=== PATIENT | male | born 1970 | race Two or more races ===

== ENCOUNTER 2024-04-06 19:02 | Emergency (ER) | payer OTHER, SELFPAY ==
[2024-04-06 19:03] VITALS: BMI 28.7
--- NOTE | 2024-04-06 19:11 | XR_ITS ---
Examination: PA lateral chest 2 views Technique: Upright AP lateral chest 2 views Exam date and time: April 06, 2019 0950 hrs. Indications: Shortness of breath chest pain today Findings: Moderate enlargement left ventricle Mild elevation right hemidiaphragm No pneumonia or pulmonary edema Impression: Moderate enlargement left ventricle No pneumonia or pulmonary edema
[2024-04-06 19:16] VITALS: BP 144/103; PULSE 73; RESP 21; TEMP 36.4; O2SAT 100
--- NOTE | 2024-04-06 19:19 | XR_ITS ---
Examination: CT abdomen with intravenous contrast CT pelvis with intravenous contrast 2-D coronal reconstructions 2-D sagittal reconstructions Date and time of exam:April 06, 2024 at 1013 hrs. Indications: Onset left lower abdominal pain beginning last week. CTDI: vol (mGy) 9.31 DLP: (mGycm) 626 Technique: Multiple axial sections of the abdomen and pelvis have been obtained. 64 slice high-resolution scanner used. 3 mm axial sections have been obtained, post intravenous injection 60 cc [id number] 2-D sagittal, coronal reconstructions obtained. Low dose protocols were performed. One or more of the following dose reduction techniques were used; automated exposure control, adjustment of the mA and/or KV according to patient size, use of iterative reconstruction technique. Findings: Bibasilar pneumonia Fatty infiltration throughout the liver No gallstones No splenic pancreatic or adrenal mass Abdominal aorta normal size Moderate bilateral renal parenchymal scar formation, no hydronephrosis Fluid distended small bowel loops in the central and left abdomen with significant wall thickening No free air Free fluid in extensive edema involving the small bowel loops Colonic diverticulosis with inflammatory change about the diverticula No dima pelvic abscess Urinary bladder intact Impression: Bibasilar pneumonia Acute diverticulitis pattern, no pelvic abscess Markedly abnormal small bowel loops with fluid distention wall thickening, consider enteritis such as Crohn's disease, clinical correlation advised
--- NOTE | 2024-04-06 19:20 | PD.EDRME ---
Rapid Medical Screening Exam RME Arrival date/time: 04/06/24 19:02 53 yo m present to ED for c/o of LLQ for 1 week, pain worsen today. + sob I have greeted and performed a focused initial assessment of this patient. A comprehensive ED assessment and evaluation of the patient, analysis of all test results, and completion of the medical decision making process will be conducted by additional ED providers. Chief Complaint: Abdominal Pain Time Seen by Provider: 04/06/24 19:08 Vital signs: Vital Signs Temperature 97.6 F 04/06/24 19:16 Pulse Rate 73 04/06/24 19:16 Respiratory Rate 21 H 04/06/24 19:16 Blood Pressure 144/103 H 04/06/24 19:16 Pulse Oximetry (%) 100 04/06/24 19:16 Oxygen Delivery Method Room Air 04/06/24 19:16
[2024-04-06 20:02] LABS: Lactate (Lactic Acid) 2.6 mMol/L (0.4-2.0)
[2024-04-06 20:04] LABS: Basophils % (Auto) 0 % (0-2.5); Eosinophils # (Auto) 0.1 Thou/mm3 (0.0-0.5); Eosinophils % (Auto) 1 % (0-10); Hematocrit 47.2 % (41.0-53.0); Hemoglobin 16.3 g/dL (13.5-16.0); Immature Granulocytes % (Auto) 1 % (0-0); Immature Granulocytes Auto 0.04 Thou/mm3 (0.00-0.00); Lymphocytes # (Auto) 1.6 Thou/mm3 (1.0-4.8); Lymphocytes % (Auto) 18 % (10-50); Mean Corpuscular HGB Conc 34.5 g/dl (31.0-37.0); Mean Corpuscular Hemoglobin 30.3 pg (25.0-35.0); Mean Corpuscular Volume 88 fL (80-100); Monocytes # (Auto) 0.2 Thou/mm3 (0.0-0.8); Monocytes % (Auto) 2 % (0-12); Neutrophils # (Auto) 6.8 Thou/mm3 (1.8-7.7); Neutrophils % (Auto) 78 % (37-80); Nucleated Red Blood Cell % 0 /100 WBC (0); Platelet Count 367 Thou/mm3 (140-440); RDW Standard Deviation 39.7 fL (35.1-43.9); Red Blood Count 5.38 Miln/mm3 (4.50-5.90); White Blood Count 8.7 Thou/mm3 (3.8-10.6)
[2024-04-06 20:21] LABS: B-Type Natriuretic Peptide 25 pg/mL (0-100)
[2024-04-06] MEDS: ONDANSETRON INJ 2 MG/ML INJ 2 ML 4 MG IV (20:26)
[2024-04-06] MEDS: SODIUM CHLORIDE 0.9% 1000 ML 1,000 ML 999 ML IV (20:26)
[2024-04-06] MEDS: MORPHINE SULF INJ 10 MG/ML VIAL 4 MG IVP (20:27)
[2024-04-06 20:28] LABS: Alanine Aminotransferase 42 U/L (10-49); Albumin, Serum 4.6 gm/dL (3.5-5.0); Albumin/Globulin Ratio 1.6 (1.2-2.2); Alkaline Phosphatase 64 U/L (46-116); Anion Gap 11 (7-16); Aspartate Amino Transferase 26 U/L (0-34); BUN/Creatinine Ratio 12 Ratio (12-20); Bilirubin,Total 0.5 mg/dL (0.3-1.2); Blood Urea Nitrogen 11 mg/dL (9-23); Calcium 10.1 mg/dL (8.3-10.6); Calcium (Corrected) 10.1 mg/dL (8.5-10.1); Carbon Dioxide 27.1 mMol/L (20.0-31.0); Chloride 100 mMol/L (98-107); Creatinine (Component) 0.9 mg/dL (0.6-1.3); Globulin 2.9 gm/dL (2.3-3.5); Glucose 155 mg/dL (74-106); Lipase 32 U/L (12-53); Osmolality,Calculated 278 (275-295); Potassium 3.7 mMol/L (3.4-5.1); Sodium 138 mMol/L (136-145); Total Protein 7.5 gm/dL (5.7-8.2); Troponin I < 0.002 ng/mL (0.0-0.045); eGFR > 60 See Note
[2024-04-06] MEDS: KETOROLAC INJ 30 MG/ML VIAL IVP (21:53)
[2024-04-06 22:27] VITALS: BP 123/76; PULSE 118; RESP 21; TEMP 37.3; O2SAT 100
[2024-04-06 23:00] LABS: Reflex Lactate? Y
[2024-04-06 23:14] LABS: Collection Type, Urine Voided; RBC,Urine 0 /hpf (0-3); Squamous Epithelial Cell,Urine 0 /hpf (0-5); WBC,Urine 0 /hpf (0-5)
[2024-04-06 23:17] LABS: Lactic Acid, 3 HR 3.3 mMol/L (0.4-2.0)
[2024-04-06 23:23] LABS: Bilirubin,Urine Negative (Negative); Blood,Urine Negative (Negative); Clarity,Urine Clear (Clear/Hazy); Color,Urine Yellow (Lt Yel-Yel); Glucose, Urine Negative (Negative); Ketones,Urine Negative (Negative); Leukocyte Esterase,Urine Negative (Negative); Nitrite,Urine Negative (Negative); PH,Urine 5.5 (5.0-7.0); Protein,Urine Trace (Neg - Trace); Urobilinogen,Urine Negative mg/dL (0.0-1.0)
[2024-04-06 23:30] LABS: Specific Gravity,Urine > 1.035 (1.001-1.035)
[2024-04-07] MEDS: PIPER/TAZO INJ 3.375 GM in SODIUM CHLORIDE 0.9% (P) 50 ML IV (00:12)
[2024-04-07] MEDS: SODIUM CHLORIDE 0.9% 1000 ML 1,000 ML 999 ML IV (00:13)
[2024-04-07] MEDS: ACETAMINOPHEN IVPB 1,000 MG/100 ML VIAL 250 MG IV (00:37)
[2024-04-07 01:39] LABS: Lactate (Lactic Acid) 2.8 mMol/L (0.4-2.0)
--- NOTE | 2024-04-07 02:24 | EDNOTE_ITS ---
<Statement entered by Maria R Beverly MD - 04/07/24 03:21> As co-signing physician, I was present and available for consult prn. I concur with the plan and care as documented by the midlevel provider. ED Abdominal Pain RME/HPI General Chief Complaint: Abdominal Pain Stated complaint: ABD PAIN, SOB X2 HRS Time seen by provider: 04/06/24 19:08 Arrival date/time: 04/06/24 19:02 53 year old male present to emergency room with c/o of LLQ pain for 1 week. pain was intermittent but return to day with episode of Shortness of breath. LOCATION: LLQ SEVERITY: Symptoms are described as being severe with limitations on activities of daily living QUALITY: Symptoms are described as being cramping CONTEXT: The patient is unable to identify any inciting events. DURATION/TIMING: The symptoms started approximately 7 day ago and have been waxing/waning but always present without ever completely resolving. ASSOCIATED SYMPTOMS: LLQ, SOB MODIFYING FACTORS: The patient is unable to identify any alleviating or aggravating symptoms. PERTINENT ROS: no fevers, no anorexia, no nausea or vomiting, no diarrhea, no ripping or tearing sensations, no syncope or presyncopal symptoms, denies trauma, denies genital pain denies any hematuria, urgency, frequency REVIEW OF SYSTEMS: See History of Present Illness - with the exception of those mentioned in the history of present illness, all other systems reviewed and reported as negative GENERAL: In general the patient is awake, interactive, in an emergency department gurney. HEAD/EYES/EARS/NOSE/THROAT: normo-cephalic, atraumatic, mucus membranes are moist, anicteric, palpebral conjunctiva is pink, trachea is midline. CARDIOVASCULAR: regular rate and regular rhythm, no murmurs, heart sounds are not distant, strong pulses in all four extremities that are equal and symmetric bilateral upper and lower extremities, normal capillary refill. CHEST/PULMONARY: normal chest rise and fall, good air movement, clear to auscultation bilaterally, normal inspiratory to expiratory ratios without evidence of respiratory distress. NECK: No midline/Paraspinal tenderness, no step off ROM/Strenght intact No Kernig and bruzinski sign. No trauma ABDOMEN: soft, LLQ tenderness no flank tenderness no masses appreciated BACK: normal range of motion without pain. NEUROLOGICAL: cranio-facial features are symmetric, moves all four extremities equally without obvious limitations or weakness. EXTREMITY: no tenderness to palpation over the long bones or large joints of the bilateral upper and lower extremities, no joint swelling, no joint erythema, no signs of trauma, no unilateral leg swelling and no peripheral edema. SKIN: warm, dry, well-perfused, no jaundice, no rash, no telangiectasias or petechia. PSYCH: calm, cooperative, no evidence of psychosis or agitation RME / HPI RME / HPI narrative: 04/06/24 19:02 53 yo m present to ED for c/o of LLQ for 1 week, pain worsen today. + sob I have greeted and performed a focused initial assessment of this patient. A comprehensive ED assessment and evaluation of the patient, analysis of all test results, and completion of the medical decision making process will be conducted by additional ED providers. Related Data Previous Rx's ?Medication ?Instructions ?Recorded amoxicillin 875 mg-potassium 1 tab PO Q8H 5 days #15 tabs 04/07/24 clavulanate 125 mg tablet Allergies Allergy/AdvReac Type Severity Reaction Status Date / Time No Known Allergies Allergy Verified 04/06/24 19:05 Course Course Course Narrative: Patient has diverticulitis that is amenable to oral antibiotics. Patient has no peritoneal signs or signs of perforation. Patient?s symptoms not typical for other emergent causes of abdominal pain such as, but not limited to, appendicitis, abdominal aortic aneurysm, surgical biliary disease, acute coronary syndrome, etc. Patient will be discharged with strict return precautions and follow up with primary MD within 12-24 hours for further evaluation. ?Patient understands that they may require admission and IV antibiotics and possibly surgery if they do not improve with oral antibiotics. Quality Measures none Orders Category Date Time Status CT Screening NOW Care 04/06/24 19:20 Active EKG (ED ONLY) *Do not use* NOW Care 04/06/24 19:11 Completed IV [Insert IV] STAT Care 04/06/24 19:[address] abdomen pelvis w con Stat Exams 04/06/24 19:19 Completed EKG (ED Only) Stat Exams 04/06/24 19:11 Ordered XR chest 2V Stat Exams 04/06/24 19:11 Completed BNP [B-Type Natriuretic Peptide] Stat Lab 04/06/24 19:41 Completed Blood Culture (Lab) Stat Lab 04/06/24 19:35 Received CBC Stat Lab 04/06/24 19:41 Completed CMP [Comprehensive Metabolic Panel] Stat Lab 04/06/24 19:41 Completed Lactic Acid [Lactate (Lactic Acid)] Stat Lab 04/06/24 19:41 Completed Lactic Acid [Lactate (Lactic Acid)] Stat Lab 04/07/24 01:30 Results Lactic Acid, 3 HR Stat Lab 04/06/24 23:13 Completed Lipase Stat Lab 04/06/24 19:41 Completed Troponin I Stat Lab 04/06/24 19:41 Completed UA [Urinalysis] Stat Lab 04/06/24 23:00 Completed Acetaminophen Ivpb [Ofirmev Inj] Med 04/07/24 00:17 Discontinued 1,000 mg in 100 ml IV X1 Ketorolac Inj [Toradol Inj] Med 04/06/24 21:38 Discontinued 30 mg IVP X1 ONE Morphine Inj Med 04/06/24 20:03 Discontinued 4 mg IVP X1 ONE Ondansetron Inj [Zofran Inj] Med 04/06/24 20:03 Discontinued 4 mg IV X1 ONE Piper/Tazo Inj [Zosyn Inj] 3.375 gm Med 04/06/24 23:49 Discontinued Sodium Chloride 0.9% (P) [Ns 0.9% (P)] 50 ml IV X1 Sodium Chloride 0.9% 1000 ml [Ns] 1,000 ml Med 04/06/24 19:21 Discontinued IV 999 mls/hr Sodium Chloride 0.9% 1000 ml [Ns] 1,000 ml Med 04/06/24 23:49 Discontinued IV 999 mls/hr Reevaluation(s) Reevaluation #1: pt report pain has improved lactic acid elevated most likely due to pain, 3rd lactic acid was 2.8. vital sign improved. pt is comfortable to go home and has an appointment with PCP next week Vital Signs Vital signs: Vital Signs Temperature 97.6 F 04/06/24 19:16 Pulse Rate 73 04/06/24 19:16 Respiratory Rate 21 H 04/06/24 19:16 Blood Pressure 144/103 H 04/06/24 19:16 Pulse Oximetry (%) 100 04/06/24 19:16 Oxygen Delivery Method Room Air 04/06/24 19:16 Abdominal Pain MDM Patient data External records reviewed:: None Clinical information provided by:: patient Social determinants that could affect healthcare access:: none Patient has the following chronic illnesses:: n/a How is presenting disease/condition affected by chronic disease/condition?: no chronic disease Evaluation data The following diagnostics were reviewed and interpreted by me:: lab results and radiology exam(s) Lab and/or radiology exams considered but not ordered:: none Interpretation Summary: CT: Bibasilar pneumonia Fatty infiltration throughout the liver No gallstones No splenic pancreatic or adrenal mass Abdominal aorta normal size Moderate bilateral renal parenchymal scar formation, no hydronephrosis Fluid distended small bowel loops in the central and left abdomen with significant wall thickening No free air Free fluid in extensive edema involving the small bowel loops Colonic diverticulosis with inflammatory change about the diverticula No dima pelvic abscess Urinary bladder intact Impression: Bibasilar pneumonia Acute diverticulitis pattern, no pelvic abscess Markedly abnormal small bowel loops with fluid distention wall thickening, consider enteritis such as Crohn's disease, clinical correlation advised cbc/cmp/trop wnl urine no infection Medications / Prescriptions Medications or Prescriptions considered but not ordered:: none Medication administrations:: Medication Administration History Discontinued Medications Sodium Chloride (Ns) 1,000 mls @ 999 mls/hr IV .Q1H1M ONE Stop: 04/06/24 20:21 Last Infusion: 04/06/24 21:28 Dose: Infused Documented By: Admin: 04/06/24 20:26 Dose: 999 mls/hr Documented By: KEVIN Sodium Chloride (Ns) 1,000 mls @ 999 mls/hr IV .Q1H1M ONE Stop: 04/07/24 00:49 Last Infusion: 04/07/24 01:32 Dose: Infused Documented By: Admin: 04/07/24 00:13 Dose: 999 mls/hr Documented By: BETTE Piperacillin Sod/Tazobactam (Sod 3.375 gm/ Sodium Chloride) 50 mls @ 100 mls/hr IV X1 ONE Stop: 04/07/24 00:18 Last Infusion: 04/07/24 01:31 Dose: Infused Documented By: Admin: 04/07/24 00:12 Dose: 100 mls/hr Documented By: BETTE Acetaminophen (Ofirmev Inj) 1,000 mg in 100 mls @ 250 mls/hr IV X1 ONE Stop: 04/07/24 00:40 Last Infusion: 04/07/24 01:31 Dose: Infused Documented By: Admin: 04/07/24 00:37 Dose: 250 mls/hr Documented By: EE Ketorolac Tromethamine (Ketorolac Inj 30 Mg/Ml Vial) 30 mg IVP X1 ONE Stop: 04/06/24 21:39 Last Admin: 04/06/24 21:53 Dose: 30 mg Documented By: DD Morphine Sulfate (Morphine Sulf Inj 10 Mg/Ml Vial) 4 mg IVP X1 ONE Stop: 04/06/24 20:04 Last Admin: 04/06/24 20:27 Dose: 4 mg Documented By: DD Ondansetron HCl (Ondansetron Inj 2 Mg/Ml Inj 2 Ml) 4 mg IV X1 ONE; Protocol Stop: 04/06/24 20:04 Last Admin: 04/06/24 20:26 Dose: 4 mg Documented By: DD as stated above Consultations Consultation(s) initiated? (list below): No Diagnosis Differential diagnosis abdominal pain: abdominal pain, acute appendicitis, calcu chu of kidney, diverticulitis, gastroenteritis, pancreatitis and small bowel obstruction Most likely diagnosis given after review of the tests above:: diverticulitis Admission Indicated Admission indicated?: not indicated Admission Request Was there a request for admission?: No Disposition Plan Disposition Plan: Discharge Discharge Attestation Discharge Attestation: The patient and all family members were given an opportunity to ask questions and understood the discharge instructions. Discharge instructions specifically effects, indications for sooner follow up or return to the emergency department, and the expected course of current diagnosis. Patient condition: Stable Discharge Plan Plan Patient Disposition: HOME (Self Care) Health Concerns: Follow with PMD as directed Take tylenol or motrin as need Return to ED if sx worsen Prescriptions/Referrals Prescriptions/Med Rec: New amoxicillin-pot clavulanate 875-125 mg tablet 1 tab PO Q8H 5 Days Qty: 15 0RF Referrals: No Primary/Family,Physician [Primary Care Provider] - In 1 week Problem List Clinical Impression: Diverticulitis Patient/Caregiver Discharge Instructions Education Materials: ED Diverticulitis Print Language: Hebrew Stand Alone Forms: Audra Award Info., Patient Portal Info Letter
[2024-04-07 02:34] VITALS: BP 127/77; PULSE 88; RESP 18; TEMP 37.7; O2SAT 100
[2024-04-07 04:38] LABS: Reflex Lactate? Y
== END 2024-04-07 02:45 | disposition home or self-care (01) ==
PROVIDERS: Physician Assistant; Emergency Provider Emergency Medicine
DX: K57.32 Diverticulitis of large intestine without perforation or abscess without bleeding (principal); J18.9 Pneumonia, unspecified organism; K63.89 Other specified diseases of intestine
CPT/HCPCS: 36415; 71046; 74177; 80053; 81001; 83605; 83690; 83880; 84484; 85025; 87040; 93005; 96361; 96365; 96368; 96375; 99285; A4649; J0131; J1885; J2270; J2405; J2543; J7030; J7050; Q9967

== ENCOUNTER 2024-04-15 17:20 | Inpatient (IN) | payer OTHER, SELFPAY ==
[2024-04-15 17:21] VITALS: BMI 28.7
[2024-04-15 18:18] VITALS: BP 130/88; PULSE 98; RESP 19; TEMP 36.7; O2SAT 98
--- NOTE | 2024-04-15 18:26 | PD.EDRME ---
Rapid Medical Screening Exam RME Arrival date/time: 04/15/24 17:20 53-year-old male recently completed outpatient antibiotics for diverticulitis presents emergency department complaining of abdominal pain and distention and reports was sent by GI specialist Dr. Denton to the ER for IV antibiotics. Chief Complaint: Abdominal Pain Time Seen by Provider: 04/15/24 18:06 Vital signs: Vital Signs Temperature 98.0 F 04/15/24 18:18 Pulse Rate 98 04/15/24 18:18 Respiratory Rate 19 04/15/24 18:18 Blood Pressure 130/88 H 04/15/24 18:18 Pulse Oximetry (%) 98 04/15/24 18:18 Oxygen Delivery Method Room Air 04/15/24 18:18 Vital signs reviewed by provider: Yes
[2024-04-15 19:05] LABS: Basophils # (Auto) 0.1 Thou/mm3 (0.0-0.2); Basophils % (Auto) 0 % (0-2.5); Eosinophils % (Auto) 0 % (0-10); Hematocrit 46.4 % (41.0-53.0); Hemoglobin 15.9 g/dL (13.5-16.0); Immature Granulocytes % (Auto) 2 % (0-0); Immature Granulocytes Auto 0.33 Thou/mm3 (0.00-0.00); Lymphocytes # (Auto) 1.3 Thou/mm3 (1.0-4.8); Lymphocytes % (Auto) 7 % (10-50); Mean Corpuscular HGB Conc 34.3 g/dl (31.0-37.0); Mean Corpuscular Hemoglobin 29.4 pg (25.0-35.0); Mean Corpuscular Volume 86 fL (80-100); Monocytes # (Auto) 1.3 Thou/mm3 (0.0-0.8); Monocytes % (Auto) 7 % (0-12); Neutrophils # (Auto) 15.5 Thou/mm3 (1.8-7.7); Neutrophils % (Auto) 84 % (37-80); Nucleated Red Blood Cell % 0 /100 WBC (0); Platelet Count 617 Thou/mm3 (140-440); RDW Standard Deviation 41.3 fL (35.1-43.9); White Blood Count 18.4 Thou/mm3 (3.8-10.6)
--- NOTE | 2024-04-15 19:27 | XR_ITS ---
Examination: CT abdomen with intravenous contrast CT pelvis with intravenous contrast 2-D coronal reconstructions 2-D sagittal reconstructions Date and time of exam:April 15, 20242 hours Comparison April 06, 2024. INDICATIONS: Left lower abdominal pain this week CTDI: vol (mGy) 8.48 DLP: (mGycm) 595 Technique: Multiple axial sections of the abdomen and pelvis have been obtained. 64 slice high-resolution scanner used. 3 mm axial sections have been obtained, post intravenous injection 30 cc Isovue-300 2-D sagittal, coronal reconstructions obtained. Low dose protocols were performed. One or more of the following dose reduction techniques were used; automated exposure control, adjustment of the mA and/or KV according to patient size, use of iterative reconstruction technique. Findings: Diffuse fatty liver No gallstones Spleen not enlarged No pancreatic mass Bilateral 1 to 2 mm renal calculi Small bowel obstruction Acute diverticulitis Bilobed abscess collection, transverse dimension 18 cm No free air IMPRESSION: Acute diverticulitis Small bowel obstruction Bilobed the lower abdomen pelvic abscess 18 cm transverse dimension
[2024-04-15 19:31] LABS: Alanine Aminotransferase 92 U/L (10-49); Albumin, Serum 4.3 gm/dL (3.5-5.0); Albumin/Globulin Ratio 1.2 (1.2-2.2); Alkaline Phosphatase 141 U/L (46-116); Anion Gap 12 (7-16); Aspartate Amino Transferase 76 U/L (0-34); BUN/Creatinine Ratio 19 Ratio (12-20); Blood Urea Nitrogen 33 mg/dL (9-23); C-Reactive Protein 30.3 mg/dL (0.0-0.9); Calcium 9.5 mg/dL (8.3-10.6); Calcium (Corrected) 9.5 mg/dL (8.5-10.1); Carbon Dioxide 26.7 mMol/L (20.0-31.0); Chloride 93 mMol/L (98-107); Creatinine (Component) 1.7 mg/dL (0.6-1.3); Estimated Creatinine Clearance 58.2 mL/min (>60); Globulin 3.6 gm/dL (2.3-3.5); Glucose 122 mg/dL (74-106); Lipase 35 U/L (12-53); Osmolality,Calculated 272 (275-295); Potassium 3.7 mMol/L (3.4-5.1); Sodium 132 mMol/L (136-145); Total Protein 7.9 gm/dL (5.7-8.2); eGFR 48 See Note
[2024-04-15] MEDS: ONDANSETRON ODT 4 MG TABRAP PO (19:53)
[2024-04-15] MEDS: KETOROLAC INJ 60 MG/2 ML VIAL 30 MG IM (19:54)
[2024-04-15 20:05] LABS: Collection Type, Urine Clean Catch
[2024-04-15 20:30] LABS: Lactate (Lactic Acid) 1.9 mMol/L (0.4-2.0)
[2024-04-15 20:36] LABS: Bacteria,Urine Rare; Bilirubin,Urine Negative (Negative); Blood,Urine Trace (Negative); Clarity,Urine Turbid (Clear/Hazy); Color,Urine Drk-Yellow (Lt Yel-Yel); Glucose, Urine Negative (Negative); Hyaline Casts,Urine < 1 /hpf (0-1); Ketones,Urine Trace (Negative); Leukocyte Esterase,Urine Negative (Negative); Nitrite,Urine Negative (Negative); PH,Urine 5.5 (5.0-7.0); Protein,Urine 1+ (Neg - Trace); RBC,Urine 7 /hpf (0-3); Specific Gravity,Urine 1.024 (1.001-1.035); Squamous Epithelial Cell,Urine 1 /hpf (0-5); WBC,Urine 44 /hpf (0-5)
[2024-04-15 20:59] LABS: Culture Indicated,Urine Yes
[2024-04-15 21:12] LABS: Procalcitonin 1.75 ng/ml (0.0-0.49)
--- NOTE | 2024-04-15 22:15 | PRELIM_ITS ---
CT scan of the abdomen and pelvis with intravenous contrast (axial sections with sagittal and coronal reformats): April 15, 2024 at 2052 hours Clinical History: Rule out diverticulitis abscess. Comparison: No prior study is available for comparison. Findings: Fatty infiltration of the liver is noted. The gallbladder is distended without any evidence of calculus, wall thickening, pericholecystic fluid/fat stranding. There are non-obstructing bilateral renal calculi, the largest measuring 3 mm in the left kidney. Nonspecific perinephric fat stranding is noted bilaterally. The pancreas, spleen and adrenals are unremarkable. There is mild thickening of the distal esophagus, which may be related to reflux esophagitis. The appendix is within normal limits (coronal images 83- 98/155). There is no mesenteric or retroperitoneal adenopathy. There is a multiloculated rim enhancing fluid collection with air loculi, measuring 9 x 17 x 8 cm in the mid and lower abdomen with adjacent ill defined fat stranding (axial image 158/339) between small bowel loops, extending inferiorly to the level of sigmoid colon. There is a rim enhancing fluid col lection measuring 8.4 x 7 x 4.3 cm in the pelvis (axial image 214/339) with possible communication with abscess in the abdomen. There is a another rim enhancing fluid collection measuring 1.2 x 1.5 cm adjacent to the sigmoid colon (axial image 198/339). There is mild wall thickening of proximal and mid sigmoid colon with multiple diverticula. There are fluid filled and dilated and distal small bowel loops with air fluid levels with possible transition in the mid ileum. There is mild wall thickening of the small bowel loops adjacent to the abscess, likely reactive. The urinary bladder is incompletely distended at the time of the examination and appears mildly thick walled with perivesical fat stranding. There is mild ascites. There is no free air. Degenerative changes are identified in the spine. Bibasilar streaky atelectasis is present. There is trace pericardial effusion. Impression: 1. Findings suggestive of large multiloculated abscess in mid and lower abdomen with additional abscess in pelvis with possible communication as described, likely related to perforated complicated sigmoid diverticulitis. 2. Findings suggestive of small bowel obstruction with transition in mid ileum with reactive enteritis as described. 3. Findings suggestive of cystitis as described. 4. Nonobstructing bilateral renal calculi. 5. Other findings as described above. Report Electronically Signed By: Hiren Dinero 04/15/2024 10:15:02 PM [EST]
--- NOTE | 2024-04-15 22:33 | EDNOTE_ITS ---
ED Abdominal Pain RME/HPI General Chief Complaint: Abdominal Pain Stated complaint: LEFT SIDE ABD. PAIN AND DIARRHEA SENT BY MARY Time seen by provider: 04/15/24 18:06 Arrival date/time: 04/15/24 17:20 53-year-old male recently completed outpatient antibiotics for diverticulitis presents emergency department complaining of abdominal pain and distention. Patient reports was sent by GI specialist Dr. Denton to the ER for IV antibiotics. Patient recently was seen in the ER on 04/07/2024 diagnosed with diverticulitis and discharged on oral antibiotics. Patient presents with increased pain, distention, and poor oral intake due to reporting increasing nausea and burning pain. Patient denies any fever, vomiting, rectal bleeding, or any other associated symptom. Mode of arrival: ambulatory Limitations: no limitations RME / HPI RME / HPI narrative: 04/15/24 17:20 53-year-old male recently completed outpatient antibiotics for diverticulitis presents emergency department complaining of abdominal pain and distention and reports was sent by GI specialist Dr. Denton to the ER for IV antibiotics. Related Data Allergies Allergy/AdvReac Type Severity Reaction Status Date / Time No Known Allergies Allergy Verified 04/15/24 17:25 Review of Systems Review of Systems Systems Reviewed: All systems reviewed, normal except as documented Constitutional Constitutional: Reports system reviewed and no additional complaints, except as documented, Denies body ache(s), Denies chills and Denies fever(s) Eyes Eyes: Reports system reviewed and no additional complaints, except as documented and Denies change in vision ENT Ears, Nose, Mouth, and Throat: Reports system reviewed and no additional compla ints, except as documented, Denies disequilibrium, Denies dizziness, Denies sore throat and Denies vertigo Cardiovascular Cardiovascular: Reports system reviewed and no additional complaints, except as documented, Denies chest pain and Denies dyspnea Respiratory Respiratory: Reports system reviewed and no additional complaints, except as documented, Denies chest congestion, Denies cough and Denies dyspnea Gastrointestinal Gastrointestinal: Reports system reviewed and no additional complaints, except as documented, Reports abdominal pain, Reports bloating, Reports nausea and Denies vomiting Musculoskeletal Musculoskeletal: Reports system reviewed and no additional complaints, except as documented, Denies abnormal gait and Denies arthralgias Integumentary/Breasts Skin/Breast: Reports system reviewed and no additional complaints, except as documented, Denies erythema, Denies rash and Denies wounds Neurologic Neurologic: Reports system reviewed and no additional complaints, except as documented, Denies abnormal gait, Denies disequilibrium, Denies dizziness and Denies vertigo Past Medical History Past Medical History CARDIAC: Negative Cardiac Disorders RESPIRATORY: Negative Asthma GENITOURINARY: Negative Renal Disease ENDOCRINE: Negative Diabetes Mellitus Type 2 HEMATOLOGIC: Negative Sickle Cell Disease Social History SMOKING STATUS: Never smoker ED Exam General Limitations: Present no limitations General appearance: Present alert and in no apparent distress Head Head exam: Present atraumatic Eye Eye exam: Present normal appearance, PERRL and EOMI ENT ENT exam: Present normal exam, normal oropharynx and mucous membranes moist Neck Neck exam: Present normal inspection, full ROM and trachea midline Chest Chest inspection: Present normal inspection and symmetric chest wall rise Respiratory Respiratory exam: Present normal lung sounds bilaterally Cardiovascular Cardiovascular exam: Present regular rate, normal rhythm and normal heart sounds Abdominal Exam Abdominal exam: Present soft, distention, tenderness, guarding and normal bowel sounds Abdominal tenderness: Present LLQ Extremities Exam Extremities exam: Present normal inspection and full ROM Back Exam Back exam: Present normal inspection and full ROM Neurological Exam Neurological exam: Present alert, oriented X3 and CN II-XII intact Psychiatric Psychiatric exam: Present normal affect and normal mood Skin Skin exam: Present warm, dry, intact and normal color Course Quality Measures none Orders Category Date Time Status COVID-19 Screening Questionnaire NOW Care 04/15/24 22:[address] Screening NOW Care 04/15/24 19:27 Active Decision to Admit X1 Care 04/15/24 22:30 Active Insert IV NOW Care 04/15/24 19:28 Active Consult to General Surgery Stat Cons 04/15/24 22:[address] abdomen pelvis w con Stat Exams 04/15/24 19:27 Taken Blood Culture (Lab) Stat Lab 04/15/24 20:18 Received CBC Stat Lab 04/15/24 18:44 Completed CMP [Comprehensive Metabolic Panel] Stat Lab 04/15/24 18:44 Completed CRP [C-Reactive Protein] Stat Lab 04/15/24 18:44 Completed Lactic Acid [Lactate (Lactic Acid)] Stat Lab 04/15/24 20:18 Completed Lipase Stat Lab 04/15/24 18:44 Completed Procalcitonin Stat Lab 04/15/24 20:18 Completed Urinalysis, C/S if Indicated Stat Lab 04/15/24 19:45 Completed Urine Culture Stat Lab 04/15/24 19:45 Received Ketorolac Inj [Toradol Inj] Med 04/15/24 18:25 Discontinued 30 mg IM X1 ONE Ondansetron Odt [Zofran Odt] Med 04/15/24 18:26 Discontinued 4 mg PO X1 ONE Sodium Chloride 0.9% 1000 ml [Ns] 1,000 ml Med 04/15/24 22:33 Ordered IV 125 mls/hr cefTRIAXone/D5w 1gm IV premix [Rocephin/D5w 1gm IV Med 04/15/24 22:21 Active premix] 50 ml IV X1 metroNIDAZOLE/NS 500 MG IVPB [Flagyl 500 mg IV] Med 04/15/24 22:22 Active 500 mg in 100 ml IV X1 Vital Signs Vital signs: Vital Signs Temperature 98.0 F 04/15/24 18:18 Pulse Rate 98 04/15/24 18:18 Respiratory Rate 19 04/15/24 18:18 Blood Pressure 130/88 H 04/15/24 18:18 Pulse Oximetry (%) 98 04/15/24 18:18 Oxygen Delivery Method Room Air 04/15/24 18:18 98% room air within normal limits Abdominal Pain MDM MDM Narrative MDM Narrative:: 53-year-old male recently completed outpatient antibiotics for diverticulitis presents emergency department complaining of abdominal pain and distention. Patient reports was sent by GI specialist Dr. Denton to the ER for IV antibiotics. Patient recently was seen in the ER on 04/07/2024 diagnosed with diverticulitis and discharged on oral antibiotics. Patient presents with increased pain, distention, and poor oral intake due to reporting increasing nausea and burning pain. Patient denies any fever, vomiting, rectal bleeding, or any other associated symptom. CBC was remarkable for leukocytosis of 18.4. CMP was remarkable for elevated BUN and creatinine 33?1.7 with elevated LFTs possibly from poor oral intake due to pain. CRP 30.3, procalcitonin 1.75, and normal lactic of 1.9. Abdomen pelvis with contrast impression: Findings suggestive of large multiloculated abscess in mid and lower abdomen with additional abscess in pelvis with possible communication likely related to a perforated complicated sigmoid diverticulitis. Findings suggestive of small bowel obstruction with transition in mid ileum with reactive enteritis as described. On-call general surgeon Dr. Yanez consulted and agrees to admit patient for IV antibiotics and possible abscess drainage. On-call hospitalist Dr. Moss consulted and agrees to admit patient. Patient stable at time of admission. Patient data External records reviewed:: [facility] previous records Clinical information provided by:: patient Social determinants that could affect healthcare access:: none Patient has the following chronic illnesses:: None How is presenting disease/condition affected by chronic disease/condition?: no chronic disease Evaluation data The following diagnostics were reviewed and interpreted by me:: lab results and radiology exam(s) Lab and/or radiology exams considered but not ordered:: Ordered Interpretation Summary: Interpreted by me Medications / Prescriptions Medications or Prescriptions considered but not ordered:: Ordered Medication administrations:: Medication Administration History Ceftriaxone Sodium/Dextrose (Rocephin/D5w 1gm Iv Premix) 50 mls @ 100 mls/hr IV X1 ONE Stop: 04/15/24 22:50 Metronidazole (Flagyl 500 Mg Iv) 500 mg in 100 mls @ 200 mls/hr IV X1 ONE Stop: 04/15/24 22:51 Sodium Chloride (Ns) 1,000 mls @ 125 mls/hr IV .Q8H ONE Stop: 04/16/24 06:32 Discontinued Medications Ketorolac Tromethamine (Ketorolac Inj 60 Mg/2 Ml Vial) 30 mg IM X1 ONE Stop: 04/15/24 18:26 Last Admin: 04/15/24 19:54 Dose: 30 mg Documented By: JUAN Ondansetron HCl (Ondansetron Odt 4 Mg Tabrap) 4 mg PO X1 ONE; Protocol Stop: 04/15/24 18:27 Last Admin: 04/15/24 19:53 Dose: 4 mg Documented By: JUAN Given Consultations Consultation(s) initiated? (list below): Yes Consultation #1 (Physician, Specialty, Details): Dr. Ajay Chahal Diagnosis Differential diagnosis abdominal pain: diverticulitis, small bowel obstruction and other (Perforated bowel, peritonitis) Most likely diagnosis given after review of the tests above:: Perforated sigmoid diverticulitis Small bowel obstruction Admission Indicated Admission indicated?: indicated Admission Request Was there a request for admission?: Yes Admission Attestation Admission request attestation: Discussed case with [Dr. Moss] from Hospitalist service regarding admission. Discussed patients ED course, exam findings, labs, and radiology results. The Hospitalist [agrees] to accept the patient for admission. Disposition Plan Disposition Plan: Admit Discharge Plan Plan Patient Disposition: Admit Acute Care w/in Hospital Disposition Comment: Stable Prescriptions/Referrals Referrals: No Primary/Family,Physician [Primary Care Provider] - In 1 week Problem List Clinical Impression: Perforation of sigmoid colon due to diverticulitis, Small bowel obstruction Patient/Caregiver Discharge Instructions Print Language: Uzbek Stand Alone Forms: Audra Award Info., Patient Portal Info Letter PA/CLINICAL DATA MANAGEMENT DIRECTOR Supervising Physician PA/CLINICAL DATA MANAGEMENT DIRECTOR Supervising Physician: Dr. Purvis
[2024-04-15] MEDS: SODIUM CHLORIDE 0.9% 1000 ML 1,000 ML 125 ML IV (23:00)
[2024-04-15] MEDS: cefTRIAXone/D5w 1gm IV premix 50 ML IV (23:00)
--- NOTE | 2024-04-15 23:04 | EKG_ITS ---
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
[2024-04-15 23:19] VITALS: BP 145/89; PULSE 72; RESP 18; TEMP 36.9; O2SAT 95
[2024-04-15] MEDS: metroNIDAZOLE/NS 500 MG IVPB 500 MG/100 ML BAG 200 MG IV (23:29)
[2024-04-15 23:32] VITALS: PULSE 71; RESP 18; RESP 97
[2024-04-15] MEDS: HEPARIN SOD INJ 5000 UNIT/ML VIAL SC (23:47)
[2024-04-15] MEDS: PIPER/TAZO INJ 4.5 GM in SODIUM CHLORIDE 0.9% (P) 100 ML IV (23:47)
[2024-04-16] VITALS (7 sets, daily range): BP systolic 126–155; BP diastolic 80–100; PULSE 77–123; RESP 16–94; TEMP 35.9–36.9; O2SAT 93–95; BMI 28.9; BMI 28.8
--- NOTE | 2024-04-16 00:16 | ESHP_ITS ---
Documentation for date of: 04/16/24 HPI History of Present Illness Chief complaint: Complicated sigmoid diverticulitis History of present illness: Mr. William is a 53-year-old male who presented to [facility] emergency department on 04/15/24 with a chief complaints of abdominal pain and distention. Patient was recently seen in the ED on 04/07/2024 diagnosed with diverticulitis and was discharged on oral antibiotics. Patient reported that his symptoms did not subside and progressively got worse reports having increased pain, distention and poor oral intake with increasing nausea and burning pain. Patient does report that his symptoms started initially after eating corn from street cart, reported having large bowel movement after. Patient denies any fevers and chills, reports small multiple soft bowel movements on a daily basis for the last week. Patient was seen and evaluated by GI specialist earlier today who advised patient to go to the ER. In the ED CT abdomen pelvis findings suggestive of large multiloculated abscess in mid and lower abdomen with additional abscess in pelvis with possible communication likely secondary to perforated complicated sigmoid diverticulitis. General surgeon was consulted in ED and she recommended admission for further workup. Patient reports having 3 bowel movements a day normally before symptoms started, denies any family or personal history of inflammatory bowel disease. Patient denies any recent travel, sick contacts, diarrhea and vomiting. ED Course: ED Vitals: ED vitals significant for BP 130/88, P98, RR 19, temp 98.0, O2 sat 98 on room air ED Labs: ED labs significant for WBC 18.4, platelets 617, sodium 132, chloride 93, BUN 33, creatinine 1.7, GFR 48, glucose 122, osmolality 272, lactate 1.9, AST 76, ALT 92, alk phos 141, CRP 30.3, globulin 3.6, Pro-Brian 1.75 UA significant for protein 1+, trace ketones trace blood urine RBC 7 urine WBC 44 bacteria rare ED Imaging: Preliminary report for CT abdomen pelvis with IV contrast shows findings suggestive of large multiloculated abscess in the mid abdomen and lower abdomen with additional abscess in the pelvis and possible communication as described. Findings suggestive of small bowel obstruction with transition in mid ileum with reactive enteritis, cystitis, nonobstructing bilateral renal calculi ED Treatment: Patient was given Zofran x 1, Toradol x 1, ceftriaxone and Flagyl x 1 and was started on NS 125 cc/h in ED. General Surgery consulted in ED. Patient admitted to hospital for further management of complicated sigmoid diverticulitis. Review of Systems Review of Systems Narrative Review of Systems: ROS: -CONSTITUTIONAL: Positive for weight loss, denies fever and chills. -HEENT: Denies changes in vision and hearing. -RESPIRATORY: Denies SOB and cough. -CV: Denies palpitations and Chest Pain. -GI: Positive for abdominal pain, nausea, denies vomiting, constipation and diarrhea. -: Denies dysuria and urinary frequency. -MSK: Denies myalgia and joint pain. -SKIN: Denies rash and pruritus. -NEUROLOGICAL: Denies headache and syncope. -PSYCHIATRIC: Denies recent changes in mood. Denies anxiety and depression. Past Medical History Past Medical History Comments PMH COMMENT: PMH: No significant past medical history PSHx: EGD in past, tendon release Allergies: No known allergies Social history: -Smoking: Denies -Alcohol Use: Occasional alcohol use -Illicit Drug Use: Denies Family History: No family history of IBD, no pertinent family history Exam Vital Signs Temp Pulse Resp BP Pulse Ox O2 Del Method 98.4 F 71 18 145/89 H 95 Room Air 04/15/24 23:19 04/15/24 23:32 04/15/24 23:32 04/15/24 23:19 04/15/24 23:19 04/15/24 23:19 Narrative Exam Physical Exam General: Awake and in no acute distress. Conversational and non-toxic appearing. HEENT: Normocephalic, atraumatic, mucous membranes moist. Heart: Sinus tachycardia, no murmurs. Lungs: Clear to auscultation with no wheezing or crackles. Abdomen: Distended, generalized tenderness, positive bowel sounds. Neurologic: Alert and oriented x3, no gross neurological deficit, and patient able to move all 4 extremities. Extremities: No edema. Skin: No rash or ecchymoses. Results: Labs 04/15/24 18:44 04/15/24 18:44 Labs: Short CBC 04/15/24 Range/Units 18:44 WBC 18.4 H (3.8-10.6) Thou/mm3 Hgb 15.9 (13.5-16.0) g/dL Hct 46.4 (41.0-53.0) % Plt Count 617 H D (140-440) Thou/mm3 BMP 04/15/24 18:44 Sodium 132 L Potassium 3.7 Chloride 93 L Carbon Dioxide 26.7 BUN 33 H Creatinine 1.7 H Glucose 122 H Calcium 9.5 Liver Function 04/15/24 Range/Units 18:44 Total Bilirubin 1.0 (0.3-1.2) mg/dL AST 76 H (0-34) U/L ALT 92 H (10-49) U/L Alkaline Phosphatase 141 H (46-116) U/L Albumin 4.3 (3.5-5.0) gm/dL Urine 04/15/24 Range/Units 19:45 Urine Color Drk-Yellow A (Lt Yel-Yel) Urine Clarity Turbid A (Clear/Hazy) Urine pH 5.5 (5.0-7.0) Ur Specific [place] 1.024 (1.001-1.035) Urine Protein 1+ A (Neg - Trace) Urine Glucose (UA) Negative (Negative) Quality Measures Quality Measures none Medications Home Medications and Allergies Home Medications ?Medication ?Instructions ?Recorded ?Confirmed ?Type No Known Home Medications 04/16/2407/05 History Allergies Allergy/AdvReac Type Severity Reaction Status Date / Time No Known Allergies Allergy Verified 04/15/24 17:25 Visit Medications Acetaminophen (Acetaminophen 325 Mg Tablet) 650 mg PO Q6H PRN PRN Reason: Fever >101.5 Stop: 05/15/24 22:58 Heparin Sodium (Porcine) (Heparin Sod Inj 5000 Unit/Ml Vial) 5,000 unit SC Q12H [facility] Stop: 04/29/24 23:14 Last Admin: 04/15/24 23:47 Dose: 5,000 unit Sodium Chloride (Ns) 1,000 mls @ 125 mls/hr IV .Q8H ONE Stop: 04/16/24 06:32 Last Admin: 04/15/24 23:00 Dose: 125 mls/hr Sodium Chloride (Ns) 1,000 mls @ 100 mls/hr IV .Q10H [facility] Stop: 05/15/24 22:59 Piperacillin Sod/Tazobactam (Sod 3.375 gm/ Sodium Chloride) 100 mls @ 25 mls/hr IV Q8HR [facility] Stop: 04/23/24 05:59 Ondansetron HCl (Ondansetron Inj 2 Mg/Ml Inj 2 Ml) 4 mg IV Q6H PRN; Protocol PRN Reason: NAUSEA OR VOMITING Stop: 05/15/24 22:58 Pantoprazole Sodium (Pantoprazole 40 Mg Tablet) 40 mg PO QDAY [facility] Stop: 05/16/24 08:59 Discontinued Medications Ceftriaxone Sodium/Dextrose (Rocephin/D5w 1gm Iv Premix) 50 mls @ 100 mls/hr IV X1 ONE Stop: 04/15/24 22:50 Last Admin: 04/15/24 23:00 Dose: 100 mls/hr Metronidazole (Flagyl 500 Mg Iv) 500 mg in 100 mls @ 200 mls/hr IV X1 ONE Stop: 04/15/24 22:51 Last Admin: 04/15/24 23:29 Dose: 200 mls/hr Piperacillin Sod/Tazobactam (Sod 4.5 gm/ Sodium Chloride) 100 mls @ 200 mls/hr IV X1 ONE Stop: 04/15/24 23:44 Last Admin: 04/15/24 23:47 Dose: 200 mls/hr Ketorolac Tromethamine (Ketorolac Inj 60 Mg/2 Ml Vial) 30 mg IM X1 ONE Stop: 04/15/24 18:26 Last Admin: 04/15/24 19:54 Dose: 30 mg Ondansetron HCl (Ondansetron Odt 4 Mg Tabrap) 4 mg PO X1 ONE; Protocol Stop: 04/15/24 18:27 Last Admin: 04/15/24 19:53 Dose: 4 mg Assessment & Plan Plan Assessment and Plan: Summary: Mr. William is a 53-year-old male who presented to [facility] emergency department on 04/15/24 with a chief complaints of abdominal pain and distention. Patient was recently seen in the ED on 04/07/2024 diagnosed with diverticulitis and was discharged on oral antibiotics. Patient admitted to hospital for further management of complicated sigmoid diverticulitis. # Complicated sigmoid diverticulitis #Abdominal abscesses #Sepsis secondary to abdominal abscess/diverticulitis, SIRS 2/4 Initially presented to ED on 04/07/24 was diagnosed with diverticulitis, was discharged on oral antibiotics had progressive worsening of symptoms. Patient met SIRS criteria patient tachycardic, WBC count 18.[address] abdomen pelvis with IV contrast shows findings suggestive of large multiloculated abscess in the mid abdomen and lower abdomen with additional abscess in the pelvis and possible communication as described. Findings suggestive of small bowel obstruction with transition in mid ileum with reactive enteritis, cystitis, nonobstructing bilateral renal calculi CT significant for fluid collection 9 X 17 X 8 in mid lower abdomen and fluid can collection measuring 8.4 X 7 X 4.3 and pelvis and 1.2X 1.5 cm in sigmoid colon Pro-Brian 1.75, CRP 30.3 Plan: -Patient started on IV Zosyn (04/15- -maintenance fluids IV NS 100 cc/h -Consulted GI and general surgery, appreciate recommendations -Follow-up blood culture, urine culture #?Partial small bowel obstruction Patient reports last bowel movement earlier this morning a.m., reports passing flatus, bowel sounds positive CT abdomen pelvis suggestive of small bowel obstruction Plan: -Strict n.p.o. -General Surgery consulted, appreciate recs- -will hold NG tube insertion for now, monitor patient for nausea #Acute kidney injury On presentation BUN 33, creatinine 1.7, GFR 48 Patient denies CKD history Plan: -Continue IV maintenance fluids NS 100 cc/h -Avoid nephrotoxic agents -Renally dose meds #Urinary tract infection UA significant for rare bacteria, WBC 44, RBC 7 nitrite and leukocyte esterase negative. Plan: -Continue IV Zosyn -Follow urine culture #Bilateral renal calculi Bilateral renal calculi nonobstructing largest measuring 3 mm in the left kidney, perinephric fat stranding bilaterally Plan: -Consider outpatient workup #Mild transaminitis AST 76, ALT 92, alk phos 141 presentation -Monitor CMP in a.m. #Hypochloremic hyponatremia Continue maintenance fluids, monitor in a.m. DVT prophylaxis: Heparin every 12 hours GI prophylaxis: IV Protonix Diet: N.p.o. Lines: Peripheral IV Code status: Full code Case discussed with Attending Dr. Ajay Baires PGY1 Disclaimer: This note was dictated by speech recognition. Minor errors in bottle blower may be present due to voice recognition software. Attending Provider Attestation/Addendum I attest that I was physically present for the evaluation, physical examination, lab and imaging review of the patient with the residents. I discussed the case with the residents and agree with the findings and plans of care as documented above. Patient is a 53 years old male who presented to the ED with complaint of abdominal pain and distention. Patient was recently seen in the ED on 04/07/2024, who was diagnosed with diverticulitis at that time and was discharged on Augmentin. Patient initially felt better on oral antibiotics and his pain started going down. But his pain did not go away completely, he continued to have abdominal distention, poor appetite, nausea. Patient went to see GI, who evaluated him and recommended to visit the ED. Patient also stated that in general, he usually has multiple episodes of small loose stools. And his last bowel movement was 3 PM this afternoon. He has not passed any bowel or gas after that. In the ED, patient is noted to have a pulse of 98, rest of the vitals were within normal limits. Lab results show WBC of 18.4, BUN/creatinine of 33/1.7, lactate 1.9, procalcitonin 1.75. Urinalysis was obtained, showed [address] with rare [address] abdomen pelvis was also done, which showed large multiloculated abscess in the mid abdomen and lower abdomen with additional abscess in pelvis and possible communication. There was also findings suggestive of small bowel obstruction with transition in mid ileum. It also showed cystitis and nonobstructive bilateral renal calculi. Patient received IV Rocephin and Flagyl along with hydration in the ED. General surgery was contacted by ED, who recommended admission in the hospital. We will admit the patient for management of complicated sigmoid diverticulitis with abdominal abscesses and sepsis secondary to the abscess. We will start patient on IV Zosyn, continue with IV hydration. We will continue with antiemetics and bowel rest. General surgery and GI consult will be obtained. Patient states that his nausea is not very severe, we will hold off on NG tube for now. Arturo Moss MD
[2024-04-16] MEDS: SODIUM CHLORIDE 0.9% 1000 ML 1,000 ML 100 ML IV ×3 (01:06→17:06)
[2024-04-16] MEDS: PIPER/TAZO 3.375 GM 50 ML IV ×3 (05:33→21:04)
[2024-04-16 06:22] LABS: Basophils # (Auto) 0.1 Thou/mm3 (0.0-0.2); Basophils % (Auto) 1 % (0-2.5); Eosinophils % (Auto) 0 % (0-10); Hematocrit 43.2 % (41.0-53.0); Hemoglobin 14.9 g/dL (13.5-16.0); Immature Granulocytes % (Auto) 2 % (0-0); Immature Granulocytes Auto 0.22 Thou/mm3 (0.00-0.00); Lymphocytes # (Auto) 0.9 Thou/mm3 (1.0-4.8); Lymphocytes % (Auto) 8 % (10-50); Mean Corpuscular HGB Conc 34.5 g/dl (31.0-37.0); Mean Corpuscular Hemoglobin 30.1 pg (25.0-35.0); Mean Corpuscular Volume 87 fL (80-100); Monocytes # (Auto) 0.9 Thou/mm3 (0.0-0.8); Monocytes % (Auto) 7 % (0-12); Neutrophils # (Auto) 10.2 Thou/mm3 (1.8-7.7); Neutrophils % (Auto) 83 % (37-80); Nucleated Red Blood Cell % 0 /100 WBC (0); Platelet Count 516 Thou/mm3 (140-440); RDW Standard Deviation 42.3 fL (35.1-43.9); Red Blood Count 4.95 Miln/mm3 (4.50-5.90); White Blood Count 12.3 Thou/mm3 (3.8-10.6)
[2024-04-16 06:37] LABS: INR 1.1 (0.9-1.3); Partial Thromboplastin Time 29.4 Seconds (22.0-36.0); Prothrombin Time 11.8 Seconds (9.0-12.2)
[2024-04-16 07:07] LABS: Alanine Aminotransferase 80 U/L (10-49); Albumin/Globulin Ratio 1.2 (1.2-2.2); Alkaline Phosphatase 129 U/L (46-116); Anion Gap 12 (7-16); Aspartate Amino Transferase 60 U/L (0-34); BUN/Creatinine Ratio 28 Ratio (12-20); Bilirubin,Total 0.8 mg/dL (0.3-1.2); Blood Urea Nitrogen 33 mg/dL (9-23); Calcium 9.5 mg/dL (8.3-10.6); Calcium (Corrected) 9.5 mg/dL (8.5-10.1); Carbon Dioxide 26.4 mMol/L (20.0-31.0); Chloride 98 mMol/L (98-107); Creatinine (Component) 1.2 mg/dL (0.6-1.3); Estimated Creatinine Clearance 82.8 mL/min (>60); Globulin 3.3 gm/dL (2.3-3.5); Glucose 98 mg/dL (74-106); Osmolality,Calculated 279 (275-295); Phosphorous 3.6 mg/dL (2.4-5.1); Sodium 136 mMol/L (136-145); Total Protein 7.3 gm/dL (5.7-8.2); eGFR > 60 See Note
[2024-04-16 07:24] LABS: Cardiac Risk Estimate 5.5 RATIO (4.0-6.7); Cholesterol 109 mg/dL (132-200); HDL Cholesterol 20 mg/dL (40-60); LDL Cholesterol,Calculated 65 mg/dL (0-130); Triglycerides 121 mg/dL (30-150)
[2024-04-16] MEDS: PANTOPRAZOLE INJ 40 MG VIAL IVP (08:42)
--- NOTE | 2024-04-16 11:30 | PD.SURCONS ---
HPI Consult details History of present illness: 53M presenting with abdominal pain. Patient reports pain began 10 days ago in the left lower quadrant, he denies any history of similar pain. Pain is associated with loose stools, subjective fever and chills. Patient first presented to the ER when the pain began and at that time had findings of acute diverticulitis but no abscess and he was discharged home with antibiotics, however yesterday he was seen by GI and advised to seek care in ER. While in the ER workup showed WBC 18, and CT indicative of a pelvic abscess Patient reports he has never had a colonoscopy, states that he was feeling very well before pain began 10 days ago. 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 Family history: No known CRC Review of Systems Review of Systems ROS Unobtainable: All systems reviewed & no additional complaints except as documented ENT Ears, Nose, Mouth, and Throat: Denies disequilibrium, Denies dizziness and Denies vertigo Musculoskeletal Musculoskeletal: Denies abnormal gait Neurologic Neurologic: Reports system reviewed and no additional complaints, except as documented, Denies abnormal gait, Denies disequilibrium, Denies dizziness and Denies vertigo Meds Home Medications and Allergies Home Medications ?Medication ?Instructions ?Recorded ?Confirmed ?Type No Known Home Medications 04/16/24 04/16/24 History Allergies Allergy/AdvReac Type Severity Reaction Status Date / Time No Known Allergies Allergy Verified 04/15/24 17:25 Exam Vital Signs Temp Pulse Resp BP Pulse Ox O2 Del Method 98.4 F 123 H 21 H 155/100 H 93 L Room Air 04/16/24 08:00 04/16/24 08:00 04/16/24 08:00 04/16/24 08:00 04/16/24 08:00 04/16/24 08:00 Constitutional Constitutional: no acute distress Routine Respiratory Exam Respiratory: Present no resp distress Routine Abdominal Exam Abdominal: Present soft and tenderness (Moderate left lower quadrant tenderness); Absent distended, rebound or guarding Results Results: Laboratory Laboratory results: results reviewed Results: Imaging CT scan - abdomen: report reviewed and image reviewed Assessment & Plan Plan 53M otherwise healthy presenting with first episode of acute diverticulitis with abscess. I explained that because he is overall clinically well with no signs of peritonitis, the optimal management would be percutaneous drainage. After the procedure patient may be started on a clear liquid diet. All questions were answered and patient is agreeable to this plan
[2024-04-16] MEDS: HYDROmorphone INJ 2 MG/ML VIAL 1 MG IVP ×2 (13:15→20:51)
[2024-04-16] MEDS: ONDANSETRON INJ 2 MG/ML INJ 2 ML 4 MG IV ×2 (13:22→20:53)
--- NOTE | 2024-04-16 13:55 | ESPR_ITS ---
<Statement entered by Darrell Mcpherson MD - 04/16/24 16:05> Agree with plan and examination finding on the note below. Patient seen and examined at bedside today. Labs and imaging reviewed. Patient care discussed with my attending and co-resident . Documentation for date of: 04/16/24 Subjective Subjective Interval history: Patient was seen and examined at bedside this AM. No acute exents overnight. Patient currently n.p.o., adequate urine output and mentation is at baseline. Patient complains of abdominal pain Will schedule patient for IR guided percutaneous drain placement. General Surgery, Dr. Chahal consulted and agreed with above management. Exam Vital Signs Temp Pulse Resp BP Pulse Ox O2 Del Method 98.0 F 84 19 131/80 H 95 Room Air 04/16/24 12:00 04/16/24 12:00 04/16/24 12:00 04/16/24 12:00 04/16/24 12:04/16/24 12:00 Narrative Exam Constitutional Alert, oriented x 3 and in mild distress. Middle-age male HEENT Vision grossly intact. Patent nares. Trachea midline Respiratory Chest normal on inspection and clear auscultation bilaterally Cardiovascular S1 and S2 audible, RRR. No murmurs carotid bruit. No gross JVD. Abdominal Soft, painful to palpation in left lower quadrant, mass palpated. Bowel sounds present Genitourinary No bladder tenderness, no flank pain. Normal to palpation Musculoskeletal Extremities tone within normal limits. No LE edema. Neurological CN II - XII grossly intact. Extremity motor and sensation grossly intact. Skin Warm, dry and intact. No apparent lesions. Psychiatric Patient has good affect, is cooperative Objective Labs 04/16/24 05:32 04/16/24 05:32 Labs: Laboratory Results - last 24 hr 04/15/24 04/15/24 04/15/24 18:44 19:45 20:18 WBC 18.4 H RBC 5.40 Hgb 15.9 Hct 46.4 MCV 86 MCH 29.4 MCHC 34.3 RDW Std Deviation 41.3 Plt Count 617 H D Neut % (Auto) 84 H Lymph % (Auto) 7 L [place] % (Auto) 7 Eos % (Auto) 0 Baso % (Auto) 0 Neut # (Auto) 15.5 H Lymph # (Auto) 1.3 [place] # (Auto) 1.3 H Eos # (Auto) 0.0 Baso # (Auto) 0.1 Immature Gran # (Auto) 0.33 H Absolute Nucleated RBC 0.00 Immature Gran % 2 H Nucleated RBC % 0 PT INR APTT Sodium 132 L Potassium 3.7 Chloride 93 L Carbon Dioxide 26.7 Anion Gap 12 BUN 33 H Creatinine 1.7 H Estim Creat Clear Calc 58.2 L eGFR 48 L BUN/Creatinine Ratio 19 Glucose 122 H Calculated Osmolality 272 L Lactic Acid 1.9 Calcium 9.5 Corrected Calcium 9.5 Phosphorus Magnesium Total Bilirubin 1.0 AST 76 H ALT 92 H Alkaline Phosphatase 141 H C-Reactive Prot, Quant 30.3 H Total Protein 7.9 Albumin 4.3 Globulin 3.6 H Albumin/Globulin Ratio 1.2 Triglycerides Cholesterol LDL Cholesterol, Calc HDL Cholesterol Cholesterol/HDL Ratio Lipase 35 Procalcitonin 1.75 H Ur Collection Type Clean Catch Urine Color Drk-Yellow A Urine Clarity Turbid A Urine pH 5.5 Ur Specific [place] 1.024 Urine Protein 1+ A Urine Glucose (UA) Negative Urine Ketones Trace Urine Blood Trace Urine Nitrite Negative Urine Bilirubin Negative Urine Urobilinogen (Auto) 3.0 Ur Leukocyte Esterase Negative Urine RBC 7 H Urine WBC 44 H Ur Squamous Epith Cells 1 Urine Bacteria Rare Hyaline Casts < 1 Ur Culture Indicated? Yes 04/16/24 05:32 WBC 12.3 H D RBC 4.95 Hgb 14.9 Hct 43.2 MCV 87 MCH 30.1 MCHC 34.5 RDW Std Deviation 42.3 Plt Count 516 H D Neut % (Auto) 83 H Lymph % (Auto) 8 L [place] % (Auto) 7 Eos % (Auto) 0 Baso % (Auto) 1 Neut # (Auto) 10.2 H Lymph # (Auto) 0.9 L [place] # (Auto) 0.9 H Eos # (Auto) 0.0 Baso # (Auto) 0.1 Immature Gran # (Auto) 0.22 H Absolute Nucleated RBC 0.00 Immature Gran % 2 H Nucleated RBC % 0 PT 11.8 INR 1.1 APTT 29.4 Sodium 136 Potassium 4.0 Chloride 98 Carbon Dioxide 26.4 Anion Gap 12 BUN 33 H Creatinine 1.2 D Estim Creat Clear Calc 82.8 eGFR > 60 BUN/Creatinine Ratio 28 H Glucose 98 Calculated Osmolality 279 Lactic Acid Calcium 9.5 Corrected Calcium 9.5 Phosphorus 3.6 Magnesium 2.0 Total Bilirubin 0.8 AST 60 H ALT 80 H Alkaline Phosphatase 129 H C-Reactive Prot, Quant Total Protein 7.3 Albumin 4.0 Globulin 3.3 Albumin/Globulin Ratio 1.2 Triglycerides 121 Cholesterol 109 L LDL Cholesterol, Calc 65 HDL Cholesterol 20 L Cholesterol/HDL Ratio 5.5 Lipase Procalcitonin Ur Collection Type Urine Color Urine Clarity Urine pH Ur Specific [place] Urine Protein Urine Glucose (UA) Urine Ketones Urine Blood Urine Nitrite Urine Bilirubin Urine Urobilinogen (Auto) Ur Leukocyte Esterase Urine RBC Urine WBC Ur Squamous Epith Cells Urine Bacteria Hyaline Casts Ur Culture Indicated? Quality Measures Quality Measures none Assessment & Plan Assessment Current Active Medications: Generic Name Dose Route Start Last Admin Trade Name Freq PRN Reason Stop Dose Admin Acetaminophen 650 mg 04/15/24 22:59 Acetaminophen 325 Mg Tablet PO 05/15/24 22:58 Q6H PRN Fever >101.5 Heparin Sodium (Porcine) 5,000 unit 04/15/24 23:15 04/15/24 23:47 Heparin Sod Inj 5000 Unit/Ml Vial SC 04/29/24 23:14 5,000 unit Q12H ILDEFONSO Administration Hydromorphone HCl 1 mg 04/16/24 13:03 04/16/24 13:15 Hydromorphone Inj 2 Mg/Ml Vial IVP 04/21/24 13:02 1 mg Q4HR PRN Administration PAIN Sodium Chloride 1,000 mls @ 100 mls/hr 04/15/24 23:00 04/16/24 05:40 Ns IV 05/15/24 22:59 100 mls/hr .Q10H ILDEFONSO Administration Piperacillin/Tazobactam/Dextrose 50 mls @ 12.5 mls/hr 04/16/24 06:00 04/16/24 13:15 Zosyn IV 04/23/24 05:59 12.5 mls/hr Q8HR ILDEFONSO Administration Ondansetron HCl 4 mg 04/15/24 22:59 04/16/24 13:22 Ondansetron Inj 2 Mg/Ml Inj 2 Ml IV 05/15/24 22:58 4 mg Q6H PRN Administration NAUSEA OR VOMITING Protocol Pantoprazole Sodium 40 mg 04/16/24 09:00 04/16/24 08:42 Pantoprazole Inj 40 Mg Vial IVP 05/16/24 08:59 40 mg QDAY ILDEFONSO Administration Plan Mr. William is a 53-year-old male who presented to [facility] emergency department on 04/15/24 with a chief complaints of abdominal pain and distention. Patient was recently seen in the ED on 04/07/2024 diagnosed with diverticulitis and was discharged on oral antibiotics. Patient admitted to hospital for further management of complicated sigmoid diverticulitis. 1. Complicated sigmoid diverticulitis with pelvic abscess 2. Sepsis secondary to perforated diverticulitis Initially presented to ED on 04/07/24 was diagnosed with diverticulitis, was discharged on oral antibiotics had progressive worsening of symptoms. Patient met SIRS criteria patient tachycardic, WBC count 18.4. Patient also had endorgan damage of BENEDICT Abdomen/pelvis CT completed on 04/15/2024 findings include: Bilobed pelvic abscess collection, transverse dimension 18 cm Pro-Brian 1.75, CRP 30.3 Plan: ? CT-guided percutaneous drain placement ordered for pelvic abscess - Continue IV Zosyn (04/15- - Maintenance fluids IV NS 100 cc/h ? General Surgery, Dr. Chahal consulted. Recommended IR guided drain placement ? GI, Dr. Denton consulted. Appreciate recommendations 3. Acute kidney injury prerenal versus renal?resolving On presentation BUN 33, creatinine 1.7, GFR 48 BUN improved to 33 and CR 1.2 Plan: -Continue IV maintenance fluids NS 100 cc/h -Avoid nephrotoxic agents -Renally dose meds 4. Urinary tract infection UA significant for rare bacteria, WBC 44, RBC 7 nitrite and leukocyte esterase negative. Plan: - Continue IV Zosyn - Urine culture pending 5. Bilateral renal calculi Bilateral renal calculi nonobstructing largest measuring 3 mm in the left kidney, perinephric fat stranding bilaterally Plan: -Consider outpatient workup 6. Mild transaminitis?resolving AST 76 ---> 60 , ALT 92---> 80, alk phos 141 ---> 129 Plan: ? Continue to monitor on CMP 7. Hypochloremic hyponatremia?resolved Continue maintenance fluids, monitor in a.m. NA 136, CL 98 Health maintenance: Disposition: Pending CT-guided percutaneous drain placement by IR. Diet: N.p.o. Lines: pIVs GI Prophylaxis: Pantoprazole IV Thrombo Prophylaxis: None Code status: FULL CODE Plan of care discussed with Attending Dr. Parks and PGY3 Dr. Ky Montgomery MD PGY 1 Attending Provider Attestation/Addendum I have discussed and was present for the essential components of the history, physical examination, diagnosis, and treatment plan with the resident. I agree with the patient's care as documented by the resident and amended herein by me. Diego Parks, DO. Patient seen and evaluated this AM. Vital signs stable, patient afebrile overnight, BP 155/100, pulse 123, significant labs include a WBC of 12, CRP 30, Pro-Brian 1.75. Will continue Zosyn at this time, drain placement for the patient's peridiverticular abscess is pending, will likely be performed on 04/17 per interventional radiology. Pain control on board, will continue IVF as well for now. Will continue to monitor closely, patient will likely need colonoscopy once the infection resolves to develop further evaluate diverticulosis severity Although this document has been carefully reviewed, there may still be some phonetic and other typographical errors. These errors are purely grammatical due to imperfections in the software program and should not be construed in any way to compromise the substance of the patient's medical care during this visit.
--- NOTE | 2024-04-16 14:56 | PC.SS ---
SS met with patient regarding his d/c plan.? Pt is alert/oriented.? Pt was admitted for Complicated Sigmoid Diverticulitis.? Pt confirmed demographic and contact information is correct on facesheet.? Pt resides with family.? Pt is employed labor relations director.? Pt ambulates independently without assistance or DME.? Pt is ok with all ADLs.? Patient?s pharmacy of choice is [facility].? Pt named his dtr, Lucrecia William, medical decision maker if he is unable.? Patient?s choice is to return home upon d/c.? Pt does not have an advance directive, SS offered, and pt declined.? Pt states not diabetic and is not on dialysis. D/C plan:? Return home Next of Kin:? Lucrecia Perez, phone# [phone] PCP:? ? Leticia, Address:? Correct on facesheet
--- NOTE | 2024-04-16 15:05 | PC.SS ---
SS called Ivana from patient registration to update patient's facesheet with his dtr, Lucrecia's phone#, per patient's request.
--- NOTE | 2024-04-16 21:26 | PD.IMCONS ---
HPI Data of Consult Requesting Physician: Matt Carey Primary Care Provider: Physician No Primary/Family Consult Narrative Reason for consult: Pain abdomen with perforation sigmoid colon causing pelvic abscess History of present illness: 53 years old male sent to the emergency room by me yesterday after evaluation in the office because of the severe onset abdominal pain and outpatient treatment on his study based on 04/06/2024 CAT scan showing acute left-sided diverticulitis Patient had abdominal distention pinpoint tenderness suggestive of worsening diverticulitis patient sent to the emergency room WBC count was 18.4 hemoglobin hematocrit 15.9 and 46.4 with a platelet count 617,000 CT scan of the abdomen pelvis with contrast showed left-sided diverticulitis with 18 cm fluid collection suggestive of microperforation of the colon with leakage cc:: cc: Matt Carey Review of Systems Review of Systems Systems Reviewed: All systems reviewed, normal except as documented Meds Home Medications and Allergies Home Medications ?Medication ?Instructions ?Recorded ?Confirmed ?Type No Known Home Medications 04/16/24 04/16/24 History Allergies Allergy/AdvReac Type Severity Reaction Status Date / Time No Known Allergies Allergy Verified 04/15/24 17:25 Exam Vital Signs Temp Pulse Resp BP Pulse Ox O2 Del Method 96.7 F L 77 18 126/82 95 Room Air 04/16/24 16:00 04/16/24 16:00 04/16/24 16:00 04/16/24 16:00 04/16/24 16:00 04/16/24 16:00 Constitutional Comments: Alert oriented Routine Respiratory Exam Comments: Normal to auscultation Routine Abdominal Exam Comments: Tender active bowel sounds Results Labs 04/16/24 05:32 04/16/24 05:32 Labs: Short CBC 04/16/24 Range/Units 05:32 WBC 12.3 H D (3.8-10.6) Thou/mm3 Hgb 14.9 (13.5-16.0) g/dL Hct 43.2 (41.0-53.0) % Plt Count 516 H D (140-440) Thou/mm3 BMP 04/16/24 05:32 Sodium 136 Potassium 4.0 Chloride 98 Carbon Dioxide 26.4 BUN 33 H Creatinine 1.2 D Glucose 98 Calcium 9.5 Liver Function 04/16/24 Range/Units 05:32 Total Bilirubin 0.8 (0.3-1.2) mg/dL AST 60 H (0-34) U/L ALT 80 H (10-49) U/L Alkaline Phosphatase 129 H (46-116) U/L Albumin 4.0 (3.5-5.0) gm/dL Assessment and Plan Additional Assessment & Plan Additional Plan: # Acute sigmoid diverticulitis # Pelvic abscess 18 cm fluid collection plan Broad-spectrum IV antibiotics IR drainage of the pelvic abscess Will follow the patient Thank you for the opportunity to participate in the care of this patient
[2024-04-17] VITALS (8 sets, daily range): BP systolic 122–135; BP diastolic 76–86; PULSE 72–91; RESP 16–94; TEMP 36.1–37.2; O2SAT 90–100
[2024-04-17] MEDS: SODIUM CHLORIDE 0.9% 1000 ML 1,000 ML 100 ML IV ×3 (03:04→22:18)
[2024-04-17] MEDS: ONDANSETRON INJ 2 MG/ML INJ 2 ML 4 MG IV ×4 (03:09→22:07)
[2024-04-17] MEDS: HYDROmorphone INJ 2 MG/ML VIAL 1 MG IVP ×4 (03:13→22:11)
[2024-04-17] MEDS: PIPER/TAZO 3.375 GM 50 ML IV ×3 (05:13→22:15)
[2024-04-17 05:47] LABS: Basophils # (Auto) 0.1 Thou/mm3 (0.0-0.2); Basophils % (Auto) 1 % (0-2.5); Eosinophils % (Auto) 0 % (0-10); Hematocrit 38.9 % (41.0-53.0); Hemoglobin 13.2 g/dL (13.5-16.0); Immature Granulocytes % (Auto) 1 % (0-0); Immature Granulocytes Auto 0.12 Thou/mm3 (0.00-0.00); Lymphocytes # (Auto) 1.1 Thou/mm3 (1.0-4.8); Lymphocytes % (Auto) 10 % (10-50); Mean Corpuscular HGB Conc 33.9 g/dl (31.0-37.0); Mean Corpuscular Hemoglobin 29.5 pg (25.0-35.0); Mean Corpuscular Volume 87 fL (80-100); Monocytes # (Auto) 1.2 Thou/mm3 (0.0-0.8); Monocytes % (Auto) 11 % (0-12); Neutrophils % (Auto) 76 % (37-80); Nucleated Red Blood Cell % 0 /100 WBC (0); Platelet Count 522 Thou/mm3 (140-440); RDW Standard Deviation 43.6 fL (35.1-43.9); Red Blood Count 4.47 Miln/mm3 (4.50-5.90); White Blood Count 10.5 Thou/mm3 (3.8-10.6)
[2024-04-17 07:06] LABS: Alanine Aminotransferase 68 U/L (10-49); Albumin, Serum 3.5 gm/dL (3.5-5.0); Albumin/Globulin Ratio 1.3 (1.2-2.2); Alkaline Phosphatase 102 U/L (46-116); Anion Gap 9 (7-16); Aspartate Amino Transferase 58 U/L (0-34); BUN/Creatinine Ratio 26 Ratio (12-20); Bilirubin,Total 0.9 mg/dL (0.3-1.2); Blood Urea Nitrogen 21 mg/dL (9-23); Calcium 8.2 mg/dL (8.3-10.6); Calcium (Corrected) 8.6 mg/dL (8.5-10.1); Carbon Dioxide 26.1 mMol/L (20.0-31.0); Chloride 103 mMol/L (98-107); Creatinine (Component) 0.8 mg/dL (0.6-1.3); Estimated Creatinine Clearance 124.1 mL/min (>60); Globulin 2.8 gm/dL (2.3-3.5); Glucose 115 mg/dL (74-106); Magnesium 1.9 mg/dL (1.6-2.6); Osmolality,Calculated 279 (275-295); Phosphorous 2.8 mg/dL (2.4-5.1); Potassium 3.4 mMol/L (3.4-5.1); Sodium 138 mMol/L (136-145); Total Protein 6.3 gm/dL (5.7-8.2); eGFR > 60 See Note
[2024-04-17] MEDS: PANTOPRAZOLE INJ 40 MG VIAL IVP (08:13)
[2024-04-17] MEDS: POTASSIUM CHL 10 mEq IVPB 10 MEQ/100 ML BAG 100 MEQ IV ×2 (08:44→09:43)
--- NOTE | 2024-04-17 09:07 | ESPR_ITS ---
<Statement entered by Boris Lanier MD - 04/17/24 16:59> Patient pending IR abscess drainage, to be done today per Dr. Hayes. I discussed with and supervised the intern product marketing manager physician involved in the care of this patient. Patient assessment and plan was discussed with entire medicine team, including my attending. I agree with the assessment and plan as documented by intern product marketing manager doctor. Patient care was discussed with my attending physician Dr. Kasey Lanier, PGY-2 Documentation for date of: 04/17/24 Subjective Subjective Interval history: Patient was seen and examined at bedside this AM. No acute exents overnight. Patient currently n.p.o., adequate urine output and mentation is at baseline. Patient endorses improvement of abdominal pain Patient was initially scheduled for IR guided drain placement for his pelvic abscess on 04/16/2024. However synapse was down and procedure was unable to be done. Spoke to Dr. Reid today who said patient is on the list for procedure today. Exam Vital Signs Temp Pulse Resp BP Pulse Ox O2 Del Method 97.9 F 73 19 127/79 92 L Room Air 04/17/24 08:00 04/17/24 08:00 04/17/24 08:00 04/17/24 08:00 04/17/24 08:00 04/17/24 04:00 Narrative Exam Constitutional Alert, oriented x 3 and in mild distress. Middle-age male HEENT Vision grossly intact. Patent nares. Trachea midline Respiratory Chest normal on inspection and clear auscultation bilaterally Cardiovascular S1 and S2 audible, RRR. No murmurs carotid bruit. No gross JVD. Abdominal Soft, painful to palpation in left lower quadrant, mass palpated. Bowel sounds present Genitourinary No bladder tenderness, no flank pain. Normal to palpation Musculoskeletal Extremities tone within normal limits. No LE edema. Neurological CN II - XII grossly intact. Extremity motor and sensation grossly intact. Skin Warm, dry and intact. No apparent lesions. Psychiatric Patient has good affect, is cooperative Objective Labs 04/17/24 04:54 04/17/24 04:54 Labs: Laboratory Results - last 24 hr 04/17/24 04:54 WBC 10.5 RBC 4.47 L Hgb 13.2 L Hct 38.9 L MCV 87 MCH 29.5 MCHC 33.9 RDW Std Deviation 43.6 Plt Count 522 H Neut % (Auto) 76 Lymph % (Auto) 10 [place] % (Auto) 11 Eos % (Auto) 0 Baso % (Auto) 1 Neut # (Auto) 8.0 H Lymph # (Auto) 1.1 [place] # (Auto) 1.2 H Eos # (Auto) 0.0 Baso # (Auto) 0.1 Immature Gran # (Auto) 0.12 H Absolute Nucleated RBC 0.00 Immature Gran % 1 H Nucleated RBC % 0 Sodium 138 Potassium 3.4 D Chloride 103 Carbon Dioxide 26.1 Anion Gap 9 BUN 21 Creatinine 0.8 Estim Creat Clear Calc 124.1 eGFR > 60 BUN/Creatinine Ratio 26 H Glucose 115 H Calculated Osmolality 279 Calcium 8.2 L Corrected Calcium 8.6 Phosphorus 2.8 Magnesium 1.9 Total Bilirubin 0.9 AST 58 H ALT 68 H Alkaline Phosphatase 102 D Total Protein 6.3 Albumin 3.5 D Globulin 2.8 Albumin/Globulin Ratio 1.3 Quality Measures Quality Measures none Assessment & Plan Assessment Current Active Medications: Generic Name Dose Route Start Last Admin Trade Name Freq PRN Reason Stop Dose Admin Acetaminophen 650 mg 04/15/24 22:59 Acetaminophen 325 Mg Tablet PO 05/15/24 22:58 Q6H PRN Fever >101.5 Heparin Sodium (Porcine) 5,000 unit 04/15/24 23:15 04/15/24 23:47 Heparin Sod Inj 5000 Unit/Ml Vial SC 04/29/24 23:14 5,000 unit Q12H ILDEFONSO Administration Hydromorphone HCl 1 mg 04/16/24 13:03 04/17/24 03:13 Hydromorphone Inj 2 Mg/Ml Vial IVP 04/21/24 13:02 1 mg Q4HR PRN Administration PAIN Sodium Chloride 1,000 mls @ 100 mls/hr 04/15/24 23:00 04/17/24 03:04 Ns IV 05/15/24 22:59 100 mls/hr .Q10H ILDEFONSO Administration Piperacillin/Tazobactam/Dextrose 50 mls @ 12.5 mls/hr 04/16/24 06:00 04/17/24 05:13 Zosyn IV 04/23/24 05:59 12.5 mls/hr Q8HR ILDEFONSO Administration Potassium Chloride 10 meq in 100 mls @ 100 mls/hr 04/17/24 07:51 04/17/24 08:44 Kcl Ivpb IV 04/17/24 09:50 100 mls/hr Q1H ILDEFONSO Administration Ondansetron HCl 4 mg 04/15/24 22:59 04/17/24 03:09 Ondansetron Inj 2 Mg/Ml Inj 2 Ml IV 05/15/24 22:58 4 mg Q6H PRN Administration NAUSEA OR VOMITING Protocol Pantoprazole Sodium 40 mg 04/16/24 09:00 04/17/24 08:13 Pantoprazole Inj 40 Mg Vial IVP 05/16/24 08:59 40 mg QDAY ILDEFONSO Administration Plan Mr. William is a 53-year-old male who presented to [facility] emergency department on 04/15/24 with a chief complaints of abdominal pain and distention. Patient was recently seen in the ED on 04/07/2024 diagnosed with diverticulitis and was discharged on oral antibiotics. Patient admitted to hospital for further management of complicated sigmoid diverticulitis. 1. Complicated sigmoid diverticulitis with pelvic abscess 2. Sepsis secondary to perforated diverticulitis Initially presented to ED on 04/07/24 was diagnosed with diverticulitis, was discharged on oral antibiotics had progressive worsening of symptoms. Patient met SIRS criteria patient tachycardic, WBC count 18.4. Patient also had endorgan damage of BENEDICT Abdomen/pelvis CT completed on 04/15/2024 findings include: Bilobed pelvic abscess collection, transverse dimension 18 cm Pro-Brian 1.75, CRP 30.3 Plan: ? CT-guided percutaneous drain placement ordered for pelvic abscess - Continue Zosyn 3.375 g IV Q8 hourly [04/15- - Maintenance fluids IV NS 100 cc/h ? General Surgery, Dr. Chahal consulted. Recommended IR guided drain placement ? GI, Dr. Denton consulted. Appreciate recommendations 3. Acute kidney injury prerenal versus renal?resolving On presentation BUN 33, creatinine 1.7, GFR 48 BUN improved to 21 and CR 0.8 Plan: -Continue IV maintenance fluids NS 100 cc/h -Avoid nephrotoxic agents -Renally dose meds 4. Urinary tract infection UA significant for rare bacteria, WBC 44, RBC 7 nitrite and leukocyte esterase negative. Plan: - Continue IV Zosyn - Urine culture pending 5. Bilateral renal calculi Bilateral renal calculi nonobstructing largest measuring 3 mm in the left kidney, perinephric fat stranding bilaterally Plan: -Consider outpatient workup 6. Mild transaminitis?resolving AST 76 ---> 60 , ALT 92---> 80, alk phos 141 ---> 129 Plan: ? Continue to monitor on CMP 7. Hypochloremic hyponatremia?resolved Continue maintenance fluids, monitor in a.m. NA 136, CL 98 Health maintenance: Disposition: Pending CT-guided percutaneous drain placement by IR. Diet: N.p.o. Lines: pIVs GI Prophylaxis: Pantoprazole IV Thrombo Prophylaxis: None Code status: FULL CODE Plan of care discussed with Attending Dr. Parks and PGY2 Dr. Yannick Montgomery MD PGY 1 Attending Provider Attestation/Addendum I have discussed and was present for the essential components of the history, physical examination, diagnosis, and treatment plan with the resident. I agree with the patient's care as documented by the resident and amended herein by me. Diego Parks, DO. Patient seen and evaluated this AM. Vital signs stable, patient afebrile overnight. He states his pain is much better controlled and he feels better than previous day. WBC 10.5, BMP largely unremarkable. Patient scheduled to have drain placed today by IR, will continue Zosyn for now, will continue to follow cultures however NGTD. General surgery and gastroenterology consulted, appreciate recommendations. Although this document has been carefully reviewed, there may still be some phonetic and other typographical errors. These errors are purely grammatical due to imperfections in the software program and should not be construed in any way to compromise the substance of the patient's medical care during this visit.
--- NOTE | 2024-04-17 09:41 | PC.SS ---
Follow up note: Pt is on IV pain meds still has drain. Pt is on IV antibiotic. Pt will return home upon dc.
--- NOTE | 2024-04-17 13:17 | ESPR_ITS ---
Documentation for date of: 04/17/24 Subjective Subjective Interval history: Abdominal pain improving WBC count improving it is down to 10.5 Exam Vital Signs Temp Pulse Resp BP Pulse Ox O2 Del Method 97.6 F 74 17 122/76 90 L Room Air 04/17/24 12:00 04/17/24 12:00 04/17/24 12:00 04/17/24 12:00 04/17/24 12:00 04/17/24 12:00 Constitutional Comments: Alert oriented Routine Respiratory Exam Comments: Normal to auscultation Routine Abdominal Exam Comments: Tender active bowel sounds Objective Labs 04/17/24 04:54 04/17/24 04:54 Labs: Laboratory Results - last 24 hr 04/17/24 04:54 WBC 10.5 RBC 4.47 L Hgb 13.2 L Hct 38.9 L MCV 87 MCH 29.5 MCHC 33.9 RDW Std Deviation 43.6 Plt Count 522 H Neut % (Auto) 76 Lymph % (Auto) 10 [place] % (Auto) 11 Eos % (Auto) 0 Baso % (Auto) 1 Neut # (Auto) 8.0 H Lymph # (Auto) 1.1 [place] # (Auto) 1.2 H Eos # (Auto) 0.0 Baso # (Auto) 0.1 Immature Gran # (Auto) 0.12 H Absolute Nucleated RBC 0.00 Immature Gran % 1 H Nucleated RBC % 0 Sodium 138 Potassium 3.4 D Chloride 103 Carbon Dioxide 26.1 Anion Gap 9 BUN 21 Creatinine 0.8 Estim Creat Clear Calc 124.1 eGFR > 60 BUN/Creatinine Ratio 26 H Glucose 115 H Calculated Osmolality 279 Calcium 8.2 L Corrected Calcium 8.6 Phosphorus 2.8 Magnesium 1.9 Total Bilirubin 0.9 AST 58 H ALT 68 H Alkaline Phosphatase 102 D Total Protein 6.3 Albumin 3.5 D Globulin 2.8 Albumin/Globulin Ratio 1.3 Impressions Impression: # Complicated acute diverticulitis involving left colon with microperforation causing pelvic abscess Waiting for catheter drainage Assessment & Plan A&P Narrative # Acute sigmoid diverticulitis # Pelvic abscess 18 cm fluid collection plan Broad-spectrum IV antibiotics IR drainage of the pelvic abscess Will follow the patient Thank you for the opportunity to participate in the care of this patient Time Spent With Patient Time: Total time spent is greater than 50% in coordination of care (as documented) at patient's floor/unit and/or counseling patient:
--- NOTE | 2024-04-17 14:07 | PC.NURSE ---
Dr. Montgomery called me to follow up with IR for patient procedure. I called IR and no one is answering. Will continue to contact IR.
[2024-04-18] VITALS (12 sets, daily range): BP systolic 115–153; BP diastolic 71–93; PULSE 57–91; RESP 16–18; TEMP 35.9–37.6; O2SAT 91–97; BMI 28.8
[2024-04-18] MEDS: HYDROmorphone INJ 2 MG/ML VIAL 1 MG IVP ×3 (04:24→21:24)
[2024-04-18] MEDS: ONDANSETRON INJ 2 MG/ML INJ 2 ML 4 MG IV ×3 (04:27→21:24)
--- NOTE | 2024-04-18 04:35 | PC.NURSE ---
accessed pt's chart to assist main RN.
[2024-04-18] MEDS: PIPER/TAZO 3.375 GM 50 ML IV ×3 (05:46→21:14)
[2024-04-18 06:04] LABS: Basophils # (Auto) 0.1 Thou/mm3 (0.0-0.2); Basophils % (Auto) 1 % (0-2.5); Eosinophils # (Auto) 0.1 Thou/mm3 (0.0-0.5); Eosinophils % (Auto) 1 % (0-10); Hematocrit 39.2 % (41.0-53.0); Hemoglobin 12.9 g/dL (13.5-16.0); Immature Granulocytes % (Auto) 2 % (0-0); Immature Granulocytes Auto 0.17 Thou/mm3 (0.00-0.00); Lymphocytes # (Auto) 1.3 Thou/mm3 (1.0-4.8); Lymphocytes % (Auto) 14 % (10-50); Mean Corpuscular HGB Conc 32.9 g/dl (31.0-37.0); Mean Corpuscular Volume 91 fL (80-100); Monocytes # (Auto) 1.2 Thou/mm3 (0.0-0.8); Monocytes % (Auto) 13 % (0-12); Neutrophils # (Auto) 6.6 Thou/mm3 (1.8-7.7); Neutrophils % (Auto) 70 % (37-80); Nucleated Red Blood Cell % 0 /100 WBC (0); Platelet Count 449 Thou/mm3 (140-440); RDW Standard Deviation 46.6 fL (35.1-43.9); White Blood Count 9.4 Thou/mm3 (3.8-10.6)
[2024-04-18 06:19] LABS: Anion Gap 9 (7-16); BUN/Creatinine Ratio 19 Ratio (12-20); Blood Urea Nitrogen 15 mg/dL (9-23); Calcium 8.5 mg/dL (8.3-10.6); Carbon Dioxide 27.6 mMol/L (20.0-31.0); Chloride 102 mMol/L (98-107); Creatinine (Component) 0.8 mg/dL (0.6-1.3); Estimated Creatinine Clearance 124.1 mL/min (>60); Glucose 102 mg/dL (74-106); Magnesium 1.8 mg/dL (1.6-2.6); Osmolality,Calculated 278 (275-295); Phosphorous 2.7 mg/dL (2.4-5.1); Potassium 3.9 mMol/L (3.4-5.1); Sodium 139 mMol/L (136-145); eGFR > 60 See Note
--- NOTE | 2024-04-18 08:00 | XR_ITS ---
Examination: CT-guided percutaneous placement abscess drainage catheter lower abdomen abscess CT abdomen without intravenous contrast Date and time of procedure: April 18, 2024 12:30 PM INDICATIONS: Lower abdominal abscess on CT abdomen pelvis April 06, 2024 abdominal pain and nausea this week Informed consent provided. A timeout was completed verifying correct patient, procedure, site and positioning. Technique: Axial 3 mm sections were obtained for localization of the lower anterior abdominal abscess Appropriate area is marked. The patient's site was prepped and draped in sterile fashion Maximal sterile barrier technique utilized, including hand hygiene Local anesthesia was obtained with 1% lidocaine. Low dose protocols were performed. One or more of the following dose reduction techniques were used; automated exposure control, adjustment of the mA and/or KV according to patient size, use of iterative reconstruction technique. Utilizing CT fluoroscopic guidance 5 Upper Sor[place] catheter placed in the anterior abdominal abscess 0.35 wire guide placed through the catheter followed by dilators and a 12 Upper Sor[place] abscess drainage catheter in proper position under fluoroscopic guidance Fluoroscopy 20 seconds. Patient appears in stable condition during this procedure. At completion of the procedure, the patient is in satisfactory condition. Estimated blood loss 2 cc Impression: Successful CT-guided percutaneous placement abscess drainage catheter lower abdominal abscess 20 cc purulent material removed and sent to the laboratory for culture and sensitivity
--- NOTE | 2024-04-18 09:30 | ESPR_ITS ---
<Statement entered by Boris Lanier MD - 04/18/24 21:06> Patient underwent IR guided colonic abscess drainage, initially yielding 20cc fluid after TRACEY placement more than 250cc drained. Will continue with Zosyn. I discussed with and supervised the recruiting internship physician involved in the care of this patient. Patient assessment and plan was discussed with entire medicine team, including my attending. I agree with the assessment and plan as documented by recruiting internship doctor. Patient care was discussed with my attending physician Dr. Kasey Lanier, PGY-2 Documentation for date of: 04/18/24 Subjective Subjective Interval history: Patient was seen and examined at bedside this AM. No acute exents overnight. Patient currently n.p.o., adequate urine output and mentation is at baseline. Patient endorses improvement of abdominal pain Patient was initially scheduled for IR guided drain placement for his pelvic abscess on 04/16/2024. However synapse was down and procedure was unable to be done. Patient was again rescheduled for IR guided drain placement on 04/17/2024 however procedure was again not done. Today I spoke with the nurse at [facility] supervisor who said the did not see the order for IR drain placement on 04/17/2024. I talked her through Looking at the orders and she was able to located eventually. Patient is again confirmed for IR guided drain placement for his pelvic abscess today. Exam Vital Signs Temp Pulse Resp BP Pulse Ox O2 Del Method 98.5 F 83 16 153/88 H 92 L Room Air 04/18/24 08:00 04/18/24 08:00 04/18/24 08:00 04/18/24 08:00 04/18/24 08:00 04/18/24 08:00 Narrative Exam Constitutional Alert, oriented x 3 and in mild distress. Middle-age male HEENT Vision grossly intact. Patent nares. Trachea midline Respiratory Chest normal on inspection and clear auscultation bilaterally Cardiovascular S1 and S2 audible, RRR. No murmurs carotid bruit. No gross JVD. Abdominal Soft, painful to palpation in left lower quadrant, mass palpated. Bowel sounds present Genitourinary No bladder tenderness, no flank pain. Normal to palpation Musculoskeletal Extremities tone within normal limits. No LE edema. Neurological CN II - XII grossly intact. Extremity motor and sensation grossly intact. Skin Warm, dry and intact. No apparent lesions. Psychiatric Patient has good affect, is cooperative Objective Labs 04/18/24 04:21 04/18/24 04:21 Labs: Laboratory Results - last 24 hr 04/18/24 04:21 WBC 9.4 RBC 4.30 L Hgb 12.9 L Hct 39.2 L MCV 91 MCH 30.0 MCHC 32.9 RDW Std Deviation 46.6 H Plt Count 449 H D Neut % (Auto) 70 Lymph % (Auto) 14 [place] % (Auto) 13 H Eos % (Auto) 1 Baso % (Auto) 1 Neut # (Auto) 6.6 Lymph # (Auto) 1.3 [place] # (Auto) 1.2 H Eos # (Auto) 0.1 Baso # (Auto) 0.1 Immature Gran # (Auto) 0.17 H Absolute Nucleated RBC 0.00 Immature Gran % 2 H Nucleated RBC % 0 Sodium 139 Potassium 3.9 D Chloride 102 Carbon Dioxide 27.6 Anion Gap 9 BUN 15 Creatinine 0.8 Estim Creat Clear Calc 124.1 eGFR > 60 BUN/Creatinine Ratio 19 Glucose 102 Calculated Osmolality 278 Calcium 8.5 Phosphorus 2.7 Magnesium 1.8 Quality Measures Quality Measures none Assessment & Plan Assessment Current Active Medications: Generic Name Dose Route Start Last Admin Trade Name Freq PRN Reason Stop Dose Admin Acetaminophen 650 mg 04/15/24 22:59 Acetaminophen 325 Mg Tablet PO 05/15/24 22:58 Q6H PRN Fever >101.5 Heparin Sodium (Porcine) 5,000 unit 04/15/24 23:15 04/15/24 23:47 Heparin Sod Inj 5000 Unit/Ml Vial SC 04/29/24 23:14 5,000 unit Q12H ILDEFONSO Administration Hydromorphone HCl 1 mg 04/16/24 13:03 04/18/24 04:24 Hydromorphone Inj 2 Mg/Ml Vial IVP 04/21/24 13:02 1 mg Q4HR PRN Administration PAIN Sodium Chloride 1,000 mls @ 100 mls/hr 04/15/24 23:00 04/17/24 22:18 Ns IV 05/15/24 22:59 100 mls/hr .Q10H ILDEFONSO Administration Piperacillin/Tazobactam/Dextrose 50 mls @ 12.5 mls/hr 04/16/24 06:00 04/18/24 05:46 Zosyn IV 04/23/24 05:59 12.5 mls/hr Q8HR ILDEFONSO Administration Ondansetron HCl 4 mg 04/15/24 22:59 04/18/24 04:27 Ondansetron Inj 2 Mg/Ml Inj 2 Ml IV 05/15/24 22:58 4 mg Q6H PRN Administration NAUSEA OR VOMITING Protocol Pantoprazole Sodium 40 mg 04/16/24 09:00 04/17/24 08:13 Pantoprazole Inj 40 Mg Vial IVP 05/16/24 08:59 40 mg QDAY ILDEFONSO Administration Plan Mr. William is a 53-year-old male who presented to [facility] emergency department on 04/15/24 with a chief complaints of abdominal pain and distention. Patient was recently seen in the ED on 04/07/2024 diagnosed with diverticulitis and was discharged on oral antibiotics. Patient admitted to hospital for further management of complicated sigmoid diverticulitis. 1. Complicated sigmoid diverticulitis with pelvic abscess 2. Sepsis secondary to perforated diverticulitis Initially presented to ED on 04/07/24 was diagnosed with diverticulitis, was discharged on oral antibiotics had progressive worsening of symptoms. Patient met SIRS criteria patient tachycardic, WBC count 18.4. Patient also had endorgan damage of BENEDICT Abdomen/pelvis CT completed on 04/15/2024 findings include: Bilobed pelvic abscess collection, transverse dimension 18 cm Pro-Brian 1.75, CRP 30.3 Plan: ? CT-guided percutaneous drain placement ordered for pelvic abscess - Continue Zosyn 3.375 g IV Q8 hourly [04/15- - Maintenance fluids IV NS 100 cc/h ? General Surgery, Dr. Chahal consulted. Recommended IR guided drain placement ? GI, Dr. Denton consulted. Appreciate recommendations 3. Acute kidney injury prerenal versus renal?resolved On presentation BUN 33, creatinine 1.7, GFR 48 BUN improved to 21 and CR 0.8 Plan: -Will discontinue IV maintenance fluids NS 100 cc/h after IR guided drain placement -Avoid nephrotoxic agents -Renally dose meds 4. Urinary tract infection UA significant for rare bacteria, WBC 44, RBC 7 nitrite and leukocyte esterase negative. Plan: - Continue IV Zosyn - Urine culture pending 5. Bilateral renal calculi Bilateral renal calculi nonobstructing largest measuring 3 mm in the left kidney, perinephric fat stranding bilaterally Plan: -Consider outpatient workup 6. Mild transaminitis?resolving AST 76 ---> 60 , ALT 92---> 80, alk phos 141 ---> 129 Plan: ? Continue to monitor on CMP 7. Hypochloremic hyponatremia?resolved Continue maintenance fluids, monitor in a.m. NA 136, CL 98 Health maintenance: Disposition: Pending CT-guided percutaneous drain placement by IR. Diet: N.p.o. Lines: pIVs GI Prophylaxis: Pantoprazole IV Thrombo Prophylaxis: None Code status: FULL CODE Plan of care discussed with Attending Dr. Parks and PGY2 Dr. Yannick Montgomery MD PGY 1 Attending Provider Attestation/Addendum I have discussed and was present for the essential components of the history, physical examination, diagnosis, and treatment plan with the resident. I agree with the patient's care as documented by the resident and amended herein by me. Diego Parks, DO. Patient seen and evaluated this AM. Vital signs stable, patient afebrile overnight, the patient was in a significant amount of pain this morning as the drain was not able to be placed yesterday however the patient will go down this morning for aspiration and drain placement for the intra-abdominal abscess likely secondary to diverticulitis. Blood cultures negative thus far, labs unremarkable today, will continue IVF and pain control and also continue the patient on Zosyn for now. Gastroenterology and surgery consulted, appreciate any additional recommendations. Although this document has been carefully reviewed, there may still be some phonetic and other typographical errors. These errors are purely grammatical due to imperfections in the software program and should not be construed in any way to compromise the substance of the patient's medical care during this visit.
[2024-04-18] MEDS: PANTOPRAZOLE INJ 40 MG VIAL IVP (09:47)
[2024-04-18] MEDS: SODIUM CHLORIDE 0.9% 1000 ML 1,000 ML 100 ML IV (10:35)
[2024-04-18] MEDS: fentaNYL CIT INJ 50 mCg/ML AMP 2ML IVP (13:00)
[2024-04-18] MEDS: LIDOCAINE INJ PF 1% 30 ML VIAL 6 ML EPID (13:16)
--- NOTE | 2024-04-18 21:35 | PD.IMPROG ---
Documentation for date of: 04/18/24 Subjective Subjective Interval history: Patient's status post catheter drainage of the pelvic abscess by IR about 20 cc of purulent fluid was removed Exam Vital Signs Temp Pulse Resp BP Pulse Ox O2 Del Method O2 Flow Rate 97.6 F 86 18 115/71 96 Nasal Cannula 2 04/18/24 20:00 04/18/24 20:00 04/18/24 20:00 04/18/24 20:00 04/18/24 20:00 04/18/24 20:00 04/18/24 16:00 Objective Labs 04/18/24 04:21 04/18/24 04:21 Labs: Laboratory Results - last 24 hr 04/18/24 04:21 WBC 9.4 RBC 4.30 L Hgb 12.9 L Hct 39.2 L MCV 91 MCH 30.0 MCHC 32.9 RDW Std Deviation 46.6 H Plt Count 449 H D Neut % (Auto) 70 Lymph % (Auto) 14 [place] % (Auto) 13 H Eos % (Auto) 1 Baso % (Auto) 1 Neut # (Auto) 6.6 Lymph # (Auto) 1.3 [place] # (Auto) 1.2 H Eos # (Auto) 0.1 Baso # (Auto) 0.1 Immature Gran # (Auto) 0.17 H Absolute Nucleated RBC 0.00 Immature Gran % 2 H Nucleated RBC % 0 Sodium 139 Potassium 3.9 D Chloride 102 Carbon Dioxide 27.6 Anion Gap 9 BUN 15 Creatinine 0.8 Estim Creat Clear Calc 124.1 eGFR > 60 BUN/Creatinine Ratio 19 Glucose 102 Calculated Osmolality 278 Calcium 8.5 Phosphorus 2.7 Magnesium 1.8 Impressions Impression: # Acute left-sided diverticulitis # Pelvic abscess status post IR drainage Continue broad-spectrum antibiotics Assessment & Plan A&P Narrative # Acute sigmoid diverticulitis # Pelvic abscess 18 cm fluid collection plan Broad-spectrum IV antibiotics IR drainage of the pelvic abscess Will follow the patient Thank you for the opportunity to participate in the care of this patient Time Spent With Patient Time: Total time spent is greater than 50% in coordination of care (as documented) at patient's floor/unit and/or counseling patient:
[2024-04-19 04:00] VITALS: BP 140/80; PULSE 55; RESP 18; TEMP 36.8; O2SAT 95
[2024-04-19 05:47] LABS: Basophils # (Auto) 0.1 Thou/mm3 (0.0-0.2); Basophils % (Auto) 1 % (0-2.5); Eosinophils # (Auto) 0.2 Thou/mm3 (0.0-0.5); Eosinophils % (Auto) 2 % (0-10); Hematocrit 35.5 % (41.0-53.0); Hemoglobin 12.1 g/dL (13.5-16.0); Immature Granulocytes % (Auto) 3 % (0-0); Immature Granulocytes Auto 0.25 Thou/mm3 (0.00-0.00); Lymphocytes # (Auto) 1.7 Thou/mm3 (1.0-4.8); Lymphocytes % (Auto) 20 % (10-50); Mean Corpuscular HGB Conc 34.1 g/dl (31.0-37.0); Mean Corpuscular Hemoglobin 30.6 pg (25.0-35.0); Mean Corpuscular Volume 90 fL (80-100); Monocytes # (Auto) 1.1 Thou/mm3 (0.0-0.8); Monocytes % (Auto) 13 % (0-12); Neutrophils # (Auto) 5.2 Thou/mm3 (1.8-7.7); Neutrophils % (Auto) 61 % (37-80); Nucleated Red Blood Cell % 0 /100 WBC (0); Platelet Count 423 Thou/mm3 (140-440); RDW Standard Deviation 44.1 fL (35.1-43.9); Red Blood Count 3.96 Miln/mm3 (4.50-5.90); White Blood Count 8.5 Thou/mm3 (3.8-10.6)
[2024-04-19] MEDS: PIPER/TAZO 3.375 GM 50 ML IV ×3 (06:07→21:43)
[2024-04-19 06:14] LABS: Anion Gap 8 (7-16); BUN/Creatinine Ratio 13 Ratio (12-20); Blood Urea Nitrogen 9 mg/dL (9-23); Calcium 8.1 mg/dL (8.3-10.6); Carbon Dioxide 29.4 mMol/L (20.0-31.0); Chloride 99 mMol/L (98-107); Creatinine (Component) 0.7 mg/dL (0.6-1.3); Estimated Creatinine Clearance 141.9 mL/min (>60); Glucose 89 mg/dL (74-106); Magnesium 1.7 mg/dL (1.6-2.6); Osmolality,Calculated 269 (275-295); Phosphorous 2.8 mg/dL (2.4-5.1); Potassium 3.4 mMol/L (3.4-5.1); Sodium 136 mMol/L (136-145); eGFR > 60 See Note
[2024-04-19 08:00] VITALS: BP 135/85; PULSE 56; RESP 17; TEMP 36.1; O2SAT 95
--- NOTE | 2024-04-19 09:29 | PC.SS ---
Follow up note: On IV antibiotic and IV pain meds. Drains are still draining. Pt will return home upon dc.
[2024-04-19] MEDS: PANTOPRAZOLE INJ 40 MG VIAL IVP (09:43)
[2024-04-19] MEDS: HYDROmorphone INJ 2 MG/ML VIAL 1 MG IVP ×3 (09:54→23:11)
[2024-04-19] MEDS: ONDANSETRON INJ 2 MG/ML INJ 2 ML 4 MG IV ×3 (09:54→23:11)
--- NOTE | 2024-04-19 11:44 | ESPR_ITS ---
<Statement entered by Maxwell Jain MD - 04/26/24 09:15> I reviewed above note and agree with findings and plans. I have also personally examined the patient with medicine team and went over assessment and plan with medical team including internship and resident physician. <Statement entered by Boris Lanier MD - 04/20/24 17:29> I discussed with and supervised the internship physician involved in the care of this patient. Patient assessment and plan was discussed with entire medicine team, including my attending. I agree with the assessment and plan as documented by internship doctor. Patient care was discussed with my attending physician Dr. Susy Lanier, PGY-2 Documentation for date of: 04/19/24 Subjective Subjective Interval history: Patient was seen and examined at bedside this AM. No acute exents overnight. Patient currently tolerating clear liquid diet, adequate urine output and mentation is at baseline. Patient endorses improvement of abdominal pain and diarrhea. Patient had IR guided peritoneal drain placed on 04/18/2024. Drained 655 cc purulent fluid in the past 24 hours Exam Vital Signs Temp Pulse Resp BP Pulse Ox O2 Del Method O2 Flow Rate 97 F 56 L 17 135/85 H 95 Room Air 2 04/19/24 08:00 04/19/24 08:00 04/19/24 08:00 04/19/24 08:00 04/19/24 08:00 04/19/24 08:00 04/18/24 16:00 Narrative Exam Constitutional Alert, oriented x 3 and in mild distress. Middle-age male HEENT Vision grossly intact. Patent nares. Trachea midline Respiratory Chest normal on inspection and clear auscultation bilaterally Cardiovascular S1 and S2 audible, RRR. No murmurs carotid bruit. No gross JVD. Abdominal Soft, tender to palpation in left lower quadrant. Bowel sounds present Genitourinary No bladder tenderness, no flank pain. Normal to palpation Musculoskeletal Extremities tone within normal limits. No LE edema. Neurological CN II - XII grossly intact. Extremity motor and sensation grossly intact. Skin Warm, dry and intact. Drain present left lower quadrant with purulence drainage present in bag. Exit site clean Psychiatric Patient has good affect, is cooperative Objective Labs 04/19/24 04:41 04/19/24 04:41 Labs: Laboratory Results - last 24 hr 04/19/24 04:41 WBC 8.5 RBC 3.96 L Hgb 12.1 L Hct 35.5 L MCV 90 MCH 30.6 MCHC 34.1 RDW Std Deviation 44.1 H Plt Count 423 Neut % (Auto) 61 Lymph % (Auto) 20 [place] % (Auto) 13 H Eos % (Auto) 2 Baso % (Auto) 1 Neut # (Auto) 5.2 Lymph # (Auto) 1.7 [place] # (Auto) 1.1 H Eos # (Auto) 0.2 Baso # (Auto) 0.1 Immature Gran # (Auto) 0.25 H Absolute Nucleated RBC 0.00 Immature Gran % 3 H Nucleated RBC % 0 Sodium 136 Potassium 3.4 D Chloride 99 Carbon Dioxide 29.4 Anion Gap 8 BUN 9 Creatinine 0.7 Estim Creat Clear Calc 141.9 eGFR > 60 BUN/Creatinine Ratio 13 Glucose 89 Calculated Osmolality 269 L Calcium 8.1 L Phosphorus 2.8 Magnesium 1.7 Quality Measures Quality Measures none Assessment & Plan Assessment Current Active Medications: Generic Name Dose Route Start Last Admin Trade Name Freq PRN Reason Stop Dose Admin Acetaminophen 650 mg 04/15/24 22:59 Acetaminophen 325 Mg Tablet PO 05/15/24 22:58 Q6H PRN Fever >101.5 Heparin Sodium (Porcine) 5,000 unit 04/15/24 23:15 04/15/24 23:47 Heparin Sod Inj 5000 Unit/Ml Vial SC 04/29/24 23:14 5,000 unit Q12H ILDEFONSO Administration Hydromorphone HCl 1 mg 04/16/24 13:03 04/19/24 09:54 Hydromorphone Inj 2 Mg/Ml Vial IVP 04/21/24 13:02 1 mg Q4HR PRN Administration PAIN Piperacillin/Tazobactam/Dextrose 50 mls @ 12.5 mls/hr 04/16/24 06:00 04/19/24 06:07 Zosyn IV 04/23/24 05:59 12.5 mls/hr Q8HR ILDEFONSO Administration Ondansetron HCl 4 mg 04/15/24 22:59 04/19/24 09:54 Ondansetron Inj 2 Mg/Ml Inj 2 Ml IV 05/15/24 22:58 4 mg Q6H PRN Administration NAUSEA OR VOMITING Protocol Pantoprazole Sodium 40 mg 04/16/24 09:00 04/19/24 09:43 Pantoprazole Inj 40 Mg Vial IVP 05/16/24 08:59 40 mg QDAY ILDEFONSO Administration Plan Mr. William is a 53-year-old male who presented to [facility] emergency department on 04/15/24 with a chief complaints of abdominal pain and distention. Patient was recently seen in the ED on 04/07/2024 diagnosed with diverticulitis and was discharged on oral antibiotics. Patient admitted to hospital for further management of complicated sigmoid diverticulitis. 1. Complicated sigmoid diverticulitis with pelvic abscess s/p peritoneal drain 04/18/2024 2. Sepsis secondary to perforated diverticulitis Initially presented to ED on 04/07/24 was diagnosed with diverticulitis, was discharged on oral antibiotics had progressive worsening of symptoms. Patient met SIRS criteria patient tachycardic, WBC count 18.4. Patient also had endorgan damage of BENEDICT Abdomen/pelvis CT completed on 04/15/2024 findings include: Bilobed pelvic abscess collection, transverse dimension 18 cm Pro-Brian 1.75, CRP 30.3 Patient had IR guided peritoneal drain placed on 04/18/2024. Drained 655 cc purulent fluid in the past 24 hours Plan: ? Clear liquid diet. Graduate as tolerated - Continue Zosyn 3.375 g IV Q8 hourly [04/15- ? General Surgery, Dr. Chahal consulted. Appreciate recommendations ? GI, Dr. Denton consulted. Appreciate recommendations 3. Acute kidney injury prerenal versus renal?resolved On presentation BUN 33, creatinine 1.7, GFR 48 BUN improved to 21 and CR 0.8 Plan: -Will discontinue IV maintenance fluids NS 100 cc/h after IR guided drain placement -Avoid nephrotoxic agents -Renally dose meds 4. Urinary tract infection - resolving UA significant for rare bacteria, WBC 44, RBC 7 nitrite and leukocyte esterase negative. Plan: - Continue IV Zosyn - Urine culture pending 5. Bilateral renal calculi Bilateral renal calculi nonobstructing largest measuring 3 mm in the left kidney, perinephric fat stranding bilaterally Plan: -Consider outpatient workup 6. Mild transaminitis?resolving AST 76 ---> 60 , ALT 92---> 80, alk phos 141 ---> 129 Plan: ? Continue to monitor on CMP 7. Hypochloremic hyponatremia?resolved Continue maintenance fluids, monitor in a.m. NA 136, CL 98 Health maintenance: Disposition: Drainage of pelvic abscess Diet: Clear liquid diet Lines: pIVs GI Prophylaxis: Pantoprazole IV Thrombo Prophylaxis: None Code status: FULL CODE Plan of care discussed with Attending Dr. Jain and PGY2 Dr. Yannick Montgomery MD PGY 1
[2024-04-19] MEDS: HEPARIN SOD INJ 5000 UNIT/ML VIAL SC ×2 (11:45→23:16)
[2024-04-19 12:00] VITALS: BP 134/83; PULSE 58; RESP 17; TEMP 36.1; O2SAT 95
[2024-04-19 16:00] VITALS: BP 130/78; PULSE 58; RESP 16; TEMP 36.6; O2SAT 95
[2024-04-19 16:17] VITALS: PULSE 85; RESP 16; RESP 95
[2024-04-19 20:00] VITALS: BP 131/82; PULSE 60; RESP 16; TEMP 36.2; O2SAT 98
--- NOTE | 2024-04-19 20:40 | ESPR_ITS ---
Documentation for date of: 04/19/24 Subjective Subjective Interval history: Patient evaluated WBC count trending downwards to 8.5 patient status post placement of a IR drainage catheter Culture and sensitivity has been sent Exam Vital Signs Temp Pulse Resp BP Pulse Ox O2 Del Method O2 Flow Rate 98 F 85 16 130/78 95 Room Air 2 04/19/24 16:00 04/19/24 16:17 04/19/24 16:17 04/19/24 16:00 04/19/24 16:00 04/19/24 16:00 04/18/24 16:00 Objective Labs 04/19/24 04:41 04/19/24 04:41 Labs: Laboratory Results - last 24 hr 04/19/24 04:41 WBC 8.5 RBC 3.96 L Hgb 12.1 L Hct 35.5 L MCV 90 MCH 30.6 MCHC 34.1 RDW Std Deviation 44.1 H Plt Count 423 Neut % (Auto) 61 Lymph % (Auto) 20 [place] % (Auto) 13 H Eos % (Auto) 2 Baso % (Auto) 1 Neut # (Auto) 5.2 Lymph # (Auto) 1.7 [place] # (Auto) 1.1 H Eos # (Auto) 0.2 Baso # (Auto) 0.1 Immature Gran # (Auto) 0.25 H Absolute Nucleated RBC 0.00 Immature Gran % 3 H Nucleated RBC % 0 Sodium 136 Potassium 3.4 D Chloride 99 Carbon Dioxide 29.4 Anion Gap 8 BUN 9 Creatinine 0.7 Estim Creat Clear Calc 141.9 eGFR > 60 BUN/Creatinine Ratio 13 Glucose 89 Calculated Osmolality 269 L Calcium 8.1 L Phosphorus 2.8 Magnesium 1.7 Impressions Impression: # Acute sigmoid diverticulitis with microperforation leading to pelvic abscess Continue present treatment Assessment & Plan A&P Narrative # Acute sigmoid diverticulitis # Pelvic abscess 18 cm fluid collection plan Broad-spectrum IV antibiotics IR drainage of the pelvic abscess Will follow the patient Thank you for the opportunity to participate in the care of this patient Time Spent With Patient Time: Total time spent is greater than 50% in coordination of care (as documented) at patient's floor/unit and/or counseling patient:
[2024-04-20] VITALS: BP 140/87; PULSE 65; RESP 16; TEMP 36.2; O2SAT 91
[2024-04-20] MEDS: HYDROmorphone INJ 2 MG/ML VIAL 0.5 MG IVP (00:22)
[2024-04-20] MEDS: HYDROmorphone INJ 2 MG/ML VIAL 1 MG IVP ×4 (03:25→22:22)
[2024-04-20 04:00] VITALS: BP 147/93; PULSE 60; RESP 20; TEMP 36.2; O2SAT 93
[2024-04-20] MEDS: PIPER/TAZO 3.375 GM 50 ML IV ×3 (05:33→21:04)
[2024-04-20 05:45] LABS: Basophils # (Auto) 0.1 Thou/mm3 (0.0-0.2); Basophils % (Auto) 1 % (0-2.5); Eosinophils # (Auto) 0.1 Thou/mm3 (0.0-0.5); Eosinophils % (Auto) 1 % (0-10); Hematocrit 37.3 % (41.0-53.0); Hemoglobin 12.7 g/dL (13.5-16.0); Immature Granulocytes % (Auto) 2 % (0-0); Immature Granulocytes Auto 0.24 Thou/mm3 (0.00-0.00); Lymphocytes # (Auto) 1.1 Thou/mm3 (1.0-4.8); Lymphocytes % (Auto) 11 % (10-50); Mean Corpuscular Hemoglobin 29.8 pg (25.0-35.0); Mean Corpuscular Volume 88 fL (80-100); Monocytes % (Auto) 10 % (0-12); Neutrophils # (Auto) 7.8 Thou/mm3 (1.8-7.7); Neutrophils % (Auto) 76 % (37-80); Nucleated Red Blood Cell % 0 /100 WBC (0); Platelet Count 429 Thou/mm3 (140-440); Red Blood Count 4.26 Miln/mm3 (4.50-5.90); White Blood Count 10.3 Thou/mm3 (3.8-10.6)
[2024-04-20 06:09] LABS: Anion Gap 6 (7-16); BUN/Creatinine Ratio 10 Ratio (12-20); Blood Urea Nitrogen 11 mg/dL (9-23); Calcium 8.3 mg/dL (8.3-10.6); Carbon Dioxide 30.7 mMol/L (20.0-31.0); Chloride 96 mMol/L (98-107); Creatinine (Component) 1.1 mg/dL (0.6-1.3); Estimated Creatinine Clearance 90.3 mL/min (>60); Glucose 104 mg/dL (74-106); Magnesium 1.7 mg/dL (1.6-2.6); Osmolality,Calculated 265 (275-295); Potassium 3.5 mMol/L (3.4-5.1); Sodium 133 mMol/L (136-145); eGFR > 60 See Note
[2024-04-20] MEDS: ONDANSETRON INJ 2 MG/ML INJ 2 ML 4 MG IV (07:42)
[2024-04-20 07:50] VITALS: BP 161/92; PULSE 104; RESP 20; TEMP 36.2; O2SAT 97
[2024-04-20] MEDS: PANTOPRAZOLE INJ 40 MG VIAL IVP (09:53)
[2024-04-20 11:06] VITALS: BMI 28.8
[2024-04-20 12:00] VITALS: BP 164/92; PULSE 94; RESP 20; TEMP 36.2; O2SAT 97
[2024-04-20] MEDS: HYDROcodone/APAP 5/325 TABLET 1 TAB PO (13:28)
--- NOTE | 2024-04-20 13:59 | ESPR_ITS ---
Documentation for date of: 04/20/24 Subjective Subjective Interval history: Patient evaluated still has abdominal pain IR catheter drainage in place Exam Vital Signs Temp Pulse Resp BP Pulse Ox O2 Del Method O2 Flow Rate 97.2 F 94 20 164/92 H 97 Room Air 2 04/20/24 12:00 04/20/24 12:00 04/20/24 12:00 04/20/24 12:00 04/20/24 12:00 04/20/24 12:00 04/18/24 16:00 Objective Labs 04/20/24 04:42 04/20/24 04:42 Labs: Laboratory Results - last 24 hr 04/20/24 04:42 WBC 10.3 RBC 4.26 L Hgb 12.7 L Hct 37.3 L MCV 88 MCH 29.8 MCHC 34.0 RDW Std Deviation 42.0 Plt Count 429 Neut % (Auto) 76 Lymph % (Auto) 11 [place] % (Auto) 10 Eos % (Auto) 1 Baso % (Auto) 1 Neut # (Auto) 7.8 H Lymph # (Auto) 1.1 [place] # (Auto) 1.0 H Eos # (Auto) 0.1 Baso # (Auto) 0.1 Immature Gran # (Auto) 0.24 H Absolute Nucleated RBC 0.00 Immature Gran % 2 H Nucleated RBC % 0 Sodium 133 L Potassium 3.5 Chloride 96 L Carbon Dioxide 30.7 Anion Gap 6 L BUN 11 Creatinine 1.1 Estim Creat Clear Calc 90.3 eGFR > 60 BUN/Creatinine Ratio 10 L Glucose 104 Calculated Osmolality 265 L Calcium 8.3 Phosphorus 4.0 Magnesium 1.7 Impressions Impression: # Acute left-sided diverticulitis # Pelvic abscess requiring IR drainage Continue current management Assessment & Plan A&P Narrative # Acute sigmoid diverticulitis # Pelvic abscess 18 cm fluid collection plan Broad-spectrum IV antibiotics IR drainage of the pelvic abscess Will follow the patient Thank you for the opportunity to participate in the care of this patient Time Spent With Patient Time: Total time spent is greater than 50% in coordination of care (as documented) at patient's floor/unit and/or counseling patient:
[2024-04-20] MEDS: POLYETHYLENE GLYCOL 17 GM PACKET PO ×2 (14:54→21:04)
[2024-04-20 15:43] VITALS: BP 120/96; PULSE 88; RESP 20; TEMP 36.2; O2SAT 97
--- NOTE | 2024-04-20 19:51 | ESPR_ITS ---
<Statement entered by Maxwell Jain MD - 04/29/24 15:01> I reviewed above note and agree with findings and plans. I have also personally examined the patient with medicine team and went over assessment and plan with medical team including geotechnical intern and resident physician. Documentation for date of: 04/20/24 Subjective Subjective Interval history: Patient still complaining of abdominal pain, started patient on [place] with Dilaudid in between breakthrough for pain. Patient had close to 250 cc drainage over last 24 hours. Labs and vitals within normal limits. Patient with no bowel movements, started on regimen. Exam Vital Signs Temp Pulse Resp BP Pulse Ox O2 Del Method O2 Flow Rate 97.2 F 88 20 120/96 H 97 Room Air 2 04/20/24 15:43 04/20/24 15:43 04/20/24 15:43 04/20/24 15:43 04/20/24 15:43 04/20/24 15:43 04/18/24 16:00 Narrative Exam Constitutional Alert, oriented x 3 and in mild distress. Middle-age male HEENT Vision grossly intact. Patent nares. Trachea midline Respiratory Chest normal on inspection and clear auscultation bilaterally Cardiovascular S1 and S2 audible, RRR. No murmurs carotid bruit. No gross JVD. Abdominal Soft, tender to palpation in left lower quadrant. Bowel sounds present Genitourinary No bladder tenderness, no flank pain. Normal to palpation Musculoskeletal Extremities tone within normal limits. No LE edema. Neurological CN II - XII grossly intact. Extremity motor and sensation grossly intact. Skin Warm, dry and intact. Drain present left lower quadrant with purulence drainage present in bag. Exit site clean Psychiatric Patient has good affect, is cooperative Objective Labs 04/20/24 04:42 04/20/24 04:42 Labs: Laboratory Results - last 24 hr 04/20/24 04:42 WBC 10.3 RBC 4.26 L Hgb 12.7 L Hct 37.3 L MCV 88 MCH 29.8 MCHC 34.0 RDW Std Deviation 42.0 Plt Count 429 Neut % (Auto) 76 Lymph % (Auto) 11 [place] % (Auto) 10 Eos % (Auto) 1 Baso % (Auto) 1 Neut # (Auto) 7.8 H Lymph # (Auto) 1.1 [place] # (Auto) 1.0 H Eos # (Auto) 0.1 Baso # (Auto) 0.1 Immature Gran # (Auto) 0.24 H Absolute Nucleated RBC 0.00 Immature Gran % 2 H Nucleated RBC % 0 Sodium 133 L Potassium 3.5 Chloride 96 L Carbon Dioxide 30.7 Anion Gap 6 L BUN 11 Creatinine 1.1 Estim Creat Clear Calc 90.3 eGFR > 60 BUN/Creatinine Ratio 10 L Glucose 104 Calculated Osmolality 265 L Calcium 8.3 Phosphorus 4.0 Magnesium 1.7 Quality Measures Quality Measures none Assessment & Plan Assessment Current Active Medications: Generic Name Dose Route Start Last Admin Trade Name Freq PRN Reason Stop Dose Admin Acetaminophen 650 mg 04/15/24 22:59 Acetaminophen 325 Mg Tablet PO 05/15/24 22:58 Q6H PRN Fever >101.5 Hydrocodone Bitart/Acetaminophen 1 tab 04/20/24 12:25 04/20/24 13:28 Hydrocodone/Apap 5/325 Tablet PO 04/25/24 12:23 1 tab Q8HR PRN Administration PAIN SCALE 4-6 (Moderate Heparin Sodium (Porcine) 5,000 unit 04/20/24 21:00 Heparin Sod Inj 5000 Unit/Ml Vial SC 04/29/24 23:14 Q12HR ILDEFONSO Hydromorphone HCl 1 mg 04/20/24 13:20 04/20/24 18:05 Hydromorphone Inj 2 Mg/Ml Vial IVP 04/21/24 13:02 1 mg Q4HR PRN Administration PAIN SCALE 7-10 (Severe Piperacillin/Tazobactam/Dextrose 50 mls @ 12.5 mls/hr 04/16/24 06:00 04/20/24 14:49 Zosyn IV 04/23/24 05:59 12.5 mls/hr Q8HR ILDEFONSO Administration Naloxone HCl 2 mg 04/19/24 23:53 Naloxone Inj 1 Mg/Ml Syringe 2 Ml IM 05/19/24 23:52 Q3M PRN OPIATE REVERSAL Ondansetron HCl 4 mg 04/15/24 22:59 04/20/24 07:42 Ondansetron Inj 2 Mg/Ml Inj 2 Ml IV 05/15/24 22:58 4 mg Q6H PRN Administration NAUSEA OR VOMITING Protocol Pantoprazole Sodium 40 mg 04/16/24 09:00 04/20/24 09:53 Pantoprazole Inj 40 Mg Vial IVP 05/16/24 08:59 40 mg QDAY ILDEFONSO Administration Polyethylene Glycol 17 gm 04/20/24 14:45 04/20/24 14:54 Polyethylene Glycol 17 Gm Packet PO 05/20/24 14:44 17 gm BID ILDEFONSO Administration Plan Mr. William is a 53-year-old male who presented to [facility] emergency department on 04/15/24 with a chief complaints of abdominal pain and distention. Patient was recently seen in the ED on 04/07/2024 diagnosed with diverticulitis and was discharged on oral antibiotics. Patient admitted to hospital for further management of complicated sigmoid diverticulitis. 1. Complicated sigmoid diverticulitis with pelvic abscess s/p peritoneal drain 04/18/2024 2. Sepsis secondary to perforated diverticulitis Initially presented to ED on 04/07/24 was diagnosed with diverticulitis, was discharged on oral antibiotics had progressive worsening of symptoms. Patient met SIRS criteria patient tachycardic, WBC count 18.4. Patient also had endorgan damage of BENEDICT Abdomen/pelvis CT completed on 04/15/2024 findings include: Bilobed pelvic abscess collection, transverse dimension 18 cm Pro-Brian 1.75, CRP 30.3 Patient had IR guided peritoneal drain placed on 04/18/2024. Drained 655 cc purulent fluid in the past 24 hours Plan: ? Clear liquid diet. Graduate as tolerated - Continue Zosyn 3.375 g IV Q8 hourly [04/15- ? General Surgery, Dr. Chahal consulted. Appreciate recommendations ? GI, Dr. Denton consulted. Appreciate recommendations 3. Acute kidney injury prerenal versus renal?resolved On presentation BUN 33, creatinine 1.7, GFR 48 BUN improved to 21 and CR 0.8 Plan: -Will discontinue IV maintenance fluids NS 100 cc/h after IR guided drain placement -Avoid nephrotoxic agents -Renally dose meds 4. Urinary tract infection - resolving UA significant for rare bacteria, WBC 44, RBC 7 nitrite and leukocyte esterase negative. Plan: - Continue IV Zosyn - Urine culture pending 5. Bilateral renal calculi Bilateral renal calculi nonobstructing largest measuring 3 mm in the left kidney, perinephric fat stranding bilaterally Plan: -Consider outpatient workup 6. Mild transaminitis?resolving AST 76 ---> 60 , ALT 92---> 80, alk phos 141 ---> 129 Plan: ? Continue to monitor on CMP 7. Hypochloremic hyponatremia?resolved Continue maintenance fluids, monitor in a.m. NA 136, CL 98 Health maintenance: Disposition: Drainage of pelvic abscess Diet: Clear liquid diet Lines: pIVs GI Prophylaxis: Pantoprazole IV Thrombo Prophylaxis: None Code status: FULL CODE This patient care was discussed with my attending Dr. Susy Lanier MD PGY-2 Disclaimer: Minor errors in eradicator may be present since this note was dictated by speech recognition software.
[2024-04-20 20:00] VITALS: BP 127/74; PULSE 85; RESP 20; TEMP 36.2; O2SAT 98
[2024-04-20] MEDS: HEPARIN SOD INJ 5000 UNIT/ML VIAL SC (21:04)
[2024-04-21] VITALS (7 sets, daily range): BP systolic 125–162; BP diastolic 63–98; PULSE 66–89; RESP 16–18; TEMP 36.1–36.4; O2SAT 93–98
[2024-04-21] MEDS: HYDROmorphone INJ 2 MG/ML VIAL 1 MG IVP ×2 (05:30→09:30)
[2024-04-21] MEDS: PIPER/TAZO 3.375 GM 50 ML IV ×3 (05:30→21:15)
--- NOTE | 2024-04-21 07:48 | XR_ITS ---
Examination: CT abdomen and pelvis without contrast. Coronal 3-D reconstructions. Sagittal 2-D reconstructions. Date and time of exam:April 21, 2024 10:18 AM Comparison April 18, 2024 Indications: History diverticulitis, CT-guided placement percutaneous drainage tube April 18, 2024 CTDI: vol (mGy): 9.74 DLP: (mGycm): 565 Technique: Axial images of the abdomen have been obtained, 3 mm slice thickness Intravenous contrast material has not been administered. Low dose protocols were performed. One or more of the following dose reduction techniques were used; automated exposure control, adjustment of the mA and/or KV according to patient size, use of iterative reconstruction technique. Findings: Atelectasis versus pneumonia right base Minimal bilateral pleural fluid Fatty infiltration throughout the liver Spleen is not enlarged No pancreatic or adrenal mass 6 mm left renal calculus 4 mm left renal calculus Mild left hydronephrosis Marked decrease in size of anterior abdominal wall abscess Consider removing the drainage catheter Acute diverticulitis However new abscess in the pelvis posterior to the urinary bladder, 7 x 6.8 cm Impression: Marked decrease in size of the anterior abdominal wall abscess, recommend removing the abscess drainage catheter However, new abscess in the posterior pelvis 7.0 x 6.8 cm, this is amenable to catheter drainage placement CT-guided
[2024-04-21 08:31] LABS: Basophils # (Auto) 0.1 Thou/mm3 (0.0-0.2); Basophils % (Auto) 0 % (0-2.5); Eosinophils # (Auto) 0.1 Thou/mm3 (0.0-0.5); Eosinophils % (Auto) 1 % (0-10); Hematocrit 43.5 % (41.0-53.0); Immature Granulocytes % (Auto) 2 % (0-0); Immature Granulocytes Auto 0.29 Thou/mm3 (0.00-0.00); Lymphocytes # (Auto) 1.2 Thou/mm3 (1.0-4.8); Lymphocytes % (Auto) 9 % (10-50); Mean Corpuscular HGB Conc 34.5 g/dl (31.0-37.0); Mean Corpuscular Hemoglobin 29.9 pg (25.0-35.0); Mean Corpuscular Volume 87 fL (80-100); Monocytes # (Auto) 0.8 Thou/mm3 (0.0-0.8); Monocytes % (Auto) 6 % (0-12); Neutrophils % (Auto) 82 % (37-80); Nucleated Red Blood Cell % 0 /100 WBC (0); Platelet Count 503 Thou/mm3 (140-440); RDW Standard Deviation 40.9 fL (35.1-43.9); Red Blood Count 5.01 Miln/mm3 (4.50-5.90); White Blood Count 13.4 Thou/mm3 (3.8-10.6)
[2024-04-21 08:43] LABS: Anion Gap 9 (7-16); BUN/Creatinine Ratio 8 Ratio (12-20); Blood Urea Nitrogen 11 mg/dL (9-23); Calcium 8.5 mg/dL (8.3-10.6); Carbon Dioxide 30.2 mMol/L (20.0-31.0); Chloride 94 mMol/L (98-107); Creatinine (Component) 1.3 mg/dL (0.6-1.3); Estimated Creatinine Clearance 76.4 mL/min (>60); Glucose 96 mg/dL (74-106); Osmolality,Calculated 265 (275-295); Potassium 3.5 mMol/L (3.4-5.1); Sodium 133 mMol/L (136-145); eGFR > 60 See Note
[2024-04-21] MEDS: PANTOPRAZOLE INJ 40 MG VIAL IVP (09:18)
[2024-04-21] MEDS: POLYETHYLENE GLYCOL 17 GM PACKET PO ×2 (09:18→20:42)
[2024-04-21] MEDS: HEPARIN SOD INJ 5000 UNIT/ML VIAL SC ×2 (09:18→20:37)
--- NOTE | 2024-04-21 12:34 | PC.NURSE ---
PATIENTS ABDOMINAL DRAIN REMOVED BY DR. PISANO. PATIENT WILL HAVE ANOTHER DRAIN INSERTED TOMORROW FOR AN ABSCESS BEHIND THE BLADDER A PELVIS DRAIN. WILL CONTINUE TO MONITOR PATIENT.
--- NOTE | 2024-04-21 12:49 | PD.SURPROG ---
Documentation for date of: 04/21/24 Subjective Subjective Brief History: 53M presenting with abdominal pain. Patient reports pain began 10 days ago in the left lower quadrant, he denies any history of similar pain. Pain is associated with loose stools, subjective fever and chills. Patient first presented to the ER when the pain began and at that time had findings of acute diverticulitis but no abscess and he was discharged home with antibiotics, however yesterday he was seen by GI and advised to seek care in ER. While in the ER workup showed WBC 18, and CT indicative of a pelvic abscess Patient reports he has never had a colonoscopy, states that he was feeling very well before pain began 10 days ago. 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 Family history: No known CRC Narrative: Pain controlled, no nausea, tolerating diet, CT today showed previous abscess was drained but there is now a new pelvic abscess that is amenable to drainage Exam Vital Signs Temp Pulse Resp BP Pulse Ox O2 Del Method O2 Flow Rate 97.6 F 66 18 152/96 H 98 Room Air 2 04/21/24 11:54 04/21/24 11:54 04/21/24 11:54 04/21/24 11:54 04/21/24 11:54 04/21/24 11:54 04/18/24 16:00 Constitutional Constitutional: no acute distress Routine Respiratory Exam Respiratory: Present no resp distress Routine Abdominal Exam Abdominal: Present soft; Absent tenderness or distended Results Results: Laboratory Laboratory results: results reviewed Results: Imaging CT scan - abdomen: report reviewed and image reviewed Assessment & Plan Plan 53M otherwise healthy presenting with first episode of acute diverticulitis with abscess, s/p percutaneous drain / which has resolved that abscess but pt will now require placement of a pelvic catheter Drain removed today Percutaneous drainage tomorrow
--- NOTE | 2024-04-21 13:45 | PC.NURSE ---
Had to call Dr. Chahal patient had no pain meds on board. [place] was put on schedule with Tramadol. Patient upset they took the dilaudid off med rec. I educated the patient on pain medications. Will continue to monitor patient.
--- NOTE | 2024-04-21 14:18 | PD.IMPROG ---
Documentation for date of: 04/21/24 Subjective Subjective Interval history: New abscess under the urinary bladder in the pelvis 7 x 7 cm Patient will need a new catheter drainage tomorrow The old abscess has decreased in size and the catheter has been pulled Exam Vital Signs Temp Pulse Resp BP Pulse Ox O2 Del Method O2 Flow Rate 97.6 F 66 18 152/96 H 98 Room Air 2 04/21/24 11:54 04/21/24 11:54 04/21/24 11:54 04/21/24 11:54 04/21/24 11:54 04/21/24 11:54 04/18/24 16:00 Objective Labs 04/21/24 08:10 04/21/24 08:10 Labs: Laboratory Results - last 24 hr 04/21/24 08:10 WBC 13.4 H RBC 5.01 Hgb 15.0 D Hct 43.5 MCV 87 MCH 29.9 MCHC 34.5 RDW Std Deviation 40.9 Plt Count 503 H D Neut % (Auto) 82 H Lymph % (Auto) 9 L [place] % (Auto) 6 Eos % (Auto) 1 Baso % (Auto) 0 Neut # (Auto) 11.0 H Lymph # (Auto) 1.2 [place] # (Auto) 0.8 Eos # (Auto) 0.1 Baso # (Auto) 0.1 Immature Gran # (Auto) 0.29 H Absolute Nucleated RBC 0.00 Immature Gran % 2 H Nucleated RBC % 0 Sodium 133 L Potassium 3.5 Chloride 94 L Carbon Dioxide 30.2 Anion Gap 9 BUN 11 Creatinine 1.3 Estim Creat Clear Calc 76.4 eGFR > 60 BUN/Creatinine Ratio 8 L Glucose 96 Calculated Osmolality 265 L Calcium 8.5 Impressions Impression: # New pelvic abscess underneath the bladder IR drainage tomorrow Assessment & Plan A&P Narrative # Acute sigmoid diverticulitis # Pelvic abscess 18 cm fluid collection plan Broad-spectrum IV antibiotics IR drainage of the pelvic abscess Will follow the patient Thank you for the opportunity to participate in the care of this patient Time Spent With Patient Time: Total time spent is greater than 50% in coordination of care (as documented) at patient's floor/unit and/or counseling patient:
--- NOTE | 2024-04-21 14:22 | ESPR_ITS ---
<Statement entered by Maxwell Jain MD - 04/29/24 15:02> I reviewed above note and agree with findings and plans. I have also personally examined the patient with medicine team and went over assessment and plan with medical team including web marketing intern and resident physician. <Statement entered by Darrell Mcpherson MD - 04/22/24 16:30> Agree with plan and examination finding on the note below. Patient seen and examined at bedside today. Labs and imaging reviewed. Patient care discussed with my attending Dr. Jain and co-resident . Documentation for date of: 04/21/24 Subjective Subjective Interval history: LPatient was seen and examined at bedside this AM. No acute exents overnight. Patient tolerating diet, adequate urine output and mentation is at baseline. Patient still complains of abdominal pain. Peritoneal catheter drained 30 cc of purulent fluid in past 24 hours. Repeat abdomen/pelvis CT ordered which showed resolution of initial abscess and a new 7 x 6.8 cm posterior pelvic abscess amenable to drainage. General surgery, Dr. Chahal consulted. She will remove current peritoneal drain and advise for repeat drain placement tomorrow. Exam Vital Signs Temp Pulse Resp BP Pulse Ox O2 Del Method O2 Flow Rate 97.6 F 66 18 152/96 H 98 Room Air 2 04/21/24 11:54 04/21/24 11:54 04/21/24 11:54 04/21/24 11:54 04/21/24 11:54 04/21/24 11:54 04/18/24 16:00 Narrative Exam Constitutional Alert, oriented x 3 and in mild distress. Middle-age male HEENT Vision grossly intact. Patent nares. Trachea midline Respiratory Chest normal on inspection and clear auscultation bilaterally Cardiovascular S1 and S2 audible, RRR. No murmurs carotid bruit. No gross JVD. Abdominal Soft, tender to palpation in left lower quadrant. Bowel sounds present Genitourinary No bladder tenderness, no flank pain. Normal to palpation Musculoskeletal Extremities tone within normal limits. No LE edema. Neurological CN II - XII grossly intact. Extremity motor and sensation grossly intact. Skin Warm, dry and intact. Drain present left lower quadrant with purulence drainage present in bag. Exit site clean Psychiatric Patient has good affect, is cooperative Objective Labs 04/21/24 08:10 04/21/24 08:10 Labs: Laboratory Results - last 24 hr 04/21/24 08:10 WBC 13.4 H RBC 5.01 Hgb 15.0 D Hct 43.5 MCV 87 MCH 29.9 MCHC 34.5 RDW Std Deviation 40.9 Plt Count 503 H D Neut % (Auto) 82 H Lymph % (Auto) 9 L [place] % (Auto) 6 Eos % (Auto) 1 Baso % (Auto) 0 Neut # (Auto) 11.0 H Lymph # (Auto) 1.2 [place] # (Auto) 0.8 Eos # (Auto) 0.1 Baso # (Auto) 0.1 Immature Gran # (Auto) 0.29 H Absolute Nucleated RBC 0.00 Immature Gran % 2 H Nucleated RBC % 0 Sodium 133 L Potassium 3.5 Chloride 94 L Carbon Dioxide 30.2 Anion Gap 9 BUN 11 Creatinine 1.3 Estim Creat Clear Calc 76.4 eGFR > 60 BUN/Creatinine Ratio 8 L Glucose 96 Calculated Osmolality 265 L Calcium 8.5 Quality Measures Quality Measures none Assessment & Plan Assessment Current Active Medications: Generic Name Dose Route Start Last Admin Trade Name Freq PRN Reason Stop Dose Admin Acetaminophen 650 mg 04/15/24 22:59 Acetaminophen 325 Mg Tablet PO 05/15/24 22:58 Q6H PRN Fever >101.5 Hydrocodone Bitart/Acetaminophen 1 tab 04/21/24 12:49 Hydrocodone/Apap 5/325 Tablet PO 04/25/24 12:24 Q4HR PRN PAIN SCALE 4-6 (Moderate Heparin Sodium (Porcine) 5,000 unit 04/20/24 21:00 04/21/24 09:18 Heparin Sod Inj 5000 Unit/Ml Vial SC 04/29/24 23:14 5,000 unit Q12HR ILDEFONSO Administration Piperacillin/Tazobactam/Dextrose 50 mls @ 12.5 mls/hr 04/16/24 06:00 04/21/24 13:57 Zosyn IV 04/23/24 05:59 12.5 mls/hr Q8HR ILDEFONSO Administration Magnesium Hydroxide 30 ml 04/21/24 10:50 Milk Of Magnesia Susp 30 Ml Udc PO 05/21/24 10:49 QDAY PRN CONSTIPATION Protocol Naloxone HCl 2 mg 04/19/24 23:53 Naloxone Inj 1 Mg/Ml Syringe 2 Ml IM 05/19/24 23:52 Q3M PRN OPIATE REVERSAL Ondansetron HCl 4 mg 04/15/24 22:59 04/20/24 07:42 Ondansetron Inj 2 Mg/Ml Inj 2 Ml IV 05/15/24 22:58 4 mg Q6H PRN Administration NAUSEA OR VOMITING Protocol Pantoprazole Sodium 40 mg 04/16/24 09:00 04/21/24 09:18 Pantoprazole Inj 40 Mg Vial IVP 05/16/24 08:59 40 mg QDAY ILDEFONSO Administration Polyethylene Glycol 17 gm 04/20/24 14:45 04/21/24 09:18 Polyethylene Glycol 17 Gm Packet PO 05/20/24 14:44 17 gm BID ILDEFONSO Administration Plan Mr. William is a 53-year-old male who presented to [facility] emergency department on 04/15/24 with a chief complaints of abdominal pain and distention. Patient was recently seen in the ED on 04/07/2024 diagnosed with diverticulitis and was discharged on oral antibiotics. Patient admitted to hospital for further management of complicated sigmoid diverticulitis. 1. Complicated sigmoid diverticulitis with pelvic abscess s/p peritoneal drain 04/18/2024 2. Sepsis secondary to perforated diverticulitis - resolving Initially presented to ED on 04/07/24 was diagnosed with diverticulitis, was discharged on oral antibiotics had progressive worsening of symptoms. Patient met SIRS criteria patient tachycardic, WBC count 18.4. Patient also had endorgan damage of BENEDICT Sepsis due to [perforated sigmoid diverticulitis] with acute sepsis-related organ dysfunction as evidence by [acute kidney injury, creatinine of 1.7 on admission]. Abdomen/pelvis CT completed on 04/15/2024 findings include: Bilobed pelvic abscess collection, transverse dimension 18 cm Abdomen/pelvis CT completed on 04/21/2024 findings include: Marked decrease in size of anterior abdominal wall abscess. New abscess in posterior pelvis 7 x 6.8 cm amenable to catheter drainage placement. Pro-Brian 1.75, CRP 30.3 Patient had IR guided peritoneal drain placed on 04/18/2024. Drained 30 cc purulent fluid in the past 24 hours Plan: ? Graduated to regular diet - Continue Zosyn 3.375 g IV Q8 hourly [04/15- - General surgery, Dr. Chahal consulted. She will remove current peritoneal drain and advise for repeat drain placement tomorrow. ? General Surgery, Dr. Chahal consulted. Appreciate recommendations ? GI, Dr. Denton consulted. Appreciate recommendations 3. Acute kidney injury prerenal versus renal?resolved On presentation BUN 33, creatinine 1.7, GFR 48 BUN improved to 21 and CR 0.8 Plan: -Avoid nephrotoxic agents -Renally dose meds 4. Urinary tract infection - resolving UA significant for rare bacteria, WBC 44, RBC 7 nitrite and leukocyte esterase negative. Plan: - Continue IV Zosyn - Urine culture pending 5. Bilateral renal calculi Bilateral renal calculi nonobstructing largest measuring 3 mm in the left kidney, perinephric fat stranding bilaterally Plan: -Consider outpatient workup 6. Mild transaminitis?resolving AST 76 ---> 60 , ALT 92---> 80, alk phos 141 ---> 129 Plan: ? Continue to monitor on CMP 7. Hypochloremic hyponatremia?resolved Continue maintenance fluids, monitor in a.m. NA 136, CL 98 Health maintenance: Disposition: Pending IR guided peritoneal drain placement on 04/22/2024. IV antibiotics Diet: Regular Lines: pIVs GI Prophylaxis: None Thrombo Prophylaxis: None Code status: FULL CODE Plan of care discussed with Attending Dr. Jain and PGY3 Dr. Ky Montgomery MD PGY 1
[2024-04-21] MEDS: HYDROcodone/APAP 5/325 TABLET 1 TAB PO ×2 (16:29→20:36)
[2024-04-22] VITALS (12 sets, daily range): BP systolic 136–169; BP diastolic 84–99; PULSE 56–80; RESP 12–20; TEMP 36.1–36.9; O2SAT 92–99
[2024-04-22] MEDS: HYDROcodone/APAP 5/325 TABLET 1 TAB PO ×2 (01:30→05:22)
[2024-04-22] MEDS: PIPER/TAZO 3.375 GM 50 ML IV ×3 (05:22→21:54)
--- NOTE | 2024-04-22 07:49 | ESPR_ITS ---
<Statement entered by Maxwell Jain MD - 04/29/24 15:03> I reviewed above note and agree with findings and plans. I have also personally examined the patient with medicine team and went over assessment and plan with medical team including customer experience intern and resident physician. <Statement entered by Darrell Mcpherson MD - 04/23/24 17:15> Agree with plan and examination finding on the note below. Patient seen and examined at bedside today. Labs and imaging reviewed. Patient care discussed with my attending Dr. Jain and co-resident Dr. Montgomery. Documentation for date of: 04/22/24 Subjective Subjective Interval history: LPatient was seen and examined at bedside this AM. No acute exents overnight. Patient npo, adequate urine output and mentation is at baseline. Patient still complains of abdominal pain. Will restart Hydromorphone Patient Scheduled for IR guided placement of peritoneal drain today. Exam Vital Signs Temp Pulse Resp BP Pulse Ox O2 Del Method O2 Flow Rate 98.0 F 58 L 15 137/86 H 93 L Room Air 2 04/22/24 04:00 04/22/24 04:00 04/22/24 04:00 04/22/24 04:00 04/22/24 04:00 04/22/24 04:00 04/18/24 16:00 Narrative Exam Constitutional Alert, oriented x 3 and in mild distress. Middle-age male HEENT Vision grossly intact. Patent nares. Trachea midline Respiratory Chest normal on inspection and clear auscultation bilaterally Cardiovascular S1 and S2 audible, RRR. No murmurs carotid bruit. No gross JVD. Abdominal Soft, tender to palpation in left lower quadrant. Bowel sounds present Genitourinary No bladder tenderness, no flank pain. Normal to palpation Musculoskeletal Extremities tone within normal limits. No LE edema. Neurological CN II - XII grossly intact. Extremity motor and sensation grossly intact. Skin Warm, dry and intact. Psychiatric Patient has good affect, is cooperative Objective Labs 04/21/24 08:10 04/21/24 08:10 Labs: Laboratory Results - last 24 hr 04/21/24 08:10 WBC 13.4 H RBC 5.01 Hgb 15.0 D Hct 43.5 MCV 87 MCH 29.9 MCHC 34.5 RDW Std Deviation 40.9 Plt Count 503 H D Neut % (Auto) 82 H Lymph % (Auto) 9 L [place] % (Auto) 6 Eos % (Auto) 1 Baso % (Auto) 0 Neut # (Auto) 11.0 H Lymph # (Auto) 1.2 [place] # (Auto) 0.8 Eos # (Auto) 0.1 Baso # (Auto) 0.1 Immature Gran # (Auto) 0.29 H Absolute Nucleated RBC 0.00 Immature Gran % 2 H Nucleated RBC % 0 Sodium 133 L Potassium 3.5 Chloride 94 L Carbon Dioxide 30.2 Anion Gap 9 BUN 11 Creatinine 1.3 Estim Creat Clear Calc 76.4 eGFR > 60 BUN/Creatinine Ratio 8 L Glucose 96 Calculated Osmolality 265 L Calcium 8.5 Quality Measures Quality Measures none Assessment & Plan Assessment Current Active Medications: Generic Name Dose Route Start Last Admin Trade Name Freq PRN Reason Stop Dose Admin Acetaminophen 650 mg 04/15/24 22:59 Acetaminophen 325 Mg Tablet PO 05/15/24 22:58 Q6H PRN Fever >101.5 Hydrocodone Bitart/Acetaminophen 1 tab 04/21/24 12:49 04/22/24 05:22 Hydrocodone/Apap 5/325 Tablet PO 04/25/24 12:24 1 tab Q4HR PRN Administration PAIN SCALE 4-6 (Moderate Heparin Sodium (Porcine) 5,000 unit 04/20/24 21:00 04/21/24 20:37 Heparin Sod Inj 5000 Unit/Ml Vial SC 04/29/24 23:14 5,000 unit Q12HR ILDEFONSO Administration Piperacillin/Tazobactam/Dextrose 50 mls @ 12.5 mls/hr 04/16/24 06:00 04/22/24 05:22 Zosyn IV 04/23/24 05:59 12.5 mls/hr Q8HR ILDEFONSO Administration Ketorolac Tromethamine 15 mg 04/21/24 16:19 Ketorolac Inj 30 Mg/Ml Vial IVP 04/26/24 16:18 Q6HR PRN PAIN Protocol Magnesium Hydroxide 30 ml 04/21/24 10:50 Milk Of Magnesia Susp 30 Ml Udc PO 05/21/24 10:49 QDAY PRN CONSTIPATION Protocol Naloxone HCl 2 mg 04/19/24 23:53 Naloxone Inj 1 Mg/Ml Syringe 2 Ml IM 05/19/24 23:52 Q3M PRN OPIATE REVERSAL Ondansetron HCl 4 mg 04/15/24 22:59 02/08/25 07:42 Ondansetron Inj 2 Mg/Ml Inj 2 Ml IV 05/15/24 22:58 4 mg Q6H PRN Administration NAUSEA OR VOMITING Protocol Pantoprazole Sodium 40 mg 04/16/24 09:00 04/21/24 09:18 Pantoprazole Inj 40 Mg Vial IVP 05/16/24 08:59 40 mg QDAY ILDEFONSO Administration Polyethylene Glycol 17 gm 04/20/24 14:45 04/21/24 20:42 Polyethylene Glycol 17 Gm Packet PO 05/20/24 14:44 17 gm BID ILDEFONSO Administration Plan Mr. William is a 53-year-old male who presented to [facility] ([facility] emergency department on 04/15/24 with a chief complaints of abdominal pain and distention. Patient was recently seen in the ED on 04/07/2024 diagnosed with diverticulitis and was discharged on oral antibiotics. Patient admitted to hospital for further management of complicated sigmoid diverticulitis. 1. Complicated sigmoid diverticulitis with pelvic abscess s/p peritoneal drain 04/22/2024 2. Sepsis secondary to perforated diverticulitis - resolving Initially presented to ED on 04/07/24 was diagnosed with diverticulitis, was discharged on oral antibiotics had progressive worsening of symptoms. Patient met SIRS criteria patient tachycardic, WBC count 18.4. Patient also had endorgan damage of BENEDICT Sepsis due to [perforated sigmoid diverticulitis] with acute sepsis-related organ dysfunction as evidence by [acute kidney injury, creatinine of 1.7 on admission]. Abdomen/pelvis CT completed on 04/15/2024 findings include: Bilobed pelvic abscess collection, transverse dimension 18 cm Abdomen/pelvis CT completed on 04/21/2024 findings include: Marked decrease in size of anterior abdominal wall abscess. New abscess in posterior pelvis 7 x 6.8 cm amenable to catheter drainage placement. Pro-Brian 1.75, CRP 30.3 Patient had IR guided peritoneal drain placed on 04/18/2024 and removal on 04/21/2024 Plan: ? NPO - Continue Zosyn 3.375 g IV Q8 hourly [04/15- - For placement of IR guided peritoneal drain today ? General Surgery, Dr. Chahal consulted. Appreciate recommendations ? GI, Dr. Denton consulted. Appreciate recommendations 3. Acute kidney injury prerenal versus renal?resolved On presentation BUN 33, creatinine 1.7, GFR 48 BUN improved to 21 and CR 0.8 4. Urinary tract infection - resolving UA significant for rare bacteria, WBC 44, RBC 7 nitrite and leukocyte esterase negative. Plan: - Continue IV Zosyn - Urine culture pending 5. Bilateral renal calculi Bilateral renal calculi nonobstructing largest measuring 3 mm in the left kidney, perinephric fat stranding bilaterally Plan: -Consider outpatient workup 6. Mild transaminitis?resolving AST 76 ---> 60 , ALT 92---> 80, alk phos 141 ---> 129 Plan: ? Continue to monitor on CMP 7. Hypochloremic hyponatremia?resolved Continue maintenance fluids, monitor in a.m. NA 136, CL 98 Health maintenance: Disposition: IR guided peritoneal drain placement on 04/22/2024. IV antibiotics Diet: Regular Lines: pIVs GI Prophylaxis: None Thrombo Prophylaxis: None Code status: FULL CODE Plan of care discussed with Attending Dr. Jain and PGY3 Dr. Ky Montgomery MD PGY 1
--- NOTE | 2024-04-22 08:00 | XR_ITS ---
Examination: CT-guided percutaneous placement abscess drainage catheter pelvic abscess CT pelvis without intravenous contrast Date and time of procedure: April 22, 2024 1032 hours INDICATIONS: Post diverticulitis, large abscess in the pelvis on CT abdomen pelvis April 21, 2024. Informed consent provided. A timeout was completed verifying correct patient, procedure, site and positioning. Technique: Axial 3 mm sections were obtained for localization of the pelvic abscess Appropriate area is marked. The patient's site was prepped and draped in sterile fashion Maximal sterile barrier technique utilized, including hand hygiene Local anesthesia was obtained with 1% lidocaine. Low dose protocols were performed. One or more of the following dose reduction techniques were used; automated exposure control, adjustment of the mA and/or KV according to patient size, use of iterative reconstruction technique. Utilizing CT fluoroscopic guidance 5 Armenian catheter placed in the pelvic abscess followed by 7 Armenian dilator and 6 Armenian pigtail abscess drainage catheter Patient appears in stable condition during this procedure. At completion of the procedure, the patient is in satisfactory condition. Estimated blood loss 0 cc Complete culture and sensitivity report to follow. Impression: Successful CT-guided percutaneous placement abscess drainage catheter in pelvic abscess
[2024-04-22 08:47] LABS: INR 1.1 (0.9-1.3); Partial Thromboplastin Time 26.5 Seconds (22.0-36.0); Prothrombin Time 11.7 Seconds (9.0-12.2)
--- NOTE | 2024-04-22 09:13 | PC.SS ---
Follow up note: Pt developed another abscess and will have another drained placed. Pt will return home upon dc.
[2024-04-22] MEDS: fentaNYL CIT INJ 50 mCg/ML AMP 2ML 100 MCG IVP (10:51)
[2024-04-22] MEDS: PANTOPRAZOLE INJ 40 MG VIAL IVP (11:49)
[2024-04-22] MEDS: POLYETHYLENE GLYCOL 17 GM PACKET PO ×2 (11:50→21:54)
[2024-04-22] MEDS: HEPARIN SOD INJ 5000 UNIT/ML VIAL SC ×2 (11:52→21:56)
[2024-04-22] MEDS: HYDROmorphone INJ 2 MG/ML VIAL 1 MG IVP ×3 (12:04→22:11)
--- NOTE | 2024-04-22 20:20 | PD.IMPROG ---
Documentation for date of: 04/22/24 Subjective Subjective Interval history: White blood cell count trending upwards Patient status post placement of a IR catheter in the pelvic abscess today Exam Vital Signs Temp Pulse Resp BP Pulse Ox O2 Del Method O2 Flow Rate 98.4 F 80 18 158/94 H 94 L Room Air 3 04/22/24 16:00 04/22/24 16:00 04/22/24 16:00 04/22/24 16:00 04/22/24 16:00 04/22/24 16:00 04/22/24 11:15 Objective Labs 04/21/24 08:10 04/21/24 08:10 Labs: Laboratory Results - last 24 hr 04/22/24 07:34 PT 11.7 INR 1.1 APTT 26.5 Impressions Impression: # Pelvic abscess status post IR drainage catheter placement via CT-guided by IR # Acute left-sided diverticulitis Continue current management Assessment & Plan A&P Narrative # Acute sigmoid diverticulitis # Pelvic abscess 18 cm fluid collection plan Broad-spectrum IV antibiotics IR drainage of the pelvic abscess Will follow the patient Thank you for the opportunity to participate in the care of this patient Time Spent With Patient Time: Total time spent is greater than 50% in coordination of care (as documented) at patient's floor/unit and/or counseling patient:
[2024-04-23] VITALS: BP 146/92; PULSE 57; RESP 16; TEMP 36.3; O2SAT 97
[2024-04-23 04:00] VITALS: BP 138/75; PULSE 63; RESP 18; TEMP 36.2; O2SAT 95
[2024-04-23] MEDS: HYDROmorphone INJ 2 MG/ML VIAL 1 MG IVP ×4 (05:15→20:49)
[2024-04-23 05:30] LABS: Basophils # (Auto) 0.1 Thou/mm3 (0.0-0.2); Basophils % (Auto) 1 % (0-2.5); Eosinophils # (Auto) 0.1 Thou/mm3 (0.0-0.5); Eosinophils % (Auto) 1 % (0-10); Hematocrit 38.3 % (41.0-53.0); Hemoglobin 12.9 g/dL (13.5-16.0); Immature Granulocytes % (Auto) 1 % (0-0); Immature Granulocytes Auto 0.16 Thou/mm3 (0.00-0.00); Lymphocytes # (Auto) 1.2 Thou/mm3 (1.0-4.8); Lymphocytes % (Auto) 11 % (10-50); Mean Corpuscular HGB Conc 33.7 g/dl (31.0-37.0); Mean Corpuscular Hemoglobin 29.5 pg (25.0-35.0); Mean Corpuscular Volume 88 fL (80-100); Monocytes # (Auto) 0.8 Thou/mm3 (0.0-0.8); Monocytes % (Auto) 7 % (0-12); Neutrophils # (Auto) 8.8 Thou/mm3 (1.8-7.7); Neutrophils % (Auto) 79 % (37-80); Nucleated Red Blood Cell % 0 /100 WBC (0); Platelet Count 500 Thou/mm3 (140-440); RDW Standard Deviation 41.1 fL (35.1-43.9); Red Blood Count 4.37 Miln/mm3 (4.50-5.90); White Blood Count 11.1 Thou/mm3 (3.8-10.6)
[2024-04-23 06:09] LABS: Anion Gap 10 (7-16); BUN/Creatinine Ratio 12 Ratio (12-20); Blood Urea Nitrogen 12 mg/dL (9-23); Carbon Dioxide 28.3 mMol/L (20.0-31.0); Chloride 95 mMol/L (98-107); Estimated Creatinine Clearance 99.3 mL/min (>60); Glucose 85 mg/dL (74-106); Osmolality,Calculated 265 (275-295); Potassium 3.7 mMol/L (3.4-5.1); Sodium 133 mMol/L (136-145); eGFR > 60 See Note
[2024-04-23 07:49] VITALS: BP 146/97; PULSE 68; RESP 17; TEMP 36.2; O2SAT 94
--- NOTE | 2024-04-23 08:50 | ESPR_ITS ---
<Statement entered by Maxwell Jain MD - 04/29/24 15:03> I reviewed above note and agree with findings and plans. I have also personally examined the patient with medicine team and went over assessment and plan with medical team including agriculture internship and resident physician. <Statement entered by Darrell Mcpherson MD - 04/25/24 10:43> Agree with plan and examination finding on the note below. Patient seen and examined at bedside today. Labs and imaging reviewed. Patient care discussed with my attending and co-resident Dr. Montgomery. Documentation for date of: 04/23/24 Subjective Subjective Interval history: Patient was seen and examined at bedside this AM. No acute exents overnight. Patient tolerating diet, adequate urine output and mentation is at baseline. Patient complains of abdominal pain. Relieved by pain medication Patient had IR guided peritoneal drain placement yesterday. 160 cc purulent fluid drainage in the past 24 hours. Patient wound culture 04/18/2024 grew E. coli and Bacteroides. Started on ceftriaxone 2 g IV daily and metronidazole 500 Mg IV twice daily Exam Vital Signs Temp Pulse Resp BP Pulse Ox O2 Del Method O2 Flow Rate 97.2 F 68 17 146/97 H 94 L Room Air 3 04/23/24 07:49 04/23/24 07:49 04/23/24 07:49 04/23/24 07:49 04/23/24 07:49 04/23/24 07:49 04/22/24 11:15 Narrative Exam Constitutional Alert, oriented x 3 and in mild distress. Middle-age male HEENT Vision grossly intact. Patent nares. Trachea midline Respiratory Chest normal on inspection and clear auscultation bilaterally Cardiovascular S1 and S2 audible, RRR. No murmurs carotid bruit. No gross JVD. Abdominal Soft, tender to palpation in left lower quadrant. Peritoneal drain located left lower quadrant. Exit site clean. Bowel sounds present Genitourinary No bladder tenderness, no flank pain. Normal to palpation Musculoskeletal Extremities tone within normal limits. No LE edema. Neurological CN II - XII grossly intact. Extremity motor and sensation grossly intact. Skin Warm, dry and intact. Psychiatric Patient has good affect, is cooperative Objective Labs 04/23/24 04:36 04/23/24 04:36 Labs: Laboratory Results - last 24 hr 04/23/24 04:36 WBC 11.1 H RBC 4.37 L Hgb 12.9 L D Hct 38.3 L MCV 88 MCH 29.5 MCHC 33.7 RDW Std Deviation 41.1 Plt Count 500 H Neut % (Auto) 79 Lymph % (Auto) 11 [place] % (Auto) 7 Eos % (Auto) 1 Baso % (Auto) 1 Neut # (Auto) 8.8 H Lymph # (Auto) 1.2 [place] # (Auto) 0.8 Eos # (Auto) 0.1 Baso # (Auto) 0.1 Immature Gran # (Auto) 0.16 H Absolute Nucleated RBC 0.00 Immature Gran % 1 H Nucleated RBC % 0 Sodium 133 L Potassium 3.7 Chloride 95 L Carbon Dioxide 28.3 Anion Gap 10 BUN 12 Creatinine 1.0 Estim Creat Clear Calc 99.3 eGFR > 60 BUN/Creatinine Ratio 12 Glucose 85 Calculated Osmolality 265 L Calcium 9.0 Quality Measures Quality Measures none Assessment & Plan Assessment Current Active Medications: Generic Name Dose Route Start Last Admin Trade Name Freq PRN Reason Stop Dose Admin Acetaminophen 650 mg 04/22/24 09:10 Acetaminophen 325 Mg Tablet PO 05/15/24 22:58 Q6H PRN Fever >100.3 or pain Protocol Hydrocodone Bitart/Acetaminophen 1 tab 04/22/24 09:10 Hydrocodone/Apap 5/325 Tablet PO 04/25/24 12:24 Q4HR PRN PAIN SCALE 7-10 (Severe Heparin Sodium (Porcine) 5,000 unit 04/20/24 21:00 04/22/24 21:56 Heparin Sod Inj 5000 Unit/Ml Vial SC 04/29/24 23:14 5,000 unit Q12HR ILDEFONSO Administration Hydromorphone HCl 1 mg 04/22/24 09:08 04/23/24 05:15 Hydromorphone Inj 2 Mg/Ml Vial IVP 04/27/24 09:07 1 mg Q4HR PRN Administration BREAKTHROUGH PAIN Protocol Ceftriaxone Sodium 2 gm/ 50 mls @ 100 mls/hr 04/23/24 09:00 Sodium Chloride IV 04/30/24 08:59 QDAY ILDEFONSO Metronidazole 500 mg in 100 mls @ 200 mls/hr 04/23/24 09:00 Flagyl 500 Mg Iv IV 04/30/24 08:59 Q12HR [facility] Ketorolac Tromethamine 15 mg 04/22/24 09:10 Ketorolac Inj 30 Mg/Ml Vial IVP 04/26/24 16:18 Q6HR PRN PAIN 4-6 (MODERATE) Magnesium Hydroxide 30 ml 04/21/24 10:50 Milk Of Magnesia Susp 30 Ml Udc PO 05/21/24 10:49 QDAY PRN CONSTIPATION Protocol Naloxone HCl 2 mg 04/19/24 23:53 Naloxone Inj 1 Mg/Ml Syringe 2 Ml IM 05/19/24 23:52 Q3M PRN OPIATE REVERSAL Ondansetron HCl 4 mg 04/15/24 22:59 04/20/24 07:42 Ondansetron Inj 2 Mg/Ml Inj 2 Ml IV 05/15/24 22:58 4 mg Q6H PRN Administration NAUSEA OR VOMITING Protocol Pantoprazole Sodium 40 mg 04/16/24 09:00 04/22/24 11:49 Pantoprazole Inj 40 Mg Vial IVP 05/16/24 08:59 40 mg QDAY ILDEFONSO Administration Polyethylene Glycol 17 gm 04/20/24 14:45 04/22/24 21:54 Polyethylene Glycol 17 Gm Packet PO 05/20/24 14:44 17 gm BID ILDEFONSO Administration Plan Mr. William is a 53-year-old male who presented to [facility] emergency department on 04/15/24 with a chief complaints of abdominal pain and distention. Patient was recently seen in the ED on 04/07/2024 diagnosed with diverticulitis and was discharged on oral antibiotics. Patient admitted to hospital for further management of complicated sigmoid diverticulitis. 1. Complicated sigmoid diverticulitis with pelvic abscess s/p peritoneal drain 04/22/2024 2. Sepsis secondary to perforated diverticulitis - resolving Initially presented to ED on 04/07/24 was diagnosed with diverticulitis, was discharged on oral antibiotics had progressive worsening of symptoms. Patient met SIRS criteria patient tachycardic, WBC count 18.4. Patient also had endorgan damage of BENEDICT Sepsis due to [perforated sigmoid diverticulitis] with acute sepsis-related organ dysfunction as evidence by [acute kidney injury, creatinine of 1.7 on admission]. Abdomen/pelvis CT completed on 04/15/2024 findings include: Bilobed pelvic abscess collection, transverse dimension 18 cm Abdomen/pelvis CT completed on 04/21/2024 findings include: Marked decrease in size of anterior abdominal wall abscess. New abscess in posterior pelvis 7 x 6.8 cm amenable to catheter drainage placement. Pro-Brian 1.75, CRP 30.3 Patient had IR guided peritoneal drain placed on 04/18/2024 and removal on 04/21/2024 Patient received 9 days of Zosyn 3.375 g IV Q8 hourly from [04/15 - 04/23] Plan: ? Regular diet ? Started on ceftriaxone 2 g IV daily on [04/23? ? Started on metronidazole 500 Mg IV Q8 hourly on [04/23? ? General Surgery, Dr. Chahal consulted. Appreciate recommendations ? GI, Dr. Denton consulted. Appreciate recommendations 3. Acute kidney injury prerenal versus renal?resolved On presentation BUN 33, creatinine 1.7, GFR 48 BUN improved to 21 and CR 0.8 4. Urinary tract infection - treated UA significant for rare bacteria, WBC 44, RBC 7 nitrite and leukocyte esterase negative. Patient received 9 days Zosyn and still currently on IV antibiotic. 5. Bilateral renal calculi Bilateral renal calculi nonobstructing largest measuring 3 mm in the left kidney, perinephric fat stranding bilaterally Plan: -Consider outpatient workup 6. Mild transaminitis?resolving AST 76 ---> 60 , ALT 92---> 80, alk phos 141 ---> 129 Plan: ? Continue to monitor on CMP 7. Hypochloremic hyponatremia?resolved Continue maintenance fluids, monitor in a.m. NA 136, CL 98 Health maintenance: Disposition: Drainage of abdominal abscess. Diet: Regular Lines: pIVs GI Prophylaxis: None Thrombo Prophylaxis: None Code status: FULL CODE Plan of care discussed with Attending Dr. Jain and PGY3 Dr. Ky Montgomery MD PGY 1
--- NOTE | 2024-04-23 08:52 | ESPR_ITS ---
Documentation for date of: 04/23/24 Subjective Subjective Interval history: Patient evaluated WBC count is coming down to 11.1 Exam Vital Signs Temp Pulse Resp BP Pulse Ox O2 Del Method O2 Flow Rate 97.2 F 68 17 146/97 H 94 L Room Air 3 04/23/24 07:49 04/23/24 07:49 04/23/24 07:49 04/23/24 07:49 04/23/24 07:49 04/23/24 07:49 04/22/24 11:15 Objective Labs 04/23/24 04:36 04/23/24 04:36 Labs: Laboratory Results - last 24 hr 04/23/24 04:36 WBC 11.1 H RBC 4.37 L Hgb 12.9 L D Hct 38.3 L MCV 88 MCH 29.5 MCHC 33.7 RDW Std Deviation 41.1 Plt Count 500 H Neut % (Auto) 79 Lymph % (Auto) 11 [place] % (Auto) 7 Eos % (Auto) 1 Baso % (Auto) 1 Neut # (Auto) 8.8 H Lymph # (Auto) 1.2 [place] # (Auto) 0.8 Eos # (Auto) 0.1 Baso # (Auto) 0.1 Immature Gran # (Auto) 0.16 H Absolute Nucleated RBC 0.00 Immature Gran % 1 H Nucleated RBC % 0 Sodium 133 L Potassium 3.7 Chloride 95 L Carbon Dioxide 28.3 Anion Gap 10 BUN 12 Creatinine 1.0 Estim Creat Clear Calc 99.3 eGFR > 60 BUN/Creatinine Ratio 12 Glucose 85 Calculated Osmolality 265 L Calcium 9.0 Impressions Impression: # Pelvic abscess in the setting of acute left-sided diverticulitis status post IR drainage # Leukocytosis improving Continue current management Assessment & Plan A&P Narrative # Acute sigmoid diverticulitis # Pelvic abscess 18 cm fluid collection plan Broad-spectrum IV antibiotics IR drainage of the pelvic abscess Will follow the patient Thank you for the opportunity to participate in the care of this patient Time Spent With Patient Time: Total time spent is greater than 50% in coordination of care (as documented) at patient's floor/unit and/or counseling patient:
[2024-04-23] MEDS: PANTOPRAZOLE INJ 40 MG VIAL IVP (09:49)
[2024-04-23] MEDS: POLYETHYLENE GLYCOL 17 GM PACKET PO ×2 (09:50→20:35)
[2024-04-23] MEDS: HEPARIN SOD INJ 5000 UNIT/ML VIAL SC ×2 (09:50→20:39)
[2024-04-23] MEDS: cefTRIAXone 2 GM in SODIUM CHLORIDE 0.9% (P) 50 ML IV (09:51)
[2024-04-23] MEDS: metroNIDAZOLE/NS 500 MG IVPB 500 MG/100 ML BAG 200 MG IV ×2 (09:52→22:25)
[2024-04-23 11:43] VITALS: BP 139/87; PULSE 60; RESP 16; TEMP 36.4; O2SAT 98
[2024-04-23 12:30] VITALS: BMI 28.8
--- NOTE | 2024-04-23 14:23 | PD.SURCONPRO ---
Documented by User: Matt Carey 04/23/24 14:45 Documentation for date of: 04/23/24 Subjective Subjective Brief History: 53 year old male with pmh of SBO and sigmoid perforation from diverticulitis presenting post op after IR drainage of abscess. Narrative: Patient states he is doing well after drainage and states that 800 ml was drained earlier. He states that his urinary urgency and frequency is much improved. He states his pain is well controlled and received dilaudid this morning at 10 am. Patient is now on a regular diet, but states that his appetite is poor and only able to consume one jello cup during the day. He is drinking water without issue and produced 200 ml of urine this morning. He states that he also had two bowel movements with morning with well formed stools and is passing flatus. Exam Vital Signs Temp Pulse Resp BP Pulse Ox O2 Del Method O2 Flow Rate 97.6 F 60 16 139/87 H 98 Room Air 3 04/23/24 11:43 04/23/24 11:43 04/23/24 11:43 04/23/24 11:43 04/23/24 11:43 04/23/24 11:43 04/22/24 11:15 Constitutional Constitutional: no acute distress and cooperative Routine Respiratory Exam Respiratory: Present no resp distress; Absent accessory muscle use Routine Abdominal Exam Abdominal: Present distended (slightly, but much improved from previous ) Results Results: Laboratory Laboratory results: results reviewed Assessment & Plan Diagnosis (1) Small bowel obstruction: Status: Acute (2) Perforation of sigmoid colon due to diverticulitis: Status: Acute Assessment Additional comments: 53 year old male presenting after IR drainage of abscess located above bladder. Abscess has much decreased in size following the drainage and amount of drainage is continuing to trend down. WBCs are elevated, but are trending downwards. Plan Continue patient on antibiotics for the abscess and continue to monitor his symptoms. Repeat imaging will be needed to access the abscess. Patient is going to be given information on elective surgery and will be followed as outpatient. Documented by User: Chandni Chahal MD 04/24/24 10:49 Exam Vital Signs Temp Pulse Resp BP Pulse Ox O2 Del Method O2 Flow Rate 97.6 F 60 16 139/87 H 98 Room Air 3 04/23/24 11:43 04/23/24 11:43 04/23/24 11:43 04/23/24 11:43 04/23/24 11:43 04/23/24 11:43 04/22/24 11:15 Assessment & Plan Diagnosis (1) Small bowel obstruction: Status: Acute (2) Perforation of sigmoid colon due to diverticulitis: Status: Acute Assessment Additional comments: 53 year old male presenting with diverticulitis with associated abscesses now s/p IR drainage of pelvic abscess 04/22/24, WBCs are trending downwards. Plan Continue patient on antibiotics for the abscess and continue to monitor his symptoms. Repeat imaging will be needed to access the abscess when drain output <20cc/24h, will discuss elective sigmoidectomy as outpt
[2024-04-23 15:57] VITALS: BP 151/93; PULSE 77; RESP 17; TEMP 36.2; O2SAT 94
--- NOTE | 2024-04-23 18:45 | PC.NURSE ---
20 cc of the drainage output from the drain
[2024-04-23 20:00] VITALS: BP 123/75; PULSE 65; RESP 17; TEMP 36.1; O2SAT 95
[2024-04-24] VITALS: BP 150/85; PULSE 59; RESP 17; TEMP 36.1; O2SAT 96
[2024-04-24 04:00] VITALS: BP 136/88; PULSE 63; RESP 16; TEMP 36.2; O2SAT 95
[2024-04-24] MEDS: HYDROmorphone INJ 2 MG/ML VIAL 1 MG IVP ×5 (04:06→23:23)
[2024-04-24] MEDS: metroNIDAZOLE/NS 500 MG IVPB 500 MG/100 ML BAG 200 MG IV ×2 (05:47→14:20)
[2024-04-24 07:47] VITALS: BP 143/96; PULSE 86; RESP 16; TEMP 36.2; O2SAT 97
[2024-04-24] MEDS: cefTRIAXone 2 GM in SODIUM CHLORIDE 0.9% (P) 50 ML IV (09:22)
--- NOTE | 2024-04-24 09:26 | PC.SS ---
Follow up note: drain is still draining. Will get CT scan. Pt will return home upon dc.
[2024-04-24] MEDS: HEPARIN SOD INJ 5000 UNIT/ML VIAL SC ×2 (09:29→21:30)
[2024-04-24] MEDS: POLYETHYLENE GLYCOL 17 GM PACKET PO ×2 (09:29→21:30)
--- NOTE | 2024-04-24 09:33 | XR_ITS ---
Examination: CT abdomen with intravenous contrast CT pelvis with intravenous contrast 2-D coronal reconstructions 2-D sagittal reconstructions Date and time of exam:April 24, 2024 1340 hours INDICATIONS: History abdominal abscesses,. Status post catheter placement for pelvic abscess February 19, 2025, history abscess catheter placement large anterior pelvic wall abscess April 18, 2024 CTDI: vol (mGy) 7.18 DLP: (mGycm) 469 Technique: Multiple axial sections of the abdomen and pelvis have been obtained. 64 slice high-resolution scanner used. 3 mm axial sections have been obtained, post intravenous injection 60 cc [id number] 2-D sagittal, coronal reconstructions obtained. Low dose protocols were performed. One or more of the following dose reduction techniques were used; automated exposure control, adjustment of the mA and/or KV according to patient size, use of iterative reconstruction technique. Findings: The pelvic abscess has completely resolved, the catheter can be removed as clinically warranted The anterior abdominal wall abscess no longer has a drainage catheter. It is much smaller measuring 7.5 cm in transverse dimension by consider limited insertion of a catheter and drainage of the small remaining abscess follow-up There is 1 additional adjacent abscess in the mid abdomen, 3 cm surrounded by bowel which is not amenable to catheter drainage IMPRESSION: Pelvic abscess has completely resolved Much smaller anterior abdomen abscess with recommendations as above
--- NOTE | 2024-04-24 11:00 | PD.SURPROG ---
Documentation for date of: 04/24/24 Subjective Subjective Brief History: 53M presenting with abdominal pain. Patient reports pain began 10 days ago in the left lower quadrant, he denies any history of similar pain. Pain is associated with loose stools, subjective fever and chills. Patient first presented to the ER when the pain began and at that time had findings of acute diverticulitis but no abscess and he was discharged home with antibiotics, however yesterday he was seen by GI and advised to seek care in ER. While in the ER workup showed WBC 18, and CT indicative of a pelvic abscess Patient reports he has never had a colonoscopy, states that he was feeling very well before pain began 10 days ago. 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 Percutaneous drain had 10 cc output overnight Exam Vital Signs Temp Pulse Resp BP Pulse Ox O2 Del Method O2 Flow Rate 97.1 F 86 16 143/96 H 97 Room Air 3 04/24/24 07:47 04/24/24 07:47 04/24/24 07:47 04/24/24 07:47 04/24/24 07:47 04/24/24 07:47 04/22/24 11:15 Constitutional Constitutional: no acute distress Routine Respiratory Exam Respiratory: Present no resp distress Routine Abdominal Exam Abdominal: Present soft and drain (Percutaneous drain with minimal purulent output); Absent tenderness or distended Results Results: Laboratory Laboratory results: results reviewed Assessment & Plan Plan 53M otherwise healthy presenting with first episode of acute diverticulitis with abscess, s/p percutaneous drain 04/18 which has resolved that abscess, patient additionally noted to have a pelvic abscess which was drained 04/22, recovering well CT today to evaluate pelvic abscess
--- NOTE | 2024-04-24 11:35 | PD.IMPROG ---
Documentation for date of: 04/24/24 Subjective Subjective Interval history: Patient evaluated Exam Vital Signs Temp Pulse Resp BP Pulse Ox O2 Del Method O2 Flow Rate 97.1 F 86 16 143/96 H 97 Room Air 3 04/24/24 07:47 04/24/24 07:47 04/24/24 07:47 04/24/24 07:47 04/24/24 07:47 04/24/24 07:47 04/22/24 11:15 Objective Labs 04/25/24 04:55 04/25/24 04:55 Impressions Impression: # Pelvic abscess status post IR drainage # acute left-sided diverticulitis Assessment & Plan A&P Narrative # Acute sigmoid diverticulitis # Pelvic abscess 18 cm fluid collection plan Broad-spectrum IV antibiotics IR drainage of the pelvic abscess Will follow the patient Thank you for the opportunity to participate in the care of this patient Time Spent With Patient Time: Total time spent is greater than 50% in coordination of care (as documented) at patient's floor/unit and/or counseling patient:
[2024-04-24 11:48] VITALS: BP 141/83; PULSE 63; RESP 18; TEMP 36.3; O2SAT 95
--- NOTE | 2024-04-24 13:26 | ESPR_ITS ---
<Statement entered by Boris Lanier MD - 04/25/24 17:50> Per Dr. Chahal, patient needs drainage for anterior diverticular abscess. I discussed with and supervised the international exchange coordinator physician involved in the care of this patient. Patient assessment and plan was discussed with entire medicine team, including my attending. I agree with the assessment and plan as documented by international exchange coordinator doctor. Patient care was discussed with my attending physician Dr. Dom Lanier, PGY-2 Documentation for date of: 04/24/24 Subjective Subjective Interval history: Patient was seen and examined at bedside this AM. No acute exents overnight. Patient tolerating diet, adequate urine output and mentation is at baseline. Patient complains of abdominal pain. Relieved by pain medication Peritoneal drain had 10 cc of drainage in past [address] abdomen pelvis with contrast ordered. Exam Vital Signs Temp Pulse Resp BP Pulse Ox O2 Del Method O2 Flow Rate 97.4 F 63 18 141/83 H 95 Room Air 3 04/24/24 11:48 04/24/24 11:48 04/24/24 11:48 04/24/24 11:48 04/24/24 11:48 04/24/24 11:48 04/22/24 11:15 Narrative Exam Constitutional Alert, oriented x 3 and in mild distress. Middle-age male HEENT Vision grossly intact. Patent nares. Trachea midline Respiratory Chest normal on inspection and clear auscultation bilaterally Cardiovascular S1 and S2 audible, RRR. No murmurs carotid bruit. No gross JVD. Abdominal Soft, tender to palpation in left lower quadrant. Peritoneal drain located left lateral buttock. Exit site clean. Bowel sounds present Genitourinary No bladder tenderness, no flank pain. Normal to palpation Musculoskeletal Extremities tone within normal limits. No LE edema. Neurological CN II - XII grossly intact. Extremity motor and sensation grossly intact. Skin Warm, dry and intact. Psychiatric Patient has good affect, is cooperative Objective Labs 04/25/24 04:55 04/26/24 08:29 Quality Measures Quality Measures none Assessment & Plan Assessment Current Active Medications: Generic Name Dose Route Start Last Admin Trade Name Freq PRN Reason Stop Dose Admin Acetaminophen 650 mg 04/22/24 09:10 Acetaminophen 325 Mg Tablet PO 05/15/24 22:58 Q6H PRN Fever >100.3 or pain Protocol Hydrocodone Bitart/Acetaminophen 1 tab 02/10/25 09:10 Hydrocodone/Apap 5/325 Tablet PO 04/25/24 12:24 Q4HR PRN PAIN SCALE 7-10 (Severe Heparin Sodium (Porcine) 5,000 unit 04/20/24 21:00 04/24/24 09:29 Heparin Sod Inj 5000 Unit/Ml Vial SC 04/29/24 23:14 5,000 unit Q12HR ILDEFONSO Administration Hydromorphone HCl 1 mg 04/22/24 09:08 04/24/24 09:54 Hydromorphone Inj 2 Mg/Ml Vial IVP 04/27/24 09:07 1 mg Q4HR PRN Administration BREAKTHROUGH PAIN Protocol Metronidazole 500 mg in 100 mls @ 200 mls/hr 04/23/24 22:00 04/24/24 05:47 Flagyl 500 Mg Iv IV 04/30/24 21:59 200 mls/hr Q8HR ILDEFONSO Administration Ceftriaxone Sodium/Dextrose 2 gm in 50 mls @ 100 mls/hr 04/25/24 09:00 Rocephin/D5w 2gm IV 04/30/24 08:59 QDAY ILDEFONSO Ketorolac Tromethamine 15 mg 04/22/24 09:10 Ketorolac Inj 30 Mg/Ml Vial IVP 04/26/24 16:18 Q6HR PRN PAIN 4-6 (MODERATE) Magnesium Hydroxide 30 ml 04/21/24 10:50 Milk Of Magnesia Susp 30 Ml Udc PO 05/21/24 10:49 QDAY PRN CONSTIPATION Protocol Naloxone HCl 2 mg 04/19/24 23:53 Naloxone Inj 1 Mg/Ml Syringe 2 Ml IM 05/19/24 23:52 Q3M PRN OPIATE REVERSAL Ondansetron HCl 4 mg 04/15/24 22:59 04/20/24 07:42 Ondansetron Inj 2 Mg/Ml Inj 2 Ml IV 05/15/24 22:58 4 mg Q6H PRN Administration NAUSEA OR VOMITING Protocol Polyethylene Glycol 17 gm 04/20/24 14:45 04/24/24 09:29 Polyethylene Glycol 17 Gm Packet PO 05/20/24 14:44 17 gm BID ILDEFONSO Administration Plan Mr. William is a 53-year-old male who presented to [facility] emergency department on 04/15/24 with a chief complaints of abdominal pain and distention. Patient was recently seen in the ED on 04/07/2024 diagnosed with diverticulitis and was discharged on oral antibiotics. Patient admitted to hospital for further management of complicated sigmoid diverticulitis. 1. Complicated sigmoid diverticulitis with pelvic abscess s/p peritoneal drain 04/22/2024 2. Sepsis secondary to perforated diverticulitis - resolving Initially presented to ED on 04/07/24 was diagnosed with diverticulitis, was discharged on oral antibiotics had progressive worsening of symptoms. Patient met SIRS criteria patient tachycardic, WBC count 18.4. Patient also had endorgan damage of BENEDICT Sepsis due to [perforated sigmoid diverticulitis] with acute sepsis-related organ dysfunction as evidence by [acute kidney injury, creatinine of 1.7 on admission]. Abdomen/pelvis CT completed on 04/15/2024 findings include: Bilobed pelvic abscess collection, transverse dimension 18 cm Abdomen/pelvis CT completed on 04/21/2024 findings include: Marked decrease in size of anterior abdominal wall abscess. New abscess in posterior pelvis 7 x 6.8 cm amenable to catheter drainage placement. Abdomen/pelvis CT completed on 04/24/2024 findings include posterior pelvic abscess resolved. Anterior abdominal wall abscess 7.5 cm in transverse diameter, consider insertion of catheter and drainage. 1 additional 3 cm abscess mid abdomen not amenable to drainage. Pro-Brian 1.75, CRP 30.3 Patient had IR guided peritoneal drain placed on 04/18/2024 and removal on 04/21/2024 Patient received 9 days of Zosyn 3.375 g IV Q8 hourly from [04/15 - 04/23] Patient received 1 day of ceftriaxone 1 g IV daily and metronidazole 500mg IV q8hrly [04/23-04/24] Plan: ? Regular diet ? Discontinued ceftriaxone 2 g IV daily on [04/23?04/24] ? Discontinue metronidazole 500 Mg IV Q8 hourly on [04/23?04/24] ? Started on Zosyn 3.375 g IV every 6 hourly on [04/24 ? General Surgery, Dr. Chahal recommended to monitor a.m. labs and possible IR guided aspiration of remaining abscess collection. ? General Surgery, Dr. Chahal consulted. Appreciate recommendations ? GI, Dr. Denton consulted. Appreciate recommendations 3. Acute kidney injury prerenal versus renal?resolved On presentation BUN 33, creatinine 1.7, GFR 48 BUN improved to 21 and CR 0.8 4. Urinary tract infection - treated UA significant for rare bacteria, WBC 44, RBC 7 nitrite and leukocyte esterase negative. Patient received 9 days Zosyn and still currently on IV antibiotic. 5. Bilateral renal calculi Bilateral renal calculi nonobstructing largest measuring 3 mm in the left kidney, perinephric fat stranding bilaterally Plan: -Consider outpatient workup 6. Mild transaminitis?resolving AST 76 ---> 60 , ALT 92---> 80, alk phos 141 ---> 129 Plan: ? Continue to monitor on CMP 7. Hypochloremic hyponatremia?resolved Continue maintenance fluids, monitor in a.m. NA 136, CL 98 Health maintenance: Disposition: Possible aspiration of Abdominal abscess tomorrow Diet: Regular Lines: pIVs GI Prophylaxis: None Thrombo Prophylaxis: None Code status: FULL CODE Attending Provider Attestation/Addendum I attest that I was physically present for the evaluation, physical examination, lab and imaging review of the patient with the residents. I discussed the case with the residents and agree with the findings and plans of care as documented above. At bedside today, patient appears comfortable. He underwent CT abdomen/pelvis, which showed resolution of posterior pelvic abscess. Patient still has anterior abdominal wall abscess 7.5 cm as per the CT. Discussed with general surgery, patient planned for IR guided aspiration tomorrow for the anterior abdominal wall abscess. Continues to be on IV Zosyn, we will discontinue metronidazole and ceftriaxone. Arturo Moss MD
[2024-04-24 16:00] VITALS: BP 127/82; PULSE 90; RESP 18; TEMP 36.3; O2SAT 95
[2024-04-24] MEDS: PIPER/TAZO 3.375 GM 50 ML IV ×2 (19:17→22:32)
--- NOTE | 2024-04-24 19:31 | PC.NURSE ---
Spoke to Betsey in pharmacy, Zosyn ordered at 1515 but not administered, I just administered at this time, and the next dose will be at 2200, asked pharmacy Betsey if still okay to administer at 2200 per Betsey it is fine.
[2024-04-24 20:00] VITALS: BP 143/95; PULSE 82; RESP 18; TEMP 36.1; O2SAT 94
[2024-04-25] VITALS (13 sets, daily range): BP systolic 128–166; BP diastolic 77–105; PULSE 49–92; RESP 14–22; TEMP 35.9–36.6; O2SAT 93–100
[2024-04-25] MEDS: PIPER/TAZO 3.375 GM 50 ML IV ×3 (05:16→22:13)
[2024-04-25] MEDS: HYDROmorphone INJ 2 MG/ML VIAL 1 MG IVP ×3 (05:27→21:37)
[2024-04-25 06:07] LABS: Partial Thromboplastin Time 28.2 Seconds (22.0-36.0); Prothrombin Time 11.4 Seconds (9.0-12.2)
[2024-04-25 06:23] LABS: Basophils # (Auto) 0.1 Thou/mm3 (0.0-0.2); Basophils % (Auto) 1 % (0-2.5); Eosinophils # (Auto) 0.1 Thou/mm3 (0.0-0.5); Eosinophils % (Auto) 2 % (0-10); Hematocrit 38.8 % (41.0-53.0); Hemoglobin 13.3 g/dL (13.5-16.0); Immature Granulocytes % (Auto) 1 % (0-0); Immature Granulocytes Auto 0.09 Thou/mm3 (0.00-0.00); Lymphocytes # (Auto) 0.8 Thou/mm3 (1.0-4.8); Lymphocytes % (Auto) 9 % (10-50); Mean Corpuscular HGB Conc 34.3 g/dl (31.0-37.0); Mean Corpuscular Hemoglobin 29.6 pg (25.0-35.0); Mean Corpuscular Volume 86 fL (80-100); Monocytes # (Auto) 0.6 Thou/mm3 (0.0-0.8); Monocytes % (Auto) 6 % (0-12); Neutrophils # (Auto) 7.3 Thou/mm3 (1.8-7.7); Neutrophils % (Auto) 82 % (37-80); Nucleated Red Blood Cell % 0 /100 WBC (0); Platelet Count 497 Thou/mm3 (140-440); RDW Standard Deviation 39.8 fL (35.1-43.9); Red Blood Count 4.49 Miln/mm3 (4.50-5.90); White Blood Count 8.9 Thou/mm3 (3.8-10.6)
[2024-04-25 06:40] LABS: Anion Gap 8 (7-16); BUN/Creatinine Ratio 12 Ratio (12-20); Blood Urea Nitrogen 11 mg/dL (9-23); Calcium 8.8 mg/dL (8.3-10.6); Carbon Dioxide 29.2 mMol/L (20.0-31.0); Chloride 101 mMol/L (98-107); Creatinine (Component) 0.9 mg/dL (0.6-1.3); Estimated Creatinine Clearance 110.3 mL/min (>60); Glucose 107 mg/dL (74-106); Osmolality,Calculated 275 (275-295); Potassium 3.7 mMol/L (3.4-5.1); Sodium 138 mMol/L (136-145); eGFR > 60 See Note
--- NOTE | 2024-04-25 08:16 | XR_ITS ---
Examination: CT guided percutaneous catheter drainage anterior abdominal abscess CT abdomen without intravenous contrast Date and time of procedure: April 25, 2024 1409 hours INDICATIONS: History lower abdominal abscess the last 2 weeks Informed consent provided. A timeout was completed verifying correct patient, procedure, site and positioning. Technique: Axial 3 mm sections were obtained for localization of the anterior lower abdominal abscess Appropriate area is marked. The patient's site was prepped and draped in sterile fashion Maximal sterile barrier technique utilized, including hand hygiene Local anesthesia was obtained with 1% lidocaine. Low dose protocols were performed. One or more of the following dose reduction techniques were used; automated exposure control, adjustment of the mA and/or KV according to patient size, use of iterative reconstruction technique. Utilizing CT fluoroscopic guidance 5 Cypriot catheter placed in the lower anterior abdominal abscess 50 cc grossly. A material removed Patient appears in stable condition during this procedure. At completion of the procedure, the patient is in satisfactory condition. Estimated blood loss 0 cc Complete pathology report to follow. Impression: Successful CT-guided catheter drainage anterior lower abdominal abscess
[2024-04-25] MEDS: KETOROLAC INJ 30 MG/ML VIAL 15 MG IVP (09:10)
[2024-04-25] MEDS: VANCOMYCIN/WATER 1250 MG IVPB 250 ML 120 MG IV ×2 (10:45→21:15)
--- NOTE | 2024-04-25 10:56 | ESPR_ITS ---
<Statement entered by Boris Lanier MD - 04/25/24 18:10> Patient started on Vanc as peritoneal fluid culture grew GPC along with GNR. Patient to undergo CT guided drainage for anterior abscess. I discussed with and supervised the restaurant management internship physician involved in the care of this patient. Patient assessment and plan was discussed with entire medicine team, including my attending. I agree with the assessment and plan as documented by restaurant management internship doctor. Patient care was discussed with my attending physician Dr. Dom Lanier, PGY-2 Documentation for date of: 04/25/24 Subjective Subjective Interval history: Patient was seen and examined at bedside this AM. This morning patient tripped over his peritoneal drain and it became dislodged. Patient NPO, adequate urine output and mentation is at baseline. Patient complains of abdominal pain. Ketorolac 15 Mg IV x 1 given Patient was scheduled for removal of peritoneal drain today by general surgeon Dr. Chahal. Drain already removed Patient currently n.p.o. and pending placement of anterior peritoneal drain for abscess. Abscess culture from 04/22 grew GPC preliminary. Started patient on vancomycin IV Exam Vital Signs Temp Pulse Resp BP Pulse Ox O2 Del Method O2 Flow Rate 97.3 F 92 17 134/86 H 95 Room Air 3 04/25/24 07:55 04/25/24 07:55 04/25/24 07:55 04/25/24 07:55 04/25/24 07:55 04/25/24 07:55 04/22/24 11:15 Narrative Exam Constitutional Alert, oriented x 3 and in mild distress. Middle-age male HEENT Vision grossly intact. Patent nares. Trachea midline Respiratory Chest normal on inspection and clear auscultation bilaterally Cardiovascular S1 and S2 audible, RRR. No murmurs carotid bruit. No gross JVD. Abdominal Soft, tender to palpation in left lower quadrant. Bowel sounds present Genitourinary No bladder tenderness, no flank pain. Normal to palpation Musculoskeletal Extremities tone within normal limits. No LE edema. Neurological CN II - XII grossly intact. Extremity motor and sensation grossly intact. Skin Warm, dry and intact. Psychiatric Patient has good affect, is cooperative Objective Labs 04/25/24 04:55 04/26/24 08:29 Labs: Laboratory Results - last 24 hr 04/25/24 04/25/24 04:55 04:57 WBC 8.9 RBC 4.49 L Hgb 13.3 L Hct 38.8 L MCV 86 MCH 29.6 MCHC 34.3 RDW Std Deviation 39.8 Plt Count 497 H Neut % (Auto) 82 H Lymph % (Auto) 9 L [place] % (Auto) 6 Eos % (Auto) 2 Baso % (Auto) 1 Neut # (Auto) 7.3 Lymph # (Auto) 0.8 L [place] # (Auto) 0.6 Eos # (Auto) 0.1 Baso # (Auto) 0.1 Immature Gran # (Auto) 0.09 H Absolute Nucleated RBC 0.00 Immature Gran % 1 H Nucleated RBC % 0 PT 11.4 INR 1.0 APTT 28.2 Sodium 138 Potassium 3.7 Chloride 101 Carbon Dioxide 29.2 Anion Gap 8 BUN 11 Creatinine 0.9 Estim Creat Clear Calc 110.3 eGFR > 60 BUN/Creatinine Ratio 12 Glucose 107 H Calculated Osmolality 275 Calcium 8.8 Quality Measures Quality Measures none Assessment & Plan Assessment Current Active Medications: Generic Name Dose Route Start Last Admin Trade Name Freq PRN Reason Stop Dose Admin Acetaminophen 650 mg 04/22/24 09:10 Acetaminophen 325 Mg Tablet PO 05/15/24 22:58 Q6H PRN Fever >100.3 or pain Protocol Hydrocodone Bitart/Acetaminophen 1 tab 04/22/24 09:10 Hydrocodone/Apap 5/325 Tablet PO 04/30/24 09:09 Q4HR PRN PAIN SCALE 7-10 (Severe Heparin Sodium (Porcine) 5,000 unit 04/20/24 21:00 04/25/24 09:06 Heparin Sod Inj 5000 Unit/Ml Vial SC 04/29/24 23:14 Not Given Q12HR ILDEFONSO Hydromorphone HCl 1 mg 04/22/24 09:08 04/25/24 10:53 Hydromorphone Inj 2 Mg/Ml Vial IVP 04/30/24 09:07 1 mg Q4HR PRN Administration BREAKTHROUGH PAIN Protocol Piperacillin/Tazobactam/Dextrose 50 mls @ 12.5 mls/hr 04/24/24 22:00 04/25/24 05:16 Zosyn IV 05/01/24 21:59 12.5 mls/hr Q8HR ILDEFONSO Administration Vancomycin HCl 250 mls @ 120 mls/hr 04/25/24 10:00 04/25/24 10:45 Vancomycin/Water 1250 Mg Ivpb IV 05/02/24 09:59 120 mls/hr BID@1000,2200 ILDEFONSO Administration Protocol Ketorolac Tromethamine 15 mg 04/22/24 09:10 04/25/24 09:10 Ketorolac Inj 30 Mg/Ml Vial IVP 04/26/24 16:18 15 mg Q6HR PRN Administration PAIN 4-6 (MODERATE) Magnesium Hydroxide 30 ml 04/21/24 10:50 Milk Of Magnesia Susp 30 Ml Udc PO 05/21/24 10:49 QDAY PRN CONSTIPATION Protocol Naloxone HCl 2 mg 04/19/24 23:53 Naloxone Inj 1 Mg/Ml Syringe 2 Ml IM 05/19/24 23:52 Q3M PRN OPIATE REVERSAL Ondansetron HCl 4 mg 04/15/24 22:59 04/20/24 07:42 Ondansetron Inj 2 Mg/Ml Inj 2 Ml IV 05/15/24 22:58 4 mg Q6H PRN Administration NAUSEA OR VOMITING Protocol Pharmacy Consult 1 each 04/25/24 09:00 Vancomycin Pharmacy To Dose 1 Each Each IV 05/25/24 08:59 QDAY PRN CONSULT Polyethylene Glycol 17 gm 04/20/24 14:45 04/25/24 09:07 Polyethylene Glycol 17 Gm Packet PO 05/20/24 14:44 Not Given BID ILDEFONSO Plan Mr. William is a 53-year-old male who presented to [facility] emergency department on 04/15/24 with a chief complaints of abdominal pain and distention. Patient was recently seen in the ED on 04/07/2024 diagnosed with diverticulitis and was discharged on oral antibiotics. Patient admitted to hospital for further management of complicated sigmoid diverticulitis. 1. Complicated sigmoid diverticulitis with pelvic abscess s/p peritoneal drain 04/22/2024 2. Sepsis secondary to perforated diverticulitis - resolving Initially presented to ED on 04/07/24 was diagnosed with diverticulitis, was discharged on oral antibiotics had progressive worsening of symptoms. Patient met SIRS criteria patient tachycardic, WBC count 18.4. Patient also had endorgan damage of BENEDICT Sepsis due to [perforated sigmoid diverticulitis] with acute sepsis-related organ dysfunction as evidence by [acute kidney injury, creatinine of 1.7 on admission]. Abdomen/pelvis CT completed on 04/15/2024 findings include: Bilobed pelvic abscess collection, transverse dimension 18 cm Abdomen/pelvis CT completed on 04/21/2024 findings include: Marked decrease in size of anterior abdominal wall abscess. New abscess in posterior pelvis 7 x 6.8 cm amenable to catheter drainage placement. Abdomen/pelvis CT completed on 04/24/2024 findings include posterior pelvic abscess resolved. Anterior abdominal wall abscess 7.5 cm in transverse diameter, consider insertion of catheter and drainage. 1 additional 3 cm abscess mid abdomen not amenable to drainage. Pro-Brian 1.75, CRP 30.3 Peritoneal abscess culture 04/18 grew E. coli and Bacteroides sensitive to Zosyn. Peritoneal abscess culture from 04/22 grew GPC preliminary. Patient had IR guided peritoneal drain placed on 04/18/2024 and removal on 04/21/2024 Patient received 9 days of Zosyn 3.375 g IV Q8 hourly from [04/15 - 04/23] Patient received 1 day of ceftriaxone 1 g IV daily and metronidazole 500mg IV q8hrly [04/23-04/24] Plan: ? Regular diet ? Started vancomycin IV pharmacy to dose on [04/25? ? Continue Zosyn 3.375 g IV every 6 hourly on [04/24 ? General Surgery, Dr. Chahal consulted. Appreciate recommendations ? GI, Dr. Denton consulted. Appreciate recommendations 3. Acute kidney injury prerenal versus renal?resolved On presentation BUN 33, creatinine 1.7, GFR 48 BUN improved to 21 and CR 0.8 4. Urinary tract infection - treated UA significant for rare bacteria, WBC 44, RBC 7 nitrite and leukocyte esterase negative. Patient received 9 days Zosyn and still currently on IV antibiotic. 5. Bilateral renal calculi Bilateral renal calculi nonobstructing largest measuring 3 mm in the left kidney, perinephric fat stranding bilaterally Plan: -Consider outpatient workup 6. Mild transaminitis?resolving AST 76 ---> 60 , ALT 92---> 80, alk phos 141 ---> 129 Plan: ? Continue to monitor on CMP 7. Hypochloremic hyponatremia?resolved Continue maintenance fluids, monitor in a.m. NA 136, CL 98 Health maintenance: Disposition: CT-guided peritoneal drain by IR. IV antibiotics Diet: NPO Lines: pIVs GI Prophylaxis: None Thrombo Prophylaxis: None Code status: FULL CODE Plan of care discussed with Attending Dr. Moss and PGY2 Dr. Yannick Montgomery MD PGY 1 Attending Provider Attestation/Addendum I attest that I was physically present for the evaluation, physical examination, lab and imaging review of the patient with the residents. I discussed the case with the residents and agree with the findings and plans of care as documented above. At bedside today, patient is stated he is in pain as he accidentally tripped over and dislodged his peritoneal drain. Peritoneal culture from 04/22/2024 grew GPCs, IV vancomycin added. Patient undergoing IR abscess drainage for his anterior abdominal wall abscess. We will also continue with IV Zosyn. Arturo Moss MD
[2024-04-25] MEDS: fentaNYL CIT INJ 50 mCg/ML AMP 2ML 100 MCG IVP (14:25)
--- NOTE | 2024-04-25 14:28 | PD.SURPROG ---
Documentation for date of: 04/25/24 Subjective Subjective Brief History: 53M presenting with abdominal pain. Patient reports pain began 10 days ago in the left lower quadrant, he denies any history of similar pain. Pain is associated with loose stools, subjective fever and chills. Patient first presented to the ER when the pain began and at that time had findings of acute diverticulitis but no abscess and he was discharged home with antibiotics, however yesterday he was seen by GI and advised to seek care in ER. While in the ER workup showed WBC 18, and CT indicative of a pelvic abscess Patient reports he has never had a colonoscopy, states that he was feeling very well before pain began 10 days ago. 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 Family history: No known CRC Narrative: Pt went for aspiration of abdominal abscess, accidentally pulled out pelvic catheter but it was due to be removed Exam Vital Signs Temp Pulse Resp BP Pulse Ox O2 Del Method O2 Flow Rate 97.8 F 50 L 14 141/91 H 98 Room Air 3 04/25/24 13:56 04/25/24 13:56 04/25/24 13:56 04/25/24 13:56 04/25/24 13:56 04/25/24 13:56 04/22/24 11:15 Results Results: Laboratory Laboratory results: results reviewed Results: Imaging CT scan - abdomen: report reviewed and image reviewed Assessment & Plan Plan 53M otherwise healthy presenting with first episode of acute diverticulitis with abscess, s/p percutaneous drain 04/18 which has resolved that abscess, patient additionally noted to have a pelvic abscess which was drained 04/22, both drains since removed now undergoing aspiration of additional abscess Trend WBC Possible dc tomorrow pending labs and overall clinical status
[2024-04-25] MEDS: HEPARIN SOD INJ 5000 UNIT/ML VIAL SC (21:22)
[2024-04-25] MEDS: POLYETHYLENE GLYCOL 17 GM PACKET PO (21:23)
--- NOTE | 2024-04-25 21:24 | ESPR_ITS ---
Documentation for date of: 04/25/24 Subjective Subjective Interval history: Patient evaluated the catheter came out accidentally Patient will have a new catheter drainage today Exam Vital Signs Temp Pulse Resp BP Pulse Ox O2 Del Method O2 Flow Rate 96.8 F 58 L 18 128/77 96 Room Air 3 04/25/24 20:00 04/25/24 20:00 04/25/24 20:00 04/25/24 20:00 04/25/24 20:00 04/25/24 20:00 04/25/24 14:40 Objective Labs 04/25/24 04:55 04/25/24 04:55 Labs: Laboratory Results - last 24 hr 04/25/24 04/25/24 04:55 04:57 WBC 8.9 RBC 4.49 L Hgb 13.3 L Hct 38.8 L MCV 86 MCH 29.6 MCHC 34.3 RDW Std Deviation 39.8 Plt Count 497 H Neut % (Auto) 82 H Lymph % (Auto) 9 L [place] % (Auto) 6 Eos % (Auto) 2 Baso % (Auto) 1 Neut # (Auto) 7.3 Lymph # (Auto) 0.8 L [place] # (Auto) 0.6 Eos # (Auto) 0.1 Baso # (Auto) 0.1 Immature Gran # (Auto) 0.09 H Absolute Nucleated RBC 0.00 Immature Gran % 1 H Nucleated RBC % 0 PT 11.4 INR 1.0 APTT 28.2 Sodium 138 Potassium 3.7 Chloride 101 Carbon Dioxide 29.2 Anion Gap 8 BUN 11 Creatinine 0.9 Estim Creat Clear Calc 110.3 eGFR > 60 BUN/Creatinine Ratio 12 Glucose 107 H Calculated Osmolality 275 Calcium 8.8 Impressions Impression: # Pelvic abscess will have placement of a IR catheter drainage today Assessment & Plan A&P Narrative # Acute sigmoid diverticulitis # Pelvic abscess 18 cm fluid collection plan Broad-spectrum IV antibiotics IR drainage of the pelvic abscess Will follow the patient Thank you for the opportunity to participate in the care of this patient Time Spent With Patient Time: Total time spent is greater than 50% in coordination of care (as documented) at patient's floor/unit and/or counseling patient:
[2024-04-26] VITALS: BP 129/81; PULSE 49; RESP 16; TEMP 35.8; O2SAT 97
[2024-04-26 04:00] VITALS: BP 134/76; PULSE 57; RESP 16; TEMP 36.2; O2SAT 95
[2024-04-26] MEDS: HYDROmorphone INJ 2 MG/ML VIAL 1 MG IVP ×2 (04:08→09:26)
[2024-04-26] MEDS: PIPER/TAZO 3.375 GM 50 ML IV (05:05)
[2024-04-26 07:37] VITALS: BP 169/91; PULSE 59; RESP 16; TEMP 36.2; O2SAT 98
--- NOTE | 2024-04-26 08:24 | PD.SURPROG ---
Documentation for date of: 04/26/24 Subjective Subjective Brief History: 53M presenting with abdominal pain. Patient reports pain began 10 days ago in the left lower quadrant, he denies any history of similar pain. Pain is associated with loose stools, subjective fever and chills. Patient first presented to the ER when the pain began and at that time had findings of acute diverticulitis but no abscess and he was discharged home with antibiotics, however yesterday he was seen by GI and advised to seek care in ER. While in the ER workup showed WBC 18, and CT indicative of a pelvic abscess Patient reports he has never had a colonoscopy, states that he was feeling very well before pain began 10 days ago. 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 Family history: No known CRC Narrative: Pain controlled, underwent percutaneous drainage of another abscess yesterday, feeling well overall Exam Vital Signs Temp Pulse Resp BP Pulse Ox O2 Del Method O2 Flow Rate 97.1 F 59 L 16 169/91 H 98 Room Air 3 04/26/24 07:37 04/26/24 07:37 04/26/24 07:37 04/26/24 07:37 04/26/24 07:37 04/26/24 07:37 04/25/24 14:40 Constitutional Constitutional: no acute distress Routine Respiratory Exam Respiratory: Present no resp distress Routine Abdominal Exam Abdominal: Present soft; Absent tenderness or distended Results Results: Laboratory Laboratory results: results reviewed Results: Imaging CT scan - abdomen: report reviewed and image reviewed Assessment & Plan Plan 53M otherwise healthy presenting with first episode of acute diverticulitis with abscess, s/p percutaneous drain 04/18 and another 04/22, followed by aspiration of remaining abscess 04/25 recovering well. OK for dc from my standpoint Will follow up as outpt to discuss elective sigmoidectomy
--- NOTE | 2024-04-26 09:16 | PC.SS ---
Follow up note: Pt will be switched to oral antibiotic and will return home upon dc.
[2024-04-26] MEDS: POLYETHYLENE GLYCOL 17 GM PACKET PO (09:18)
[2024-04-26] MEDS: HEPARIN SOD INJ 5000 UNIT/ML VIAL SC (09:18)
[2024-04-26 09:22] LABS: Alanine Aminotransferase 27 U/L (10-49); Albumin, Serum 3.7 gm/dL (3.5-5.0); Albumin/Globulin Ratio 1.2 (1.2-2.2); Alkaline Phosphatase 67 U/L (46-116); Anion Gap 6 (7-16); Aspartate Amino Transferase 32 U/L (0-34); BUN/Creatinine Ratio 11 Ratio (12-20); Bilirubin,Total 0.4 mg/dL (0.3-1.2); Blood Urea Nitrogen 9 mg/dL (9-23); Calcium (Corrected) 9.2 mg/dL (8.5-10.1); Carbon Dioxide 30.2 mMol/L (20.0-31.0); Chloride 101 mMol/L (98-107); Creatinine (Component) 0.8 mg/dL (0.6-1.3); Estimated Creatinine Clearance 124.1 mL/min (>60); Glucose 109 mg/dL (74-106); Osmolality,Calculated 273 (275-295); Potassium 4.2 mMol/L (3.4-5.1); Sodium 137 mMol/L (136-145); Total Protein 6.7 gm/dL (5.7-8.2); eGFR > 60 See Note
[2024-04-26 12:00] VITALS: BP 143/97; PULSE 60; RESP 16; TEMP 36.6; O2SAT 96
--- NOTE | 2024-04-26 18:36 | ESDS_ITS ---
<Statement entered by Boris Lanier MD - 04/27/24 16:52> I discussed with and supervised the internal controls specialist physician involved in the care of this patient. Patient assessment and plan was discussed with entire medicine team, including my attending. I agree with the assessment and plan as documented by internal controls specialist doctor. Patient care was discussed with my attending physician Dr. Ajay Lanier, PGY-2 Planned Discharge Date 04/26/24 DS: Providers Provider Date of admission: 04/15/24 22:59 Primary care physician: Physician Amparo Primary/Family Admitting Provider: Arturo Moss MD Attending Provider on Admission: Matt Carey Consults: 04/15/24 22:31 Consult to General Surgery Stat Comment: Consulting Provider: Chandni Chahal 04/15/24 23:04 Consult to Gastroenterology Routine Comment: Complicated sigmoid diverticulitis Consulting Provider: Bhupendra Denton 04/16/24 01:42 Referral Registered Dietitian Routine Comment: Attending Provider on DC: Boris Lanier MD Discharging Provider: Borsi Lanier MD DS: Diagnosis Problem List Completed Was Problem List Reviewed/Reconciled?: Yes Hospital Course Hospital Course Hospital course: Mr. William a 53-year-old male who presented to [facility] emergency department on 04/15/24 with a chief complaints of abdominal pain and distention. Patient was recently seen in the ED on 04/07/2024 diagnosed with diverticulitis and was discharged on oral antibiotics. Patient reported that his symptoms did not subside and progressively got worse reports having increased pain, distention and poor oral intake with increasing nausea and burning pain. Patient was seen and evaluated by GI specialist earlier today who advised patient to go to the ER. In the ED CT abdomen pelvis findings suggestive of large multiloculated abscess in mid and lower abdomen with additional abscess in pelvis with possible communication likely secondary to perforated complicated sigmoid diverticulitis. General surgeon Dr. Chahal was consulted while patient was in hospital. Patient underwent abscess drainage and received IV antibiotics while in hospital. Over time patient's symptoms improved, was tolerating p.o. intake and had multiple bowel movements. Patient was deemed safe to be discharged home on oral antibiotics Doxycycline and [place] as needed for pain. Discharge summary was reviewed with my attending Dr. Ajay Lanier, PGY-2 Status at Discharge Overall status at discharge: patient is progressing back to baseline Time Spent with Patient Time attestation: Total time spent providing and/or coordinating discharge services: Time spent: Greater than 30 minutes Exam Vital Signs Temp Pulse Resp BP Pulse Ox O2 Del Method O2 Flow Rate 97.8 F 60 16 143/97 H 96 Room Air 3 04/26/24 12:00 04/26/24 12:00 04/26/24 12:04/26/24 12:04/26/24 12:04/26/24 12:04/25/24 14:40 Narrative Exam Constitutional Alert, oriented x 3 and in mild distress. Middle-age male HEENT Vision grossly intact. Patent nares. Trachea midline Respiratory Chest normal on inspection and clear auscultation bilaterally Cardiovascular S1 and S2 audible, RRR. No murmurs carotid bruit. No gross JVD. Abdominal Soft, tender to palpation in left lower quadrant. Bowel sounds present Genitourinary No bladder tenderness, no flank pain. Normal to palpation Musculoskeletal Extremities tone within normal limits. No LE edema. Neurological CN II - XII grossly intact. Extremity motor and sensation grossly intact. Skin Warm, dry and intact. Psychiatric Patient has good affect, is cooperative Discharge Plan Plan Patient Disposition: HOME (Self Care) Disposition Comment: Stable Care Plan Goals: Please follow up with PCP and general surgeon within x1 week Please complete course of antibiotics as prescribed If fever, chills, worsening pain, please go to your nearest hospital/ED Prescriptions/Referrals Prescriptions/Med Rec: New doxycycline hyclate 100 mg capsule 100 mg PO BID Qty: 10 0RF hydrocodone-acetaminophen 5-325 mg tablet 1 tab PO Q8H MDD 15 PRN (Reason: pain) Qty: 15 0RF Referrals: Chandni Chahal MD [Physician] - (You will receive a phone call to confirm a follow-up appointment with me in 2 weeks) No Primary/Family,Physician [Primary Care Provider] - Outpatient Orders (i.e. Home Health, Labs, Imaging): Acetaminophen (Routine) Location: None Selected Ordered By: Boris Lanier Patient/Caregiver Discharge Instructions Discharge Activity: activity as tolerated Other Discharge Diet Instructions: Please follow up with PCP and general surgeon within x1 week Please complete course of antibiotics as prescribed If fever, chills, worsening pain, please go to your nearest hospital/ED Education Materials: Diverticulosis Diverticulitis, Anatomy of the Digestive System, How the Colon Works Print Language: Surinamese Stand Alone Forms: Audra Award Info., Patient Portal Info Letter Discharge Order Discharge Orders: Discharge (Routine); Ordered 04/26/24 Ordered By: Boris Lanier Quality Discharge Quality Measures VTE prophylaxis MD Attestestation MD Attestation I attest that I was physically present for the evaluation, physical examination, lab and imaging review of the patient with the residents. I discussed the case with the residents and agree with the findings and plans of care as documented above. Arturo Moss MD
== END 2024-04-26 13:03 | disposition home or self-care (01) | DRG 871 ==
LOC: SERX 22:45 → SERHOLD 23:25 → S3SX 04-16 01:29
PROVIDERS: Radiology Diagnostic Radiology; Admitting Provider Student in an Organized Health Care Education/Training Program; Emergency Provider Emergency Medicine
DX: A41.9 Sepsis, unspecified organism (principal); K65.1 Peritoneal abscess; K57.20 Diverticulitis of large intestine with perforation and abscess without bleeding; E87.1 Hypo-osmolality and hyponatremia; N17.9 Acute kidney failure, unspecified; N20.0 Calculus of kidney; E87.8 Other disorders of electrolyte and fluid balance, not elsewhere classified; R65.20 Severe sepsis without septic shock; N30.90 Cystitis, unspecified without hematuria; R74.01 Elevation of levels of liver transaminase levels
CPT/HCPCS: 36415; 74176; 74177; 77012; 80048; 80053; 80061; 80202; 81001; 83605; 83690; 83735; 84100; 84145; 85025; 85610; 85730; 86140; 87040; 87070; 87075; 87076; 87077; 87086; 87186; 87205; 93005; 94664; 96361; 96365; 96367; 96372; A4649; C1729; C1769; J0696; J1643; J1885; J2405; J2470; J2543; J3010; J3372; J3480; J3490; J7030; J7050; Q0162; Q9967; A9270; J1836

== ENCOUNTER → 2024-05-06 | Outpatient (CLI) | payer OTHER, SELFPAY ==
[2024-05-06 12:21] LABS: Basophils # (Auto) 0.1 Thou/mm3 (0.0-0.2); Basophils % (Auto) 2 % (0-2.5); Eosinophils # (Auto) 0.2 Thou/mm3 (0.0-0.5); Eosinophils % (Auto) 3 % (0-10); Hematocrit 42.1 % (41.0-53.0); Hemoglobin 14.2 g/dL (13.5-16.0); Immature Granulocytes % (Auto) 1 % (0-0); Immature Granulocytes Auto 0.03 Thou/mm3 (0.00-0.00); Lymphocytes # (Auto) 1.6 Thou/mm3 (1.0-4.8); Lymphocytes % (Auto) 32 % (10-50); Mean Corpuscular HGB Conc 33.7 g/dl (31.0-37.0); Mean Corpuscular Hemoglobin 29.2 pg (25.0-35.0); Mean Corpuscular Volume 86 fL (80-100); Monocytes # (Auto) 0.4 Thou/mm3 (0.0-0.8); Monocytes % (Auto) 8 % (0-12); Neutrophils # (Auto) 2.7 Thou/mm3 (1.8-7.7); Neutrophils % (Auto) 55 % (37-80); Nucleated Red Blood Cell % 0 /100 WBC (0); Platelet Count 433 Thou/mm3 (140-440); RDW Standard Deviation 40.5 fL (35.1-43.9); Red Blood Count 4.87 Miln/mm3 (4.50-5.90); White Blood Count 4.9 Thou/mm3 (3.8-10.6)
[2024-05-06 12:42] LABS: Alanine Aminotransferase 42 U/L (10-49); Albumin, Serum 4.3 gm/dL (3.5-5.0); Albumin/Globulin Ratio 1.5 (1.2-2.2); Alkaline Phosphatase 73 U/L (46-116); Anion Gap 7 (7-16); Aspartate Amino Transferase 19 U/L (0-34); BUN/Creatinine Ratio 13 Ratio (12-20); Bilirubin,Total 0.5 mg/dL (0.3-1.2); Blood Urea Nitrogen 10 mg/dL (9-23); Calcium 9.8 mg/dL (8.3-10.6); Calcium (Corrected) 9.8 mg/dL (8.5-10.1); Carbon Dioxide 30.2 mMol/L (20.0-31.0); Chloride 100 mMol/L (98-107); Creatinine (Component) 0.8 mg/dL (0.6-1.3); Globulin 2.9 gm/dL (2.3-3.5); Glucose 103 mg/dL (74-106); Osmolality,Calculated 272 (275-295); Potassium 4.9 mMol/L (3.4-5.1); Sodium 137 mMol/L (136-145); Total Protein 7.2 gm/dL (5.7-8.2); eGFR > 60 See Note
== END | disposition home or self-care (01) ==
LOC: COPL 11:06
PROVIDERS: PCP Internal Medicine; Referring Provider Specialist; Visit Provider Specialist
DX: K92.2 Gastrointestinal hemorrhage, unspecified (principal); R10.32 Left lower quadrant pain; R10.31 Right lower quadrant pain
CPT/HCPCS: 36415; 80053; 85025

== ENCOUNTER → 2024-05-07 | Outpatient (CLI) | payer OTHER, SELFPAY ==
--- NOTE | 2024-05-07 16:06 | XR_ITS ---
Examination: CT abdomen with intravenous contrast CT pelvis with intravenous contrast 2-D coronal reconstructions 2-D sagittal reconstructions Date and time of exam:May 07, 2024 1615 hrs. Indications: History upper and lower abdominal pain with distention today, history CT-guided catheter drainage anterior lower abdominal abscess April 25, 2024. CTDI: vol (mGy) 7.84 DLP: (mGycm) 486 Technique: Multiple axial sections of the abdomen and pelvis have been obtained. 64 slice high-resolution scanner used. 3 mm axial sections have been obtained, post intravenous injection 60 cc [id number] 2-D sagittal, coronal reconstructions obtained. Low dose protocols were performed. One or more of the following dose reduction techniques were used; automated exposure control, adjustment of the mA and/or KV according to patient size, use of iterative reconstruction technique. Findings: No focal liver or splenic lesions Contracted gallbladder No pancreatic or adrenal mass No hydronephrosis Normal appendix Inflammatory change in the pelvis The lower anterior pelvic abscess is no longer identified There is a small fluid collection anterior to the rectum, 33 mm that is too small for successful placement of a drainage catheter The bladder is intact Impression: The lower anterior abdominal abscess noted on the April 25, 2024 exam is no longer identified There is a small fluid collection anterior to the rectum, 33 mm, that is too small for successful placement of a drainage catheter
== END | disposition home or self-care (01) ==
PROVIDERS: Referring Provider Specialist; Visit Provider Specialist
DX: L02.211 Cutaneous abscess of abdominal wall (principal)
CPT/HCPCS: 74177; A4649; Q9967

== ENCOUNTER 2024-05-27 09:23 | Outpatient (AMB) | payer OTHER, SELFPAY ==
--- NOTE | 2024-05-27 09:28 | GSCOFFNT_ITS ---
Vital Signs - [facility] 05/27/24 09:29 Height 1.78 m Height Method Stated Weight 84.822 kg Weight Measurement Method Standing Scale BMI 26.7 BP 129/85 H Blood Pressure Source Automatic Cuff Blood Pressure Location Left Upper Arm Position Sitting Respiration 18 Pulse 60 Pulse Source Monitor Temp 96.1 F L Temp Source Temporal Artery Scan Pulse Oximetry (%) 99 Oxygen Delivery Method Room Air Med/Allergies Allergies & Medications Allergies No Known Allergies Allergy (Verified 05/27/24 09:29) Medication Reconciliation doxycycline hyclate 100 mg capsule 100 mg PO BID #10 caps 04/26/24 [Rx Confirmed 05/27/24] hydrocodone 5 mg-acetaminophen 325 mg tablet 1 tab PO Q8H PRN pain #15 tabs 04/26/24 [Rx Confirmed 05/27/24] MA Intake Visit Data Collection New Patient or Established: Established Patient (seen at [facility] within 3 years) Seen by Clinical Staff ONLY (RN/MA): No Reason for Visit:: FOLLOW UP Pain Present Currently: No Secret Code Expert Required: No PCP or OBGYN visit in last 3 months: Yes Hx Now: No Do You Feel Safe at Home: Yes Authorities Contacted: N/A Smoking Status Smoking Status: Never smoker Immunization / Flu Flu Vaccine in the Last 12 Months: No Flu Vaccine Exclusion Criteria: Refused by Patient Past Medical History Past Medical History CARDIAC: Negative Cardiac Disorders or Congestive Heart Failure RESPIRATORY: Negative Chronic Obstructive Pulmonary Disease (COPD) or Asthma GENITOURINARY: Negative Renal Disease MUSCULOSKELETAL: Negative Carpal Tunnel Syndrome ENDOCRINE: Negative Diabetes Mellitus Type 1 or Diabetes Mellitus Type 2 HEMATOLOGIC: Negative Sickle Cell Disease Family History FAMILY HISTORY: Negative Family Gastrointestinal Problems Social History SMOKING STATUS: Smoking status: Never smoker SECOND HAND EXPOSURE: second hand exposure: No ALCOHOL: Alcohol Intake: Never HOUSING: Housing: House LIVES WITH: Lives With: Family HPI HPI Narrative 53M admitted 04/16-04/26/24 with diverticulitis and associated abscesses here for another follow up. Pt reports that he feels better than at last visit, with less abdominal pain, no difficulty urinating and his appetite now around 75% of his baseline. He is drinking plenty of water, taking fiber and stool softeners and having regular BMs. Pt does not some LLQ and LUQ discomfort which tends to improve after he has a BM. He underwent a repeat CT 2/25 which showed a small fluid collection anterior to the rectum not amenable to drainage ROS Review of Systems Systems Reviewed: All systems reviewed, normal except as documented Objective/Exam General General Appearance: alert, cooperative and well groomed Resp Respiratory exam: Absent respiratory distress Results CT reviewed Assessment & Plan Diagnosis / Problem List (1) Perforation of sigmoid colon due to diverticulitis: Status: Acute Assessment & Plan: 53M otherwise healthy treated for complicated diverticulitis Apr 2024, gradually recovering. Pt is following up with Dr Denton and will have elective colonoscopy in the next few months. I explained that sigmoidectomy would provide definitive treatment and that it is best undertaken in a minimally invasive fashion which could be done by specialists in [place] or [place]. Pt prefers to pursue this route, will follow up after his colonoscopy for referral Office Procedures GNS Level of Care Nursing/Assessment Patient Status: Established Patient Nursing Assessment/Reassesment: Medication Reconciliation, Update PMH in EMR and Vital Signs Coordination of Care: Complex Care and Chronic Disease 1-5, Consent,records obtained, informed consent, Education Simp Pt/Fam, Results/Orders obtained and Staff clarify orders Established Patient Charge Established Patient Point Assignment: 90 Established Patient Point Charge: EP Level 3 (80-115) Patient Portal Questionaires Social History Living Situation History Housing: House Housing Other:: Pt lives with family Tobacco History Smoking Status: Never smoker Second Hand Smoke Exposure: No Alcohol History Alcohol Intake: Never Domestic Abuse History Do You Feel Safe at Home: Yes Review of Systems Report any current symptoms Only answer those that you have currently: Past Medical History Past Medical History Have you ever been diagnosed with any of the following: Cardiology Problems Congestive Heart Failure: No Respiratory Problems Chronic Obstructive Pulmonary Disease (COPD): No Asthma: No Genital/Urinary Problems Renal Disease: No Musculoskeletal Problems Carpal Tunnel Syndrome: No Endocrine Problems Diabetes Mellitus Type 1: No Diabetes Mellitus Type 2: No Blood Problems Sickle Cell Disease: No
[2024-05-27 09:29] VITALS: BP 129/85; PULSE 60; RESP 18; TEMP 35.6; O2SAT 99; BMI 26.7
== END 2024-05-27 09:49 | disposition home or self-care (01) ==
LOC: HODSRG 09:23
PROVIDERS: Supervising Provider Surgery; Visit Provider Surgery
DX: K57.20 Diverticulitis of large intestine with perforation and abscess without bleeding (principal)
CPT/HCPCS: 99213; G0463